=== PATIENT | male | born 1955 | race Caucasian/White ===

== ENCOUNTER → 2016-09-03 | Emergency (ER) | payer BC ==
[~2016-09-03] MED LIST: Aspirin Low Dose CHEW TAB* 81 MG PO ONE; NS 0.9% 1000 ML* 1,000 ML IV SCH
[2016-09-03 12:11] LABS: Hematocrit 46 % (42-52); Hemoglobin 15.9 g/dl (14.0-18.0); Mean Corpuscular HGB Conc 35 g/dl (31-36); Mean Corpuscular Hemoglobin 37 pg (27-31); Mean Corpuscular Volume 105 fL (80-94); Mean Platelet Volume 8 um3 (7.4-10.4); Red Blood Count 4.35 10^6/ul (4.0-5.4); Red Cell Distribution Width 13 % (10.5-15); White Blood Count 5.8 10^3/ul (3.5-10.8)
[2016-09-03 12:23] LABS: BUN/Creatinine Ratio 11.7 (8-20); EGFR Non-African American 61.8 (>60); Potassium 3.9 mmol/L (3.5-5.0)
[2016-09-03 12:24] LABS: Albumin 3.8 g/dL (3.2-5.2); C Reactive Protein 5.31 mg/L (< 5.00); Calcium 9.7 mg/dL (8.6-10.3); EGFR African American 79.4 (>60); Globulin 2.9 g/dL (2-4); Magnesium 2.2 mg/dL (1.9-2.7); Total Bilirubin 0.5 mg/dL (0.2-1.0); Total Protein 6.7 g/dL (6.4-8.9)
[2016-09-03 12:36] LABS: TSH (Thyroid Stimulating Horm) 1.35 mcIU/mL (0.34-5.60)
--- NOTE | 2016-09-03 12:38 | RAD ---
INDICATION: Chest pain COMPARISON: Chest x-ray dated March 30, 2013 TECHNIQUE: Single AP portable view of the chest was obtained. FINDINGS: Image quality is compromised due to the relative inferiority of a portable chest x-ray. The heart and mediastinum exhibit normal size and contour. The lungs are grossly clear. There is no evidence of a large pleural effusion. Visualized bones are normal for the patient's age. IMPRESSION: No radiographic evidence for acute cardiopulmonary abnormality on this portable chest x-ray.
[2016-09-03 13:43] LABS: Urine Bacteria Absent (Absent); Urine Bilirubin Negative (Negative); Urine Glucose Negative (Negative); Urine Nitrite Negative (Negative)
--- NOTE | 2016-09-03 13:57 | ED ---
Dayana Núñez Adam, scribed for Prince Luna MD on 09/03/16 at 1157 . HPI Chest Pain - HPI Summary HPI Summary: A 61 y/o male presents to the ED c/o CP that started around 10:00 this morning while he was sitting at his desk working on the computer. Initially, he rated the pain as 5/10 and currently he has no pain. He describes it as dull with pressure, located left anterior, and lasting 1 hour. Patient denies nausea, diaphoresis, lightheadedness, abdominal pain, or pain with inspiration. PMHx is positive for HTN and chronic lower extremity edema. FHx is negative for CAD. He is a former smoker. - History of Current Complaint Chief Complaint: EDChestPainROMI Time Seen by Provider: 09/03/16 11:40 Hx Obtained From: Patient Onset/Duration: Started Hours Ago - 2 hours Timing: Intermittent Initial Severity: Moderate - 5/10 Current Severity: None Pain Intensity: 0 Pain Scale Used: 0-10 Numeric Chest Pain Location: Left Anterior Chest Pain Radiates: No Character: Dull/Aching, Pressure/Squeezing Aggravating Factor(s): Nothing Alleviating Factor(s): Spontaneous Resolution Associated Signs and Symptoms: Negative: Lightheadedness, Diaphoresis, Nausea, Abdominal Pain - Allergy/Home Medications Allergies/Adverse Reactions: Allergies Allergy/AdvReac Type Severity Reaction Status Date / Time Seasonal Allergy Congestion Uncoded 01/18/15 12:41 PMH/Surg Hx/FS Hx/Imm Hx Endocrine/Hematology History: Denies: Hx Diabetes, Hx Thyroid Disease Cardiovascular History: Reports: Hx Hypertension Respiratory History: Reports: Hx Sleep Apnea - re-evaluation 05/2013 Denies: Hx Asthma, Hx Chronic Obstructive Pulmonary Disease (COPD) GI History: Reports: Hx Gastroesophageal Reflux Disease Denies: Hx Ulcer History: Reports: Hx Benign Prostatic Hyperplasia Musculoskeletal History: Reports: Hx Back Problems - hx of, Other Musculoskeletal History - Chronic lower extremity edema Psychiatric History: Reports: Hx Anxiety, Hx Depression - Surgical History Surgery Procedure, Year, and Place: Left hand fracture repair - Immunization History Date of Influenza Vaccine: 04/2016 Infectious Disease History: Yes Infectious Disease History: Reports: Hx Human Immunodeficiency Virus (HIV) Denies: Hx Hepatitis, History Other Infectious Disease, Traveled Outside the [place] in Last 30 Days - Family History Known Family History: Negative: Cardiac Disease - Social History Alcohol Use: Occasionally Alcohol Amount: 2 glasses of wine Substance Use Type: Reports: None Smoking Status (MU): Former Smoker Type: Cigarettes Amount Used/How Often: occasional Review of Systems Constitutional: Negative Negative: Fever Eyes: Negative ENT: Negative Positive: Chest Pain - Left anterior Respiratory: Negative Negative: Shortness Of Breath Gastrointestinal: Negative Negative: Abdominal Pain Genitourinary: Negative Positive: Arthralgia - posterior cervical neck pain, Edema - Chronic lower extremity edema Skin: Negative Neurological: Negative Psychological: Normal All Other Systems Reviewed And Are Negative: Yes Physical Exam Triage Information Reviewed: Yes Vital Signs On Initial Exam: Initial Vitals Temp Pulse Resp BP Pulse Ox 97 F 73 16 140/94 100 09/03/16 11:33 09/03/16 11:33 09/03/16 11:33 09/03/16 11:33 09/03/16 11:33 Vital Signs Reviewed: Yes Appearance: Positive: Well-Appearing, No Pain Distress Skin: Positive: Warm, Skin Color Reflects Adequate Perfusion, Dry Head/Face: Positive: Normal Head/Face Inspection Eyes: Positive: EOMI, BRADLEY ENT: Positive: Normal ENT inspection Neck: Positive: Supple, Nontender Respiratory/Lung Sounds: Positive: Clear to Auscultation, Breath Sounds Present Cardiovascular: Positive: RRR Abdomen Description: Positive: Nontender, Soft Bowel Sounds: Positive: Present Musculoskeletal: Positive: Normal Neurological: Positive: Normal, Sensory/Motor Intact, Alert, Oriented to Person Place, Time Psychiatric: Positive: Affect/Mood Appropriate - Yi Coma Scale Coma Scale Total: 15 Diagnostics - Vital Signs Vital Signs Temp Pulse Resp BP Pulse Ox 09/03/16 11:33 97 F 73 16 140/94 100 - Laboratory Lab Results: Lab Results 09/03/16 09/03/16 09/03/16 Range/Units 11:42 11:42 11:42 WBC (3.5-10.8) 10^3/ul RBC (4.0-5.4) 10^6/ul Hgb (14.0-18.0) g/dl Hct (42-52) % MCV (80-94) fL MCH (27-31) pg MCHC (31-36) g/dl RDW (10.5-15) % Plt Count (150-450) 10^3/ul MPV (7.4-10.4) um3 Neut % (Auto) (38-83) % Lymph % (Auto) (25-47) % [place] % (Auto) (1-9) % Eos % (Auto) (0-6) % Baso % (Auto) (0-2) % Absolute Neuts (auto) (1.5-7.7) 10^3/ul Absolute Lymphs (auto) (1.0-4.8) 10^3/ul Absolute Monos (auto) (0-0.8) 10^3/ul Absolute Eos (auto) (0-0.6) 10^3/ul Absolute Basos (auto) (0-0.2) 10^3/ul Absolute Nucleated RBC 10^3/ul Nucleated RBC % INR (Anticoag Therapy) 0.89 (0.89-1.11) APTT 23.2 L (26.0-36.3) seconds D-Dimer, Quantitative < 200 (Less Than 230) ng/mL Sodium 137 (133-145) mmol/L Potassium 3.9 (3.5-5.0) mmol/L Chloride 103 (101-111) mmol/L Carbon Dioxide 29 (22-32) mmol/L Anion Gap 5 (2-11) mmol/L BUN 14 (6-24) mg/dL Creatinine 1.20 H (0.67-1.17) mg/dL Est GFR ( Amer) 79.4 (>60) Est GFR (Non-Af Amer) 61.8 (>60) BUN/Creatinine Ratio 11.7 (8-20) Glucose 98 (70-100) mg/dL Lactic Acid (0.5-2.0) mmol/L Calcium 9.7 (8.6-10.3) mg/dL Magnesium 2.2 (1.9-2.7) mg/dL Total Bilirubin 0.50 (0.2-1.0) mg/dL AST 27 (13-39) U/L ALT 35 (7-52) U/L Alkaline Phosphatase 53 (34-104) U/L Total Creatine Kinase 64 (10-223) U/L CK-MB (CK-2) 2.5 (0.6-6.3) ng/mL Troponin I 0.00 (<0.04) ng/mL C-Reactive Protein 5.31 H (< 5.00) mg/L B-Natriuretic Peptide 26 ( - 100) pg/mL Total Protein 6.7 (6.4-8.9) g/dL Albumin 3.8 (3.2-5.2) g/dL Globulin 2.9 (2-4) g/dL Albumin/Globulin Ratio 1.3 (1-3) Lipase 117 H (11.0-82.0) U/L TSH 1.35 (0.34-5.60) mcIU/mL Urine Color Urine Appearance Urine pH (5-9) Ur Specific [place] (1.010-1.030) Urine Protein (Negative) Urine Ketones (Negative) Urine Blood (Negative) Urine Nitrate (Negative) Urine Bilirubin (Negative) Urine Urobilinogen (Negative) Ur Leukocyte Esterase (Negative) Urine WBC (Auto) (Absent) Urine RBC (Auto) (Absent) Urine Bacteria (Absent) Urine Glucose (Negative) 09/03/16 09/03/16 09/03/16 Range/Units 11:42 11:42 13:19 WBC 5.8 (3.5-10.8) 10^3/ul RBC 4.35 (4.0-5.4) 10^6/ul Hgb 15.9 (14.0-18.0) g/dl Hct 46 (42-52) % MCV 105 H (80-94) fL MCH 37 H (27-31) pg MCHC 35 (31-36) g/dl RDW 13 (10.5-15) % Plt Count 159 (150-450) 10^3/ul MPV 8 (7.4-10.4) um3 Neut % (Auto) 40.2 (38-83) % Lymph % (Auto) 44.7 (25-47) % [place] % (Auto) 12.9 H (1-9) % Eos % (Auto) 1.3 (0-6) % Baso % (Auto) 0.9 (0-2) % Absolute Neuts (auto) 2.3 (1.5-7.7) 10^3/ul Absolute Lymphs (auto) 2.6 (1.0-4.8) 10^3/ul Absolute Monos (auto) 0.7 (0-0.8) 10^3/ul Absolute Eos (auto) 0.1 (0-0.6) 10^3/ul Absolute Basos (auto) 0.1 (0-0.2) 10^3/ul Absolute Nucleated RBC 0.01 10^3/ul Nucleated RBC % 0.1 INR (Anticoag Therapy) (0.89-1.11) APTT (26.0-36.3) seconds D-Dimer, Quantitative (Less Than 230) ng/mL Sodium (133-145) mmol/L Potassium (3.5-5.0) mmol/L Chloride (101-111) mmol/L Carbon Dioxide (22-32) mmol/L Anion Gap (2-11) mmol/L BUN (6-24) mg/dL Creatinine (0.67-1.17) mg/dL Est GFR ( Amer) (>60) Est GFR (Non-Af Amer) (>60) BUN/Creatinine Ratio (8-20) Glucose (70-100) mg/dL Lactic Acid 1.3 (0.5-2.0) mmol/L Calcium (8.6-10.3) mg/dL Magnesium (1.9-2.7) mg/dL Total Bilirubin (0.2-1.0) mg/dL AST (13-39) U/L ALT (7-52) U/L Alkaline Phosphatase (34-104) U/L Total Creatine Kinase (10-223) U/L CK-MB (CK-2) (0.6-6.3) ng/mL Troponin I (<0.04) ng/mL C-Reactive Protein (< 5.00) mg/L B-Natriuretic Peptide ( - 100) pg/mL Total Protein (6.4-8.9) g/dL Albumin (3.2-5.2) g/dL Globulin (2-4) g/dL Albumin/Globulin Ratio (1-3) Lipase (11.0-82.0) U/L TSH (0.34-5.60) mcIU/mL Urine Color Yellow Urine Appearance Clear Urine pH 6.0 (5-9) Ur Specific [place] 1.014 (1.010-1.030) Urine Protein Negative (Negative) Urine Ketones Trace H (Negative) Urine Blood Negative (Negative) Urine Nitrate Negative (Negative) Urine Bilirubin Negative (Negative) Urine Urobilinogen Negative (Negative) Ur Leukocyte Esterase 2+ H (Negative) Urine WBC (Auto) 2+(11-20/hpf) H (Absent) Urine RBC (Auto) Absent (Absent) Urine Bacteria Absent (Absent) Urine Glucose Negative (Negative) Result Diagrams: 09/03/16 11:42 09/03/16 11:42 Lab Statement: Any lab studies that have been ordered have been reviewed, and results considered in the medical decision making process. - Radiology CXR Xray Interpretation: No Acute Changes Radiology Interpretation Completed By: Radiologist - EKG 11:24 Cardiac Rate: NL - 74 EKG Rhythm: Sinus Rhythm Ectopy: None EKG Interpretation: Minimal ST elevation inferior leads EKG Comparison: No Significant Change - From 03/30/13 Re-Evaluation - Re-Evaluation First Eval Re-Evaluation Time: 13:50 Change: Improved Comment: Discussed labs and imaging results with patient. He currently has no chest pain and is requesting discharge. Chest Pain Course/Dx - Course Assessment/Plan: DISCUSSED RESULTS WITH PATIENT TO INCLUDE THE TROPONIN USUALLY DOES NOT ELEVATE FOR 2-6 HOURS AFTER HEART INJURY. DISCUSSED ADMISSION FOR FURTHER WORK UP TO INCLUDE CARDIAC STRESS TEST. PATIENT DECLINED ADMISSION. DISCUSSED RECHECK TROPONIN 6 HOURS AFTER PAIN ONSET. PATIENT DECLINED RECHECK OF TROPONIN, WISES TO GO HOME AND F/U WITH PMD OUTPATIENT. DISCHARGE HOME STABLE. - Diagnoses Provider Diagnoses: Chest pain, Elevated lipase Discharge - Discharge Plan Condition: Stable Disposition: HOME Patient Education Materials: Chest Pain (ED) Referrals: Gilma Dennis NP [Primary Care Provider] - Additional Instructions: CALL YOUR DOCTOR TODAY TO FOLLOW UP. RETURN TO THE EMERGENCY DEPARTMENT FOR ANY WORSENING OF YOUR CONDITION; CHEST PAIN, SHORTNESS OF BREATH, YOU FEEL ILL OR QUESTIONS OR CONCERNS. The documentation as recorded by the Dayana sandoval Adam accurately reflects the service I personally performed and the decisions made by me, Prince Luna MD.
[2016-09-03 14:24] VITALS: BP 133/78
== END | disposition home or self-care (01) ==
LOC: ED 11:20
DX: R07.9 Chest pain, unspecified (principal); E78.89 Other lipoprotein metabolism disorders; I10 Essential (primary) hypertension; G47.30 Sleep apnea, unspecified; N40.0 Benign prostatic hyperplasia without lower urinary tract symptoms; B20 Human immunodeficiency virus [HIV] disease; Z87.891 Personal history of nicotine dependence; F41.9 Anxiety disorder, unspecified; F32.9 Major depressive disorder, single episode, unspecified
CPT/HCPCS: 36415; 71010; 80053; 81003; 81015; 82550; 82553; 83605; 83690; 83735; 83880; 84443; 84484; 85025; 85379; 85610; 85730; 86140; 87086; 93005; 96360; 99284; A9270-GY

== ENCOUNTER 2018-01-23 10:21 | Emergency (ER) | payer OTHER ==
--- OUTSIDE RECORDS SUMMARY | 2018-01-23 10:48 | XMS REPORT ---
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 PayID: [id number] WILMAN Lowe [id number] Medigap Part B Effective: 2017 Policy Number: Ana Rosa Jason [id number] Expires: 2017 Group Name: [employer] [address] [address] PayID: [id number] WILMAN Lowe [id number] Commercial Effective: 2017 Policy Number: Sushant Care-Man Brown Jason [id number] Medicaid PayID: [id number] 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 [employer] Cigarette Use Former Cigarette Smoker ETOH Use Occasionally consumes alcohol Recreational Drug Use Denies Drug Use Smoking Patient is a former smoker Enjoy Exercising Enjoys exercising Not as good lately Allergies, Adverse Reactions, Alerts Date Description Reaction Status Severity Comments 08/13/2014 NKDA active Medications Medication Date Status Form Strength Qnty SIG Indications Ordering Provider Seated Walker 01/10/ Active use with G90.3 Shawnti 2018 ambulation DIONICIO Ohara Carbidopa-Levod 01/10/ Active Tablets ER 25-100mg 30tab 1 po daily G90.3 Shawnti opa ER 2018 s DIONICIO Ohara Hydrocodone-Mookie 01/09/ Active Tablets 5-325mg 14tab 1 by mouth Akira taminophen 2018 s q4 - 6 William Calvillo, hours as [facility] needed Montelukast 10/30/ Active Tablets 10mg 90tab Take One Thompsonwnti Sodium 2016 s Tablet By William Calvillo, Mouth AT [facility] Bedtime Triumeq 11/21/ Active Tablets 600-50-300 1 tab po qd Gilma 2015 mg DIONICIO Warner Wellbutrin XL 08/13/ Active Tablets ER 300mg 90tab 1 by mouth Akira 2013 24HR s every day DIONICIO Ohara Metoprolol 08/13/ Active Tablets ER 50mg 90tab take one Gilma Succinate ER 2013 24HR s tablet by Jeannie, mouth every [facility] Depakote 08/13/ Active Tablets DR 500mg 270ta Take 1 Gilma 2013 bs Tablet In Jeannie, The Morning [facility] And 2 Tablets AT Night Finasteride 00// Active Tablets 5mg 30tab 1 tab by Gilma 0000 s mouth every Jeannie, day [employer] [facility] Probiotic 11/21/ Hx Capsules Gilma 2015 - Jeannie, 06/06/ [facility] 2016 Xanax 11/21/ Hx Tablets 0.5mg 30tab 1/2 to 1 by Gilma 2015 - s mouth twice Jeannie, 06/06/ a day as [facility] 2015 needed anxiety Hydrocodone-Mookie 02/11/ Hx Tablets 5-325mg 40for 1 by mouth Gilma taminophen 2014 - ty q4 - 6 Jeannie, 06/06/ hours as [facility] 2016 needed MSM 10/30/ Hx Capsules 750mg Gilma 2014 - Jeannie, 11/21/ [facility] 2016 Azithromycin 10/26/ Hx Tablets 250mg 6tabs take 2 486 Gilma 2014 - tablets Jeannie, 02/28/ today then [facility] 2014 1 tablet daily for the next 4 days Singulair 08/13/ Hx Tablets 10mg 90tab take one Gilma 2013 - s tablet by Jeannie, 10/30/ mouth at [facility] 2016 bedtime daily Levitra 08/13/ Hx Tablets 20mg 10tab Gilma 2013 - s Jeannie, 05/29/ [facility] 2016 Multivitamins 08/13/ Hx Capsules Gilma 2013 - Jeannie, 06/06/ [facility] 2016 Complera / Hx Tablets 200-25-300 daily at Unknown 0000 - mg noon with 11/21/ 2015 Immunizations CPT Code Status Date Vaccine Lot # [id number] Given 05/15/2016 Influenza Virus Vaccine, Quadrivalent, 3 Yr > Quad, Preserv Free 07873 Given 06/06/2015 Influenza Virus Vaccine, Quadrivalent, 3 Yr > [id number] Quad, Preserv Free 09024 Given 06/14/2014 Influenza Virus Vaccine, Quadrivalent, 3 Yr > Quad, Preserv Free Vital Signs Date Vital Result Comment 10/04/2017 Weight 189.00 lb Weight in kg's 85.730 BP Systolic 140 mmHg BP Diastolic 88 mmHg Heart Rate 92 /min Body Temperature 97.0 F Respiratory Rate 20 /min 05/29/2017 Weight 192.00 lb Weight in kg's 87.091 BP Systolic 132 mmHg BP Diastolic 80 mmHg Heart Rate 80 /min Body Temperature 97.0 F 06/06/2016 Weight 190.00 lb Weight in kg's 86.184 BP Systolic 115 mmHg BP Diastolic 85 mmHg Heart Rate 84 /min 02/14/2016 Weight 185.00 lb Weight in kg's 83.916 BP Systolic 138 mmHg BP Diastolic 90 mmHg Heart Rate 81 /min Body Temperature 98.6 F 11/22/2015 Weight 178.00 lb Weight in kg's 80.741 BP Systolic 126 mmHg BP Diastolic 84 mmHg Heart Rate 68 /min Height 67.5 inches 5'7.50" BMI (Body Mass Index) 27.5 kg/m2 09/12/2015 Weight 188.00 lb Weight in kg's 85.277 BP Systolic 154 mmHg 168/100 second read BP Diastolic 98 mmHg 168/100 second read Heart Rate 80 /min Body Temperature 97.4 F 05/09/2015 Weight 185.00 lb Weight in kg's 83.916 BP Systolic 140 mmHg BP Diastolic 90 mmHg Heart Rate 88 /min Body Temperature 96.7 F 02/28/2015 Weight 189.00 lb Weight in kg's 85.730 BP Systolic 130 mmHg BP Diastolic 82 mmHg Heart Rate 76 /min 10/26/2014 Weight 196.00 lb Weight in kg's 88.906 BP Systolic 140 mmHg BP Diastolic 100 mmHg Heart Rate 99 /min Body Temperature 96.4 F O2 % BldC Oximetry 98 % 08/13/2014 Weight 194.00 lb Weight in kg's 87.998 BP Systolic 120 mmHg BP Diastolic 76 mmHg Heart Rate 84 /min Height 67.5 inches 5'7.50" BMI (Body Mass Index) 29.9 kg/m2 Results Test Date Test Result H/L Range Note Laboratory test finding 10/04/2017 Vitamin B12 466 pg/mL 180-914 1, 2 CBC Auto Diff 10/04/2017 White Blood Count 6.6 10^3/uL 3.5-10.8 1 Red Blood Count 4.48 10^6/uL 4.0-5.4 1 Hemoglobin 16.7 g/dL 14.0-18.0 1 Hematocrit 48 % 42-52 1 Mean Corpuscular Volume 108 fL High 80-94 1, 3 Mean Corpuscular Hemoglobin 37 pg High 27-31 1 Mean Corpuscular HGB Conc 35 g/dL 31-36 1 Red Cell Distribution Width 14 % 10.5-15 1 Platelet Count 162 10^3/uL 150-450 1 Mean Platelet Volume 9 um3 7.4-10.4 1 Abs Neutrophils 3.3 10^3/uL 1.5-7.7 1 Abs Lymphocytes 2.3 10^3/uL 1.0-4.8 1 Abs Monocytes 0.9 10^3/uL High 0-0.8 1 Abs Eosinophils 0 10^3/uL 0-0.6 1 Abs Basophils 0 10^3/uL 0-0.2 1 Abs Nucleated RBC 0 10^3/uL 1 Granulocyte % 50.5 % 38-83 1 Lymphocyte % 34.8 % 25-47 1 Monocyte % 13.8 % High 1-9 1 Eosinophil % 0.5 % 0-6 1 Basophil % 0.4 % 0-2 1 Nucleated Red Blood Cells % 0.1 1 Lyme Western Blot 10/04/2017 Lyme Disease IgG Ab WB Negative Negative 1 Lyme Disease IgG Bands Present p28, p23, kDa 1 Lyme Disease IgM Ab WB Negative Negative 1 Lyme Disease IgM Bands Present p41, kDa 1 Lyme Disease Interpretation See Comment 1, 4 Laboratory test 10/04/2017 Syphillis Igg Nonreactive Nonreactive 1, 5 finding W/Reflex RPR Laboratory test 01/25/2017 Surgical Pathology SEE RESULT BELOW 6 finding CBC Auto Diff 12/17/2016 White Blood Count 8.0 10^3/uL 3.5-10.8 Red Blood Count 4.74 10^6/uL 4.0-5.4 Hemoglobin 17.1 g/dL 14.0-18.0 Hematocrit 49 % 42-52 Mean Corpuscular Volume 104 fL High 80-94 Mean Corpuscular Hemoglobin 36 pg High 27-31 Mean Corpuscular HGB Conc 35 g/dL 31-36 Red Cell Distribution Width 13 % 10.5-15 Platelet Count 204 10^3/uL 150-450 Mean Platelet Volume 9 um3 7.4-10.4 Abs Neutrophils 4.1 10^3/uL 1.5-7.7 Abs Lymphocytes 2.6 10^3/uL 1.0-4.8 Abs Monocytes 1.1 10^3/uL High 0-0.8 Abs Eosinophils 0.2 10^3/uL 0-0.6 Abs Basophils 0.1 10^3/uL 0-0.2 Abs Nucleated RBC 0.01 10^3/uL Granulocyte % 51.2 % 38-83 Lymphocyte % 33.0 % 25-47 Monocyte % 13.2 % High 1-9 Eosinophil % 2.0 % 0-6 Basophil % 0.6 % 0-2 Nucleated Red Blood Cells % 0.1 Comp Metabolic Panel 12/17/2016 Sodium 137 mmol/L 133-145 Potassium 4.6 mmol/L 3.5-5.0 Chloride 102 mmol/L 101-111 Co2 Carbon Dioxide 30 mmol/L 22-32 Anion Gap 5 mmol/L 2-11 Glucose 105 mg/dL High 70-100 Blood Urea Nitrogen 15 mg/dL 6-24 Creatinine 1.09 mg/dL 0.67-1.17 BUN/Creatinine Ratio 13.8 8-20 Calcium 9.5 mg/dL 8.6-10.3 Total Protein 6.7 g/dL 6.4-8.9 Albumin 3.9 g/dL 3.2-5.2 Globulin 2.8 g/dL 2-4 Albumin/Globulin Ratio 1.4 1-3 Total Bilirubin 0.40 mg/dL 0.2-1.0 Alkaline Phosphatase 67 U/L 34-104 Alt 21 U/L 7-52 Ast 16 U/L 13-39 Egfr Non- 69.0 >60 Egfr 88.7 >60 7 Lipid Profile (Trig/Chol/HDL) 12/17/2016 Triglycerides 134 mg/dL 8 Cholesterol 187 mg/dL 9 HDL Cholesterol 41.2 mg/dL 10 LDL Cholesterol 119 mg/dL 11 CD4/CD8 T-Cell Count 12/17/2016 Absolute CD45 Count 3.03 thou/mcL 0.82- 2.84 % CD3 76 % 58-86 % CD4 38 % 32-64 % CD8 39 % 8-40 CD3 2308 cells/L 550-2202 CD4 1155 cells/L 365-1437 CD8 1188 cells/L 80-846 H/S Ratio 1.0 >=0.9 CD4 Reviewed By See Comment 12 Laboratory test 12/17/2016 HIV-1 Rna QNT By PCR <20 copies/mL Undetected 13 finding Sli Laboratory test 11/20/2016 PSA Screening 0.877 ng/mL 0-4.0 14 finding Lyme Western Blot 07/12/2016 Lyme Disease IgG Ab Negative Negative WB Lyme Disease IgG Bands Present No bands detecte <SEE NOTE> kDa 15 Lyme Disease IgM Ab WB Negative Negative Lyme Disease IgM Bands Present No bands detecte <SEE NOTE> kDa 16 Lyme Disease Interpretation See Comment 17 Lyme Western Blot 06/06/2016 Lyme Disease IgG Ab WB Negative Negative Lyme Disease IgG Bands Present p28,p23, kDa Lyme Disease IgM Ab WB Negative Negative Lyme Disease IgM Bands Present No bands detecte <SEE NOTE> kDa 18 Lyme Disease Interpretation See Comment 19 Laboratory test finding 04/27/2016 PSA Screening 1.622 ng/mL 0-4.0 20 Urinalysis Profile 09/12/2015 Urine Color Yellow Urine Appearance Clear Urine Specific [place] 1.019 1.010-1.030 Urine pH 5.0 5-9 Urine Urobilinogen Negative Negative Urine Ketones Trace Negative Urine Protein 1+(30 mg/dL) Negative Urine Leukocytes Negative Negative Urine Blood 1+ Negative Urine Nitrite Negative Negative Urine Bilirubin Negative Negative Urine Glucose 1+(50 mg/dL) Negative Urine White Blood Cell 1+(6-10/hpf) Absent Urine Red Blood Cell 2+(6-10/hpf) Absent Urine Bacteria Absent Absent Urine Hyaline Casts Present Absent Urine DIP 09/12/2015 Leukocytes NEG Neg Urine Nitrites NEG Neg Urobilinogen NORM Norm Total Protein, Urine 100 High Neg Urine pH 5 5-6 Urine Blood +++ Neg Specific [place] 1.025 High 1.01-1.02 Urine Ketones 5 High Neg Urine Bilirubin NEG Neg Urine Glucose 100 High Norm CBC Auto Diff 03/22/2015 White Blood Count 5.7 10^3/uL 4.8-10.8 Red Blood Count 4.77 10^6/uL 4.0-5.4 Hemoglobin 16.2 g/dL 14.0-18.0 Hematocrit 48 % 42-52 Mean Corpuscular Volume 101 fL High 80-94 Mean Corpuscular Hemoglobin 34 pg High 27-31 Mean Corpuscular HGB Conc 34 g/dL 31-36 Red Cell Distribution Width 13 % 10.5-15 Platelet Count 190 10^3/uL 150-450 Mean Platelet Volume 8 um3 7.4-10.4 Abs Neutrophils 3.1 10^3/uL 1.5-7.7 Abs Lymphocytes 1.9 10^3/uL 1.0-4.8 Abs Monocytes 0.6 10^3/uL 0-0.8 Abs Eosinophils 0.1 10^3/uL 0-0.6 Abs Basophils 0.1 10^3/uL 0-0.2 Abs Nucleated RBC 0 10^3/uL Granulocyte % 54.8 % 38-83 Lymphocyte % 32.4 % 25-47 Monocyte % 9.9 % High 1-9 Eosinophil % 1.6 % 0-6 Basophil % 1.3 % 0-2 Nucleated Red Blood Cells % 0 Comp Metabolic Panel 03/22/2015 Sodium 137 mmol/L 133-145 Potassium 4.4 mmol/L 3.5-5.0 Chloride 103 mmol/L 101-111 Co2 Carbon Dioxide 26 mmol/L 22-32 Anion Gap 8 mmol/L 2-11 Glucose 88 mg/dL 70-100 Blood Urea Nitrogen 13 mg/dL 6-24 Creatinine 1.05 mg/dL 0.67-1.17 BUN/Creatinine Ratio 12.4 8-20 Calcium 9.2 mg/dL 8.6-10.3 Total Protein 7.1 g/dL 6.4-8.9 Albumin 4.2 g/dL 3.2-5.2 Globulin 2.9 g/dL 2-4 Albumin/Globulin Ratio 1.4 1-3 Total Bilirubin 0.40 mg/dL 0.2-1.0 Alkaline Phosphatase 89 U/L 34-104 Alt 17 U/L 7-52 Ast 13 U/L 13-39 Egfr Non- 72.5 >60 Egfr 93.3 >60 21 Lipid Profile (Trig/Chol/HDL) 03/22/2015 Triglycerides 162 mg/dL 22 Cholesterol 157 mg/dL 23 HDL Cholesterol 36.7 mg/dL 24 LDL Cholesterol 88 mg/dL 25 Laboratory test finding 01/28/2015 PSA Screening 0.786 ng/mL 0-4.0 26 Laboratory test finding 10/26/2014 Rheumatoid Factor <15 IU/mL <15 27 Erythrocyte Sed Rate 16 mm/Hr 0-20 Yakelin (Anti-Nuclear AB) Screen Negative Negative Laboratory test finding 10/26/2014 Lyme Disease Serology Negative Negative 28 Vitamin D, 25 Hydroxy 10/26/2014 25-Hydroxy Vitamin D2 <4.0 ng/mL 25-Hydroxy Vitamin D3 51 ng/mL 25-Hydroxy Vitamin D Total 51 ng/mL 29 Laboratory test finding 10/26/2014 Uric Acid 6.5 mg/dL 4.4-7.6 C Reactive Protein 24.02 mg/L High < 5.00 30 Comp Metabolic Panel 10/26/2014 Sodium 135 mmol/L 133-145 Potassium 3.9 mmol/L 3.5-5.0 Chloride 100 mmol/L Low 101-111 Co2 Carbon Dioxide 28 mmol/L 22-32 Anion Gap 7 mmol/L 2-11 Glucose 102 mg/dL High 70-100 Blood Urea Nitrogen 17 mg/dL 6-24 Creatinine 1.33 mg/dL High 0.67-1.17 BUN/Creatinine Ratio 12.8 8-20 Calcium 9.9 mg/dL 8.6-10.3 Total Protein 7.6 g/dL 6.4-8.9 Albumin 4.1 g/dL 3.2-5.2 Globulin 3.5 g/dL 2-4 Albumin/Globulin Ratio 1.2 1-3 Total Bilirubin 0.60 mg/dL 0.2-1.0 Alkaline Phosphatase 56 U/L 34-104 Alt 19 U/L 7-52 Ast 15 U/L 13-39 Egfr Non- 55.2 >60 Egfr 71.0 >60 31 CBC Auto Diff 10/26/2014 White Blood Count 8.8 10^3/uL 4.8-10.8 Red Blood Count 4.88 10^6/uL 4.0-5.4 Hemoglobin 16.8 g/dL 14.0-18.0 Hematocrit 49 % 42-52 Mean Corpuscular Volume 100 fL High 80-94 Mean Corpuscular Hemoglobin 34 pg High 27-31 Mean Corpuscular HGB Conc 34 g/dL 31-36 Red Cell Distribution Width 13 % 10.5-15 Platelet Count 200 10^3/uL 150-450 Mean Platelet Volume 9 um3 7.4-10.4 Abs Neutrophils 5.3 10^3/uL 1.5-7.7 Abs Lymphocytes 2.1 10^3/uL 1.0-4.8 Abs Monocytes 1.2 10^3/uL High 0-0.8 Abs Eosinophils 0.1 10^3/uL 0-0.6 Abs Basophils 0.1 10^3/uL 0-0.2 Abs Nucleated RBC 0.03 10^3/uL Granulocyte % 60.5 % 38-83 Lymphocyte % 23.8 % Low 25-47 Monocyte % 14.0 % High 1-9 Eosinophil % 0.8 % 0-6 Basophil % 0.9 % 0-2 Nucleated Red Blood Cells % 0.3 CBC Auto Diff 10/11/2014 White Blood Count 7.8 10^3/uL 4.8-10.8 Red Blood Count 4.77 10^6/uL 4.0-5.4 Hemoglobin 16.3 g/dL 14.0-18.0 Hematocrit 48 % 42-52 Mean Corpuscular Volume 100 fL High 80-94 Mean Corpuscular Hemoglobin 34 pg High 27-31 Mean Corpuscular HGB Conc 34 g/dL 31-36 Red Cell Distribution Width 13 % 10.5-15 Platelet Count 225 10^3/uL 150-450 Mean Platelet Volume 8 um3 7.4-10.4 Abs Neutrophils 4.2 10^3/uL 1.5-7.7 Abs Lymphocytes 2.4 10^3/uL 1.0-4.8 Abs Monocytes 1.0 10^3/uL High 0-0.8 Abs Eosinophils 0.1 10^3/uL 0-0.6 Abs Basophils 0.1 10^3/uL 0-0.2 Abs Nucleated RBC 0.01 10^3/uL Granulocyte % 54.1 % 38-83 Lymphocyte % 30.9 % 25-47 Monocyte % 12.9 % High 1-9 Eosinophil % 1.3 % 0-6 Basophil % 0.8 % 0-2 Nucleated Red Blood Cells % 0.1 Comp Metabolic Panel 10/11/2014 Sodium 138 mmol/L 133-145 Potassium 4.2 mmol/L 3.5-5.0 Chloride 103 mmol/L 101-111 Co2 Carbon Dioxide 31 mmol/L 22-32 Anion Gap 4 mmol/L 2-11 Glucose 97 mg/dL 70-100 Blood Urea Nitrogen 18 mg/dL 6-24 Creatinine 1.08 mg/dL 0.67-1.17 BUN/Creatinine Ratio 16.7 8-20 Calcium 9.8 mg/dL 8.6-10.3 Total Protein 7.4 g/dL 6.4-8.9 Albumin 4.1 g/dL 3.2-5.2 Globulin 3.3 g/dL 2-4 Albumin/Globulin Ratio 1.2 1-3 Total Bilirubin 0.50 mg/dL 0.2-1.0 Alkaline Phosphatase 56 U/L 34-104 Alt 17 U/L 7-52 Ast 11 U/L Low 13-39 Egfr Non- 70.2 >60 Egfr 90.3 >60 32 1 [id number] Normal Range 180 to 914 Indeterminate Range 145 to 180 Deficient Range <145 3 Consistent with Previous Results Reported on 07-29-17 4 Specific serologic response to B. burgdorferi infection is not detected, but cannot rule out early infection during which low or undetectable antibody levels to B. burgdorferi may be present. If clinically indicated, a new serum specimen should be submitted in 7-14 days. ADDITIONAL INFORMATION CDC criteria require >=5 bands for IgG or >=2 bands for IgM for the Immunoblot to be considered positive. Bands (e.g.,p41) may be detected in patients without Lyme disease, and patterns not meeting the CDC criteria should be interpreted with caution. Immunoblot should be ordered only on specimens that are positive or equivocal by a FDA-licensed Lyme disease antibody screening test (e.g., EIA). Test Performed by: [facility] [address] [place] [address] 5 Warning: A positive result is not useful for establishing a diagnosis of syphilis. In most situations, such a result may reflect a prior treated infection; a negative result can exclude a diagnosis of syphilis except for incubating or early primary disease. 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 -- No high grade dysplasia or malignancy. CLINICAL HISTORY No history given POST-OPERATIVE DIAGNOSIS Colonoscopy to cecum, fair prep - 2 polyps biopsied GROSS DESCRIPTION The specimen is received in formalin labeled, Cecal Polyps (Biopsy), and consists of a 0.6 x 0.5 x 0.3 cm aggregate of ramos-pink irregular to polypoid soft tissue fragments which is submitted entirely in one cassette. Signed (signature on file) Chris Wilde MD [id number] END OF REPORT * ML=Testing performed at Main Lab DEPARTMENT OF PATHOLOGY, [address] [place] [address] Chris Wilde M.D. Director [facility] # [id number] 7 Because ethnic data is not always readily available, this report includes an eGFR for both -Americans and non- Americans. The National Kidney Disease Education Program (NKDEP) does not endorse the use of the MDRD equation for patients that are not between the ages of 18 and 70, are , have extremes of body size, muscle mass, or nutritional status, or are non- or non-. According to the National Kidney Foundation, irrespective of diagnosis, the stage of the disease is based on the level of kidney function: Stage Description GFR(mL/min/1.73 m(2)) 1 Kidney damage with normal or decreased GFR 90 2 Kidney damage with mild decrease in GFR 60-89 3 Moderate decrease in GFR 30-59 4 Severe decrease in GFR 15-29 5 Kidney failure <15 (or dialysis) 8 Desirable <150 Borderline high 150-199 High 200-499 Very High >500 9 Desirable <200 Borderline high 200-239 High >239 10 Low <40 Desirable: 40-60 High: >60 11 Desirable: <100 mg/dL Near Optimal: 100-129 mg/dL Borderline High: 130-159 mg/dL High: 160-189 mg/dL Very High: >189 mg/dL 12 RESULT: Reviewed by: Jeremie Medina M.D., D. , D(ABKYMBERLY) ADDITIONAL INFORMATION This test was developed using an analyte specific reagent. Its performance characteristics were determined by [facility] in a manner consistent with CLIA requirements. This test has not been cleared or approved by the U.S. Food and Drug Administration. Test Performed by: [place] [address] 13 Result in log copies/mL is <1.30. HIV-1 RNA level detected is <20 copies/mL (<1.30 log copies/mL). This assay cannot accurately quantify HIV-1 RNA below this level. ADDITIONAL INFORMATION The quantification range of this assay is 20 to 10,000,000 copies/mL (1.30 log copies/mL to 7.00 log copies/mL). Testing was performed by the ROEL AmpliPrep/ROEL TaqMan HIV-1 Test version 2.0 ([employer] This test has been modified from the hand hose cutter's instructions. Its performance characteristics were determined by [facility] in a manner consistent with CLIA requirements. This test has not been cleared or approved by the U.S. Food and Drug Administration. Test Performed by: [place] [address] 14 Serum levels of PSA measured using the Giselle Ringold DXI Hybritech immunoassay should not be interpreted as absolute evidence of the presence or absence of disease. The PSA value should be used in conjunction with other pertinent clinical diagnostic procedures. The values obtained with different assay methods or kits cannot be used interchangeably. 15 No bands detected 16 No bands detected 17 Specific serologic response to B. burgdorferi infection is not detected, but cannot rule out early infection during which low or undetectable antibody levels to B. burgdorferi may be present. If clinically indicated, a new serum specimen should be submitted in 7-14 days. ADDITIONAL INFORMATION CDC criteria require >=5 bands for IgG or >=2 bands for IgM for the Immunoblot to be considered positive. Bands (e.g.,p41) may be detected in patients without Lyme disease, and patterns not meeting the CDC criteria should be interpreted with caution. Immunoblot should be ordered only on specimens that are positive or equivocal by a FDA-licensed Lyme disease antibody screening test (e.g., EIA). Test Performed by: [place] [address] Bath Steward: Prince Samson II, M.D., Ph.D. 18 No bands detected 19 Specific serologic response to B. burgdorferi infection is not detected, but cannot rule out early infection during which low or undetectable antibody levels to B. burgdorferi may be present. If clinically indicated, a new serum specimen should be submitted in 7-14 days. ADDITIONAL INFORMATION CDC criteria require >=5 bands for IgG or >=2 bands for IgM for the Immunoblot to be considered positive. Bands (e.g.,p41) may be detected in patients without Lyme disease, and patterns not meeting the CDC criteria should be interpreted with caution. Immunoblot should be ordered only on specimens that are positive or equivocal by a FDA-licensed Lyme disease antibody screening test (e.g., EIA). Test Performed by: [place] [address] Bath Steward: Prince Samson II, M.D., Ph.D. 20 Serum levels of PSA measured using the Giselle Julius DXI Hybritech immunoassay should not be interpreted as absolute evidence of the presence or absence of disease. The PSA value should be used in conjunction with other pertinent clinical diagnostic procedures. The values obtained with different assay methods or kits cannot be used interchangeably. 21 Because ethnic data is not always readily available, this report includes an eGFR for both -Americans and non- Americans. The National Kidney Disease Education Program (NKDEP) does not endorse the use of the MDRD equation for patients that are not between the ages of 18 and 70, are , have extremes of body size, muscle mass, or nutritional status, or are non- or non-. According to the National Kidney Foundation, irrespective of diagnosis, the stage of the disease is based on the level of kidney function: Stage Description GFR(mL/min/1.73 m(2)) 1 Kidney damage with normal or decreased GFR 90 2 Kidney damage with mild decrease in GFR 60-89 3 Moderate decrease in GFR 30-59 4 Severe decrease in GFR 15-29 5 Kidney failure <15 (or dialysis) 22 Desirable <150 Borderline high 150-199 High 200-499 Very High >500 23 Desirable <200 Borderline high 200-239 High >239 24 Low <40 Desirable: 40-60 High: >60 25 Desirable: <100 mg/dL Near Optimal: 100-129 mg/dL Borderline High: 130-159 mg/dL High: 160-189 mg/dL Very High: >189 mg/dL 26 Serum levels of PSA measured using the Giselle Julius DXI Hybritech immunoassay should not be interpreted as absolute evidence of the presence or absence of disease. The PSA value should be used in conjunction with other pertinent clinical diagnostic procedures. The values obtained with different assay methods or kits cannot be used interchangeably. 27 Test Performed by: [facility] [address] [place] [address] Bath Steward: Prince Samson II, M.D., Ph.D. 28 Serologic response to B. burgdorferi infection is not detected, but cannot rule out early infection during which low or undetectable antibody levels to B. burgdorferi may be present. If clinically indicated, a new serum specimen should be submitted in 7-14 days. Test Performed by: [facility] [place] [address] Bath Steward: Prince Samson II, M.D., Ph.D. 29 Interpretation: 51-80 ng/mL (increased risk of hypercalciuria) REFERENCE VALUE 25-HYDROXY D TOTAL (D2+D3) Optimum levels in the healthy population are 20-50, patients with bone disease may benefit from higher levels within this range. Test Performed by: [facility] [place] [address] Bath Steward: Prince Samson II, M.D., Ph.D. 30 Acute inflammation: >10.00 31 Because ethnic data is not always readily available, this report includes an eGFR for both -Americans and non- Americans. The National Kidney Disease Education Program (NKDEP) does not endorse the use of the MDRD equation for patients that are not between the ages of 18 and 70, are , have extremes of body size, muscle mass, or nutritional status, or are non- or non-. According to the National Kidney Foundation, irrespective of diagnosis, the stage of the disease is based on the level of kidney function: Stage Description GFR(mL/min/1.73 m(2)) 1 Kidney damage with normal or decreased GFR 90 2 Kidney damage with mild decrease in GFR 60-89 3 Moderate decrease in GFR 30-59 4 Severe decrease in GFR 15-29 5 Kidney failure <15 (or dialysis) 32 Because ethnic data is not always readily available, this report includes an eGFR for both -Americans and non- Americans. The National Kidney Disease Education Program (NKDEP) does not endorse the use of the MDRD equation for patients that are not between the ages of 18 and 70, are , have extremes of body size, muscle mass, or nutritional status, or are non- or non-. According to the National Kidney Foundation, irrespective of diagnosis, the stage of the disease is based on the level of kidney function: Stage Description GFR(mL/min/1.73 m(2)) 1 Kidney damage with normal or decreased GFR 90 2 Kidney damage with mild decrease in GFR 60-89 3 Moderate decrease in GFR 30-59 4 Severe decrease in GFR 15-29 5 Kidney failure <15 (or dialysis) Procedures Date CPT Code Description Status Comment 01/24/2017 Colonoscopy Completed One tubular adenoma, repeat 2021. (Previous 2012) 06/06/2016 15337 EKG, at Least 12 Leads Completed w/Interpretation and Report 02/28/2015 72303 Removal-Impacted Cerumen Completed Encounters Type Date Location Provider CPT E/M Dx Office Visit 10/04/2017 1:30p Main Office MENDY López-C 97255 R53.1 Office Visit 05/29/2017 9:45a Main Office MENDY Armas-C 79974 D48.5 I10 E78.00 F33.1 Office Visit 06/06/2016 9:45a Main Office MENDY Armas-C 36322 R07.9 Office Visit 02/14/2016 3:45p Main Office MENDY López-C 53606 L74.0 Office Visit 11/22/2015 1:30p Main Office MENDY Armas-C 54341 Z00.00 Office Visit 09/12/2015 3:30p [place] [address] A09 Office Visit 05/09/2015 9:45a Main Office MENDY Armas-C 58041 553.8 Office Visit 02/28/2015 3:30p Main Office MENDY Armas-C 31725 401.9 272.0 380.4 Office Visit 10/26/2014 3:00p Main Office MENDY Armas-C 83840 719.69 486 Office Visit 08/13/2014 1:30p Main Office MENDY Armas-C 42220 V70.0 272.0 401.9 Plan of Care Future Appointment(s):01/31/2018 2:30 pm - MENDY López-C at Main [facility]/10/2018 - MENDY López-CM54.16 Radiculopathy, lumbar regionNew Xrays:MRI Lumbar Spine W/O ContrastComments:neuro findings consistent with nerve impingement, cauda equina, order MRI of the lumbar xvxkeR81.3 Multi- system degeneration of the autonomic nervous systemNew Medication:Seated WalkerCarbidopa-Levodopa ER 25-100 mgComments:start sinemet, will follow in 2 weeks, has an appt with neurology in January .... script for seated walkerFollow up :2-3 weeks
[2018-01-23] MEDS ORDERED: NS 0.9% 1000 ML* 1,000 ML IV ONE (10:51)
[2018-01-23] MEDS ORDERED: Ketorolac INJ* 30 MG/ML 1 ML VIAL IV PUSH ONE (10:51)
[2018-01-23 11:36] LABS: ABS Basophils 0.1 10^3/ul (0-0.2); ABS Eosinophils 0 10^3/ul (0-0.6); ABS Lymphocytes 1.2 10^3/ul (1.0-4.8); ABS Monocytes 0.9 10^3/ul (0-0.8); ABS Nucleated RBC 0 10^3/ul; Eosinophil % 0.2 % (0-6); Hematocrit 50 % (42-52); Hemoglobin 17.3 g/dl (14.0-18.0); Lymphocyte % 19.8 % (25-47); Mean Corpuscular HGB Conc 35 g/dl (31-36); Mean Corpuscular Hemoglobin 37 pg (27-31); Mean Corpuscular Volume 105 fL (80-94); Mean Platelet Volume 7.5 um3 (7.4-10.4); Nucleated Red Blood Cells % 0; Platelet Count 247 10^3/ul (150-450); Red Blood Count 4.75 10^6/ul (4.0-5.4); Red Cell Distribution Width 13 % (10.5-15); White Blood Count 6.2 10^3/ul (3.5-10.8)
--- NOTE | 2018-01-23 11:45 | RAD ---
Indication: Right flank pain. CT of the abdomen and pelvis was performed without oral or IV contrast administration. Coronal and sagittal reconstructed images were obtained. The lung bases demonstrate no pleural fluid, nodules or masses. Heart is of normal size without evidence of pericardial effusion. Bibasilar atelectasis is noted. Liver is normal in size. No focal lesions or intrahepatic duct dilatation is noted. The gallbladder demonstrates no calcified gallstones. No pericholecystic fluid or wall thickening is noted. The pancreas demonstrates no mass or pancreatic ductal dictation. The spleen is normal in size. No adrenal masses are noted. The kidneys demonstrate no hydronephrosis in either kidney. Nonobstructing calculi lower pole right kidney. No dilated loops of bowel are noted. CT of the pelvis and straight normal appendix. No free fluid is identified. Diverticulosis without definite evidence of diverticulitis is noted. No hernias are noted. IMPRESSION: NONOBSTRUCTING CALCULI LOWER POLE RIGHT KIDNEY. NO EVIDENCE OF OBSTRUCTIVE UROPATHY IS NOTED. NORMAL APPENDIX.
[2018-01-23 12:11] LABS: EGFR Non-African American 71.8 (>60)
[2018-01-23] MEDS ORDERED: Morphine VIAL* 4 MG/ML VIAL (1 ml vial) IV ONE (12:31)
[2018-01-23] MEDS ORDERED: Benzonatate CAP* 100 MG PO ONE (13:56)
[2018-01-23 14:52] LABS: Urine Appearance Clear; Urine Blood 2+ (Negative); Urine Color Yellow; Urine Ketones Trace (Negative); Urine Protein 1+(30 mg/dL) (Negative); Urine Specific Gravity 1.019 (1.010-1.030); Urine Urobilinogen Negative (Negative)
[2018-01-23 16:10] VITALS: BP 182/97
--- NOTE | 2018-01-23 18:09 | ED ---
Back Pain - HPI Summary HPI Summary: Patient is a 62-year-old male who presents emergency department for right-sided mid back pain times one day. Patient states he had a recent back injury and has been dealing with back pain. He recently had an MRI of his lumbar spine. He denies any new injuries. He states pain is constant but occasionally gets worse. Patient denies fever, chills, urinary symptoms. He does note chronic cough. Pain does not radiate into legs. Denies numbness, tingling or weakness in legs. Denies chest pain or shortness of breath. Denies bowel or bladder incontinence or retention. - History of Current Complaint Chief Complaint: EDBackInjuryPain Stated Complaint: BACK PAIN Time Seen by Provider: 01/23/18 10:38 Hx Obtained From: Patient Pain Intensity: 0 Pain Scale Used: 0-10 Numeric - Allergies/Home Medications Allergies/Adverse Reactions: Allergies Allergy/AdvReac Type Severity Reaction Status Date / Time latex Allergy Hives Verified 01/16/18 09:12 Seasonal Allergy Congestion Uncoded 01/16/18 09:12 Home Medications: Home Medications Abacavir/Dolutegravir/Lamivudi [Triumeq 600-50-300 mg] 1 tab PO DAILY 01/23/18 [ History Confirmed 01/23/18] BuPROPion XL* [Bupropion XL*] 300 mg PO DAILY 01/23/18 [History Confirmed ] Carbidopa/Levodop 25/100 MG(*) [Sinemet 25/100 TAB(*)] 1 tab PO DAILY 01/23/18 [ History Confirmed 01/23/18] Divalproex DR TAB(*) [Depakote DR(*)] 1,000 mg PO QPM 01/23/18 [History Confirmed 01/23/18] Gabapentin CAP(*) [Neurontin 300 CAP(*)] 300 mg PO BID 01/23/18 [History Confirmed 01/23/18] PMH/Surg Hx/FS Hx/Imm Hx Previously Healthy: Yes Endocrine/Hematology History: Denies: Hx Diabetes, Hx Thyroid Disease Cardiovascular History: Reports: Hx Hypertension Denies: Hx Pacemaker/ICD Respiratory History: Reports: Hx Sleep Apnea - re-evaluation 05/2013 Denies: Hx Asthma, Hx Chronic Obstructive Pulmonary Disease (COPD) GI History: Reports: Hx Gastroesophageal Reflux Disease Denies: Hx Ulcer History: Reports: Hx Benign Prostatic Hyperplasia Musculoskeletal History: Reports: Hx Back Problems - hx of, Other Musculoskeletal History - Chronic lower extremity edema Sensory History: Denies: Hx Hearing Aid Psychiatric History: Reports: Hx Anxiety, Hx Depression Denies: Hx Panic Disorder - Surgical History Surgery Procedure, Year, and Place: Left WRIST fracture repair X2 HARDWARE REMOVED; - Immunization History Date of Influenza Vaccine: 04/2016 Infectious Disease History: No Infectious Disease History: Reports: Hx Human Immunodeficiency Virus (HIV) Denies: Hx Hepatitis, History Other Infectious Disease, Traveled Outside the [place] in Last 30 Days - Family History Known Family History: Negative: Cardiac Disease - Social History Alcohol Use: Occasionally Alcohol Amount: 2 glasses of wine Substance Use Type: Reports: None Smoking Status (MU): Former Smoker Type: Cigarettes Amount Used/How Often: occasional Review of Systems Constitutional: Negative Negative: Fever, Chills Cardiovascular: Negative Negative: Palpitations, Chest Pain Positive: Cough - chronic Gastrointestinal: Negative Positive: flank pain Negative: Weakness, Paresthesia, Numbness All Other Systems Reviewed And Are Negative: Yes Physical Exam Triage Information Reviewed: Yes Vital Signs On Initial Exam: Initial Vitals Temp Pulse Resp BP Pulse Ox 99.1 F 93 18 169/104 90 01/23/18 10:29 01/23/18 10:29 01/23/18 10:29 01/23/18 10:29 01/23/18 10:29 Vital Signs Reviewed: Yes Appearance: Positive: Pain Distress - Patient sitting in bed, appears uncomfortable but nontoxic. Skin: Positive: Warm, Dry Head/Face: Positive: Normal Head/Face Inspection Eyes: Positive: Normal Neck: Positive: Supple Respiratory/Lung Sounds: Positive: Clear to Auscultation, Breath Sounds Present Cardiovascular: Positive: Normal, RRR Abdomen Description: Positive: Nontender - Obese. Negative Laughlin sign., Soft Musculoskeletal: Positive: Other - No midline tenderness. Significant right CVA tenderness. Neurological: Positive: Normal, CN Intact II-III Psychiatric: Positive: Affect/Mood Appropriate Diagnostics - Vital Signs Vital Signs Temp Pulse Resp BP Pulse Ox 01/23/18 16:10 98.3 F 88 19 182/97 93 01/23/18 16:01 103 24 182/97 89 01/23/18 16:00 102 23 192/114 94 01/23/18 15:00 98 17 92 01/23/18 14:00 95 19 90 01/23/18 13:00 99 16 92 01/23/18 12:39 18 01/23/18 12:20 93 15 168/95 91 01/23/18 12:00 96 18 90 01/23/18 11:08 165/104 01/23/18 11:07 165/104 01/23/18 11:01 92 18 92 01/23/18 10:59 89 13 165/104 89 01/23/18 10:29 99.1 F 92 12 169/104 92 - Laboratory Lab Results: Lab Results 01/23/18 01/23/18 01/23/18 Range/Units 11:23 11:23 14:28 WBC 6.2 (3.5-10.8) 10^3/ul RBC 4.75 (4.0-5.4) 10^6/ul Hgb 17.3 (14.0-18.0) g/dl Hct 50 (42-52) % MCV 105 H (80-94) fL MCH 37 H (27-31) pg MCHC 35 (31-36) g/dl RDW 13 (10.5-15) % Plt Count 247 (150-450) 10^3/ul MPV 7.5 (7.4-10.4) um3 Neut % (Auto) 65.0 (38-83) % Lymph % (Auto) 19.8 L (25-47) % [place] % (Auto) 13.8 H (0-7) % Eos % (Auto) 0.2 (0-6) % Baso % (Auto) 1.2 (0-2) % Absolute Neuts (auto) 4.0 (1.5-7.7) 10^3/ul Absolute Lymphs (auto) 1.2 (1.0-4.8) 10^3/ul Absolute Monos (auto) 0.9 H (0-0.8) 10^3/ul Absolute Eos (auto) 0 (0-0.6) 10^3/ul Absolute Basos (auto) 0.1 (0-0.2) 10^3/ul Absolute Nucleated RBC 0 10^3/ul Nucleated RBC % 0 Sodium 140 (139-145) mmol/L Potassium 4.3 (3.5-5.0) mmol/L Chloride 104 (101-111) mmol/L Carbon Dioxide 25 (22-32) mmol/L Anion Gap 11 (2-11) mmol/L BUN 11 (6-24) mg/dL Creatinine 1.05 (0.67-1.17) mg/dL Est GFR ( Amer) 92.3 (>60) Est GFR (Non-Af Amer) 71.8 (>60) BUN/Creatinine Ratio 10.5 (8-20) Glucose 92 (70-100) mg/dL Calcium 8.8 (8.6-10.3) mg/dL Total Bilirubin 0.60 (0.2-1.0) mg/dL AST 35 (13-39) U/L ALT 7 (7-52) U/L Alkaline Phosphatase 51 (34-104) U/L Total Protein 7.3 (6.4-8.9) g/dL Albumin 3.7 (3.2-5.2) g/dL Globulin 3.6 (2-4) g/dL Albumin/Globulin Ratio 1.0 (1-3) Lipase 76 (11.0-82.0) U/L Urine Color Yellow Urine Appearance Clear Urine pH 5.0 (5-9) Ur Specific [place] 1.019 (1.010-1.030) Urine Protein 1+(30 mg/dl) A (Negative) Urine Ketones Trace A (Negative) Urine Blood 2+ A (Negative) Urine Nitrate Negative (Negative) Urine Bilirubin Negative (Negative) Urine Urobilinogen Negative (Negative) Ur Leukocyte Esterase Negative (Negative) Urine WBC (Auto) Trace(0-5/hpf) (Absent) Urine RBC (Auto) 3+(>10/hpf) A (Absent) Urine Bacteria Absent (Absent) Hyaline Casts Present A (Absent) Urine Glucose Negative (Negative) Result Diagrams: 01/23/18 11:23 01/23/18 11:23 Lab Statement: Any lab studies that have been ordered have been reviewed, and results considered in the medical decision making process. Back Pain Course/Dx - Course Course Of Treatment: He presented to the ER for right flank pain. He did have a recent back injury and had MRIs which unremarkable. Today patient has no midline tenderness in his pain okay to his right flank. He is aferile with stable vital signs. He denies history of kidney stones. While speaking with patient and he will occasionally no bowel in increased pain. Suspect ureterolithiasis. We'll obtain labs, urine and CT scan. Patient was given IV Toradol. He did receive IV morphine an ambulance. Labs unremarkable. Urinalysis does show elevated RBCs without signs of infection. CT scan shows a 3 mm right calculus in the renal pelvic. No obstruction. No other acute findings seen on CT, reading per radiology. On reexamination patient's pain has not been improved. He was ordered a dose of morphine. Patient's oxygen saturation did drop to 89% he was placed on oxygen. The patient's pain is secondary to right renal colic. He is comfortable being discharged at this time. He was given Tessalon Perle per request for ongoing cough is coughing was exacerbated his pain. Oxygen saturations improved. Advised him to follow up with urology. Small prescription for pain medication prescribed. Advised to return to the ER the weekend if symptoms change or worsen. Patient understands and agrees with this plan. - Diagnoses Differential Diagnosis/HQI/PQRI: Positive: Fracture, Herniated Disc, Renal Colic , Strain, Sprain Provider Diagnoses: Renal colic Discharge - Sign-Out/Discharge Documenting (check all that apply): Discharge/Admit/Transfer - Discharge Plan Condition: Good Disposition: HOME Prescriptions: oxyCODONE/Acetamin 5/325 MG* [Percocet 5/325 TAB*] 1 tab PO Q6H PRN #12 tab MDD 4 tablets PRN Reason: Pain Patient Education Materials: Renal Colic (ED) Referrals: Akira Calvillo [employer] CONSULTANT [Primary Care Provider] - Additional Instructions: Call your PCP today for a close follow up appointment Pain medication as directed Increase fluids Return to ER for increased pain, fever, vomiting or if concerned - Billing Disposition and Condition Condition: GOOD Disposition: HOME
== END 2018-01-23 16:10 | disposition home or self-care (01) ==
LOC: ED 10:21
DX: N20.0 Calculus of kidney (principal); K21.9 Gastro-esophageal reflux disease without esophagitis; Z87.891 Personal history of nicotine dependence; I10 Essential (primary) hypertension
CPT/HCPCS: 36415; 74176; 80053; 81003; 81015; 83690; 85025; 87086; 96360; 96374; 96375; 99283; A9270-GY; J1885; J2270

== ENCOUNTER 2018-04-23 13:52 | Inpatient (IN) | payer OTHER ==
[2018-04-23] MEDS ORDERED: Thiamine IV* 100 MG, Folic Acid IV* 1 MG, Multiple Vitamin IV ADULT* 10 ML in NS 0.9% 1... IV ONE (14:34)
--- OUTSIDE RECORDS SUMMARY | 2018-04-23 14:41 | XMS REPORT ---
:1955 External Reference #:[id number] Author Organization [facility] Address [address] [place] [address] Phone [phone] Care Team Providers Name Role Phone Akira Calvillo NP Primary Care Physician Unavailable Payers Type Date Identification Numbers Payment Provider Subscriber Commercial Policy Number: [id number] [employer] [place] Jermaine Jason PayID: [id number] [address] [place] [id number] Problems Date Description Provider Status Onset: Mood disorder Active Onset: H/O: depression Active Onset: Anxiety Active Onset: Chronic back pain Active Onset: H/O: hypertension Active Onset: HIV positive Active Onset: Seasonal allergy Active Onset: 04/11/2018 Combined form of senile cataract Toni Del Cid M.D. Active Family History Date Family Member(s) Problem(s) Comments Father No Current Problems Mother No Current Problems Social History Type Date Description Comments Marital Status Legal Status: Domestic Partner Work Status Unemployed ETOH Use Consumes 2-3 glasses of wine per week Smoking Light tobacco smoker (10 or fewer cigarettes/day) Recreational Drug Use Denies Drug Use Daily Caffeine Does Not Consume Caffeine Allergies, Adverse Reactions, Alerts Date Description Reaction Status Severity Comments 04/11/2018 NKDA active 04/11/2018 Seasonal active 04/11/2018 Latex active Medications Medication Date Status Form Strength Qnty SIG Indications Ordering Provider Oxycodone-Aceta Active Tablets 5-325mg Rajinder minjacquelyn 00 Shawnti SANITARY CHEMIST Metoprolol Active Tablets ER 50mg Jeannie, Succinate ER 00 24HR Gilma SANITARY CHEMIST Furosemide Active Tablets 20mg Storm, 00 Thompsonwnti SANITARY CHEMIST Divalproex Active Tablets DR 500mg Storm, Sodium Thompsonwntmaria ines TREVINO Finasteride Active Tablets 5mg Vorha, 00 Kunal Langston Bupropion HCL Active Tablets ER 300mg Lamont, ER (XL) 00 24HR Izabel Langston Triumeq Active Tablets [id number] [place], 00 Carlos Newberry M.D. Montelukast Active Tablets 10mg Storm, Sodium Akira TREVINO Results Description No Information Procedures Description No Information
--- NOTE | 2018-04-23 14:58 | RAD ---
INDICATION: Altered mental status. COMPARISON: Correlation is made with a prior study from September 03, 2016. TECHNIQUE: An AP portable film of the chest was obtained. FINDINGS: The heart is within normal limits in size. Mediastinal and hilar contours appear within normal limits. The lungs are underinflated with more focal elevation of the left hemidiaphragm. There is a small infiltrate at the left lung base. No pleural effusion is seen. IMPRESSION: SMALL LEFT BASILAR INFILTRATE.
--- NOTE | 2018-04-23 15:03 | RAD ---
INDICATION: Intracranial injury. EtOH COMPARISON: CT brain December 06, 2011 TECHNIQUE: Noncontrast axial source images were acquired from the skull base to the vertex. FINDINGS: Ventricles/sulci: There is cortical atrophy with compensatory dilatation of the CSF spaces. Brain parenchyma: There is no acute focal parenchymal finding, evidence of intracranial mass, or intracranial mass effect. Mild decreased attenuation periventricular white matter suggests mild chronic microvascular ischemia. Intracranial hemorrhage:None. Extra-axial spaces: There are no abnormal extra axial fluid collections or evidence of extra-axial mass. Calvarium: There is no calvarial fracture or other calvarial abnormality. Scalp: There is a small right frontal scalp hematoma. Paranasal sinuses/mastoid: There is 1 cm mucous retention cyst or polyp in left maxillary antrum. There is minimal right maxillary antral mucoperiosteal thickening. There is opacification of multiple ethmoid air cells. Other: None. IMPRESSION: CORTICAL ATROPHY WITH CHRONIC MICROVASCULAR ISCHEMIC CHANGES. NO ACUTE FINDINGS. SMALL RIGHT FRONTAL SCALP HEMATOMA.
--- NOTE | 2018-04-23 15:15 | RAD ---
INDICATION: Head injury. Possible neck injury COMPARISON: None TECHNIQUE: Noncontrast axial source images was performed from the skull base to the thoracic inlet. Coronal and and sagittal reformatted images were generated. FINDINGS: Vertebrae: There is no fracture or acute focal bony lesion. There are minor degenerative changes consisting of minor spur formation about the C5-C7 Alignment: The craniocervical junction appears normal. The cervical vertebrae are normally aligned. Central Canal: There are no significant CT abnormalities of the central canal or foramina. MR imaging is a more sensitive method to evaluate the canal and foramina. Intervertebral disc spaces: There is minor disc space narrowing at C7-T1 The remaining disc spaces are maintained. Brain: The visualized brain appears unremarkable. Soft tissues: The visualized soft tissue elements of the neck are unremarkable. The prevertebral soft tissues appear normal. The lung apices are clear. IMPRESSION: MINOR MIDCERVICAL OSTEOARTHRITIC CHANGE. NO ACUTE FINDINGS.
[2018-04-23] MEDS ORDERED: LORazepam INJ* 2 MG/ML 1 ML VIAL IV PUSH ONE ×2 (15:16→16:15)
[2018-04-23 15:38] LABS: EGFR Non-African American 85.8 (>60)
--- NOTE | 2018-04-23 15:54 | ED ---
Altered Mental Status - HPI Summary HPI Summary: Pt is a 62 y/o male BIBA who presents to the ED c/o AMS. As per EMS, pt has had multiple falls, is unable to ambulate, and is detoxing from alcohol since yesterday. Pt states he passed out while walking to the bathroom. EMS found him wedged between the couch and coffee table, and he was slightly confused making unrelated comments. Pt states his last drink was at 8:00, and he had 4 oz of vodka. He normally drinks 12 oz of vodka per day in addition to wine. He states that his drinking has become worse recently. Pt has also had a moist cough for 3 months, and dyspnea on exertion. PMHx HIV, AFib, HTN, alcoholism, depression, and seizure. - History Of Current Complaint Chief Complaint: EDGeneral Stated Complaint: GENERAL ILLNESS Hx Obtained From: Patient Onset/Duration: Suddenly Character: Confusion Aggravating Factor(s): Other - Alcoholic stopped using alcohol as much Associated Signs And Symptoms: Negative: Nausea, Vomiting, Headache - Allergies/Home Medications Allergies/Adverse Reactions: Allergies Allergy/AdvReac Type Severity Reaction Status Date / Time latex Allergy Hives Verified 04/23/18 14:31 Seasonal Allergy Congestion Uncoded 04/23/18 14:31 PMH/Surg Hx/FS Hx/Imm Hx Endocrine/Hematology History: Denies: Hx Diabetes, Hx Thyroid Disease Cardiovascular History: Reports: Hx Hypertension Denies: Hx Pacemaker/ICD Respiratory History: Reports: Hx Sleep Apnea - re-evaluation 05/2013 Denies: Hx Asthma, Hx Chronic Obstructive Pulmonary Disease (COPD) GI History: Reports: Hx Gastroesophageal Reflux Disease Denies: Hx Ulcer History: Reports: Hx Benign Prostatic Hyperplasia Denies: Hx Renal Disease Musculoskeletal History: Reports: Hx Back Problems - hx of, Other Musculoskeletal History - Chronic lower extremity edema Sensory History: Denies: Hx Hearing Aid Psychiatric History: Reports: Hx Anxiety, Hx Depression Denies: Hx Panic Disorder - Surgical History Surgery Procedure, Year, and Place: Left WRIST fracture repair X2 HARDWARE REMOVED; - Immunization History Date of Influenza Vaccine: 04/2016 Immunizations Up to Date: Yes Infectious Disease History: No Infectious Disease History: Reports: Hx Human Immunodeficiency Virus (HIV) Denies: Hx Hepatitis, History Other Infectious Disease, Traveled Outside the [place] in Last 30 Days - Family History Known Family History: Negative: Cardiac Disease - Social History Alcohol Use: Daily Alcohol Amount: 2 glasses of wine, vodka Hx Substance Use: No Substance Use Type: Reports: None Hx Tobacco Use: Yes Smoking Status (MU): Former Smoker Type: Cigarettes Amount Used/How Often: occasional Review of Systems Negative: Fever, Chills Negative: Blurred Vision, Diplopia Negative: Sore Throat, Ear Ache Negative: Chest Pain Positive: Shortness Of Breath - HICKEY, Cough - Wet Negative: Abdominal Pain, Other - Hematochezia Negative: hematuria Positive: Bruising. Negative: Rash Neurological: Other - Confusion Positive: Syncope Positive: Depressed All Other Systems Reviewed And Are Negative: No Physical Exam - Summary Physical Exam Summary: Appearance: Alert, conversive, unkempt with flakes on his face Skin: Warm, dry, no mottling, no rashes, bruises on left proximal lateral humerus, RUE, and knees bilaterally HEENT: EOMI, PERRL, dry mucous membranes Neck: No masses on the neck, supple Respiratory: Rhonchi, breath sounds present, no rales, no wheezes Cardiovascular: RRR, pulses are symmetrical in both lower and upper extremities Abdomen: Soft, non-tender Bowel Sounds: Present Musculoskeletal: No CVA tenderness, no obvious deformity, moving all extremities in a grossly normal manner Neurological: A&Ox3, CN II-XII Intact, moving all extremities symmetrically Psychiatric: Delusional, tangential Triage Information Reviewed: Yes Vital Signs On Initial Exam: Initial Vitals Temp Pulse Resp BP Pulse Ox 99.0 F 114 20 150/99 93 04/23/18 13:56 04/23/18 13:56 04/23/18 13:56 04/23/18 13:56 04/23/18 13:56 Vital Signs Reviewed: Yes Diagnostics - Vital Signs Vital Signs Temp Pulse Resp BP Pulse Ox 04/23/18 15:29 16 04/23/18 15:00 106 96 04/23/18 14:58 104 170/101 95 04/23/18 14:12 110 162/107 90 04/23/18 13:56 99.0 F 114 20 150/99 93 - Laboratory Lab Results: Lab Results 04/23/18 04/23/18 Range/Units 15:12 15:12 Sodium 138 (135-145) mmol/L Potassium 3.5 (3.5-5.0) mmol/L Chloride 98 L (101-111) mmol/L Carbon Dioxide 23 (22-32) mmol/L Anion Gap 17 H (2-11) mmol/L BUN 26 H (6-24) mg/dL Creatinine 0.90 (0.67-1.17) mg/dL Est GFR ( Amer) 103.8 (>60) Est GFR (Non-Af Amer) 85.8 (>60) BUN/Creatinine Ratio 28.9 H (8-20) Glucose 112 H (70-100) mg/dL Calcium 9.9 (8.6-10.3) mg/dL Magnesium 2.4 (1.9-2.7) mg/dL Total Bilirubin 1.60 H (0.2-1.0) mg/dL AST 49 H (13-39) U/L ALT 39 (7-52) U/L Alkaline Phosphatase 65 (34-104) U/L Troponin I 0.03 (<0.04) ng/mL B-Natriuretic Peptide 139 H ( - 100) pg/mL Total Protein 7.5 (6.4-8.9) g/dL Albumin 4.0 (3.2-5.2) g/dL Globulin 3.5 (2-4) g/dL Albumin/Globulin Ratio 1.1 (1-3) Lipase 162 H (11.0-82.0) U/L TSH Pending Serum Alcohol Pending Result Diagrams: 04/23/18 15:12 04/23/18 15:12 Lab Statement: Any lab studies that have been ordered have been reviewed, and results considered in the medical decision making process. - Radiology CXR Xray Interpretation: Positive (See Comments) - SMALL LEFT BASILAR INFILTRATE. ED physician reviewed radiology report. Radiology Interpretation Completed By: Radiologist - CT Cervical Spine CT Interpretation: No Acute Changes - MINOR MIDCERVICAL OSTEOARTHRITIC CHANGE. NO ACUTE FINDINGS. ED physician reviewed radiology report. CT Interpretation Completed By: Radiologist Brain CT CT Interpretation: Positive (See Comments) - CORTICAL ATROPHY WITH CHRONIC MICROVASCULAR ISCHEMIC CHANGES. NO ACUTE FINDINGS. SMALL RIGHT FRONTAL SCALP HEMATOMA. ED physician reviewed radiology report. CT Interpretation Completed By: Radiologist Altered Mental Statu Course/Dx - Course Course Of Treatment: Pt is a 62 y/o male BIBA who presents to the ED c/o AMS. As per EMS, pt has had multiple falls, is unable to ambulate, and is detoxing from alcohol since yesterday. Pt states he passed out while walking to the bathroom. Pt states his last drink was at 8:00, and he had 4 oz of vodka. He normally drinks 12 oz of vodka per day in addition to wine. Pt has also had a moist cough for 3 months, and dyspnea on exertion. A physical exam revealed unkempt with flakes on his face, bruises on left proximal lateral humerus, RUE, and knees bilaterally, dry mucous membranes, rhonchi, delusional and tangential. A CXR revealed SMALL LEFT BASILAR INFILTRATE. A cervical spine CT was negative. A brain CT revealed CORTICAL ATROPHY WITH CHRONIC MICROVASCULAR ISCHEMIC CHANGES. NO ACUTE FINDINGS. SMALL RIGHT FRONTAL SCALP HEMATOMA. Final dx are pneumonia and delirium tremens. Pt will be admitted and Dr. Stephens accepts pt for admission. - Diagnoses Provider Diagnoses: Pneumonia, Delirium tremens - Provider Notifications Discussed Care Of Patient With: Vanesa Stephens Time Discussed With Above Provider: 16:00 Instructed by Provider To: Admit As Inpatient Discharge - Sign-Out/Discharge Documenting (check all that apply): Patient Departure - Admit, Sign-Out Patient Signing out patient TO: Vanesa Stephens - Discharge Plan Condition: Stable Disposition: ADMITTED TO [facility] Referrals: Akira Calvillo, JUNIOR STAFF ACCOUNTANT [Primary Care Provider] - - Attestation Statements Document Initiated by Scribe: Yes Documenting Scribe: Prema Camp Provider For Whom Scribe is Documenting (Include Credential): Kira Mason MD Scribe Attestation: Prema Núñez, scribed for Kira Mason MD on 04/23/18 at 1709.
[2018-04-23] MEDS ORDERED: Piperacillin/Tazobac ADVAN(*) 3.375 GM in NS 0.9% 100 ML* 100 ML IVPB ONE (16:15)
[2018-04-23 16:46] LABS: ABS Basophils 0 10^3/ul (0-0.2); ABS Eosinophils 0 10^3/ul (0-0.6); ABS Lymphocytes 0.7 10^3/ul (1.0-4.8); ABS Monocytes 1.2 10^3/ul (0-0.8); ABS Neutrophils 7.2 10^3/ul (1.5-7.7); ABS Nucleated RBC 0 10^3/ul; Eosinophil % 0 % (0-6); Hematocrit 49 % (42-52); Hemoglobin 16.9 g/dl (14.0-18.0); Mean Corpuscular HGB Conc 35 g/dl (31-36); Mean Corpuscular Hemoglobin 37 pg (27-31); Mean Corpuscular Volume 106 fL (80-94); Mean Platelet Volume 8.2 um3 (7.4-10.4); Nucleated Red Blood Cells % 0.1; Platelet Count 158 10^3/ul (150-450); Red Blood Count 4.58 10^6/ul (4.00-5.40); Red Cell Distribution Width 14 % (10.5-15); White Blood Count 9.1 10^3/ul (3.5-10.8)
[2018-04-23] MEDS ORDERED: Ondansetron INJ* 2 MG/ML VIAL IV PRN (17:10)
[2018-04-23] MEDS ORDERED: Albuterol 2.5 MG/3 ML NEB.SOL* (0.083%) INH PRN (17:10)
[2018-04-23] MEDS ORDERED: Al Hydrox/Mg Hydrox/Simet LIQ* 30 ML UDC PO PRN (17:10)
[2018-04-23] MEDS ORDERED: NS 0.9% 1000 ML* 1,000 ML IV SCH (17:15)
[2018-04-23] MEDS ORDERED: NS 0.9% 1000 ML* 1,000 ML IV ONE (17:24)
[2018-04-23] MEDS ORDERED: Thiamine IV* 100 MG/ML 2 ML VIAL IM ONE (17:24)
[2018-04-23] MEDS ORDERED: Midazolam* 1 MG/ML 2 ML VIAL (2 MG) IV ONE (17:54)
[2018-04-23] MEDS ORDERED: Midazolam concentrated* 5 MG/ML 1 ml VIAL ONE (17:58)
[2018-04-23] MEDS ORDERED: Midazolam concentrated* 5 MG/ML 1 ml VIAL IV ONE (17:59)
[2018-04-23] MEDS ORDERED: Divalproex DR TAB(*) 500 MG PO SCH (18:00)
[2018-04-23] MEDS ORDERED: LORazepam TAB(*) 1 MG PO SCH (18:00)
--- NOTE | 2018-04-23 19:54 | HP ---
CC: Akira Calvillo NP * ADMISSION HISTORY AND PHYSICAL: DATE OF ADMISSION: 04/23/18 PATIENT OF ADMITTING HOSPITALIST: Vanesa Stephens DO * (DICTATED BY MARVA CAM) PRIMARY CARE PHYSICIAN: Akira Calvillo NP CHIEF COMPLAINT: Weakness and falls. HISTORY OF PRESENT ILLNESS: Mr. Jason is a 62-year-old gentleman with past medical history significant for alcohol abuse, Parkinson's disease, hypertension , and remote history of HIV for which he has been treated with unknown recent CD4 count who was brought to the emergency room via ambulance with complaints of multiple falls and weakness for the past couple of days. It is very unclear what is the actual history is given the fact that the patient is a very poor historian; however, most of the information gathered from him and looking at current records shows that he has been battling with alcohol abuse issues for the past years. He has been drinking on average 12 ounces of vodka per day in addition to undetermined amount of wine and occasional beers. He reports that his last alcoholic beverage was taken yesterday; however, he said that he took 4 ounces of vodka this morning. He was brought by ambulance after he was found at home wedged between his couch and coffee table. He appears to be slightly confused and making unrelated comments. He was brought to the emergency room for further evaluation. The patient had workup in the emergency room that revealed CBC showing normal white count. He had a CT scan of the head and the cervical spine that showed no evidence of any acute hemorrhagic issues or acute fractures. He also had a chest x-ray that was consistent with small left basilar infiltrate. The patient did report occasional cough with sputum production, but denies any fever, chills, or difficulty breathing. He denies any chest pain, palpitation. He does have history of atrial fibrillation as well; however, again, it was unclear from him that if he was on any sort of anticoagulation therapy and for what duration of time. Given his ongoing symptoms including intermittent extremity tremors with visible detox symptoms, we were asked to see the patient for further evaluation and to consider admission. PAST MEDICAL HISTORY: Significant for: 1. History of human immunodeficiency virus, again unclear if he had a full blown AIDS in the past or not and I do not have any records of recent CD4 cell count. 2. History of atrial fibrillation. 3. Hypertension. 4. Alcohol abuse. 5. Depression. 6. Seizure disorder. PAST SURGICAL HISTORY: Significant for left wrist fracture, repair twice with hardware removal. CURRENT MEDICATIONS: His medications at home according to EMS record include: 1. Triumeq 600/50/300 mg 1 tablet p.o. daily. 2. Bupropion XL 300 mg p.o. daily. 3. Carbidopa/levodopa 25/100 one tablet p.o. daily. 4. Depakote 500 mg p.o. daily and Depakote 1000 mg p.o. q.h.s. 5. Proscar 5 mg p.o. daily. 6. Gabapentin 300 mg p.o. b.i.d. 7. Metoprolol 50 mg p.o. daily. 8. Singulair 10 mg p.o. daily. 9. Percocet 5/325 one tablet q.6 hours as needed for pain. ALLERGIES: Include LATEX and SEASONAL ALLERGIES. FAMILY HISTORY: Unable to obtain family history as the patient does not answer question clearly; however, from prior record, it appears that family history was noncontributory. SOCIAL HISTORY: The patient lives with a roommate whose name is Toni Torres who appears to be also the healthcare proxy carrier. He is nonsmoker who smokes marijuana occasionally. He again drinks on average 12 ounces of vodka daily with last alcohol consumed this morning. He denies caffeine intake. REVIEW OF SYSTEMS: Unable to attain due to the patient's condition and unable to answer to questions. PHYSICAL EXAMINATION GENERAL: He is an upper middle age gentleman, appears older than stated age, very untidy with obvious body odor and urinary incontinence who occasionally alerts to answer question, but mostly confused and does not make sense with verbalization, but appears in no acute distress at the time of admission. VITAL SIGNS: Most recent set of vitals with temperature of 99.0, heart rate of 113, blood pressure 144/100, respirations of 20 with O2 sat of 95% on room air. HEENT: Head is normocephalic, atraumatic. Sclerae are anicteric. There is slight thick yellowish discharge at the nasolacrimal area bilaterally. There is no periorbital edema or cellulitis. NECK: Supple. Trachea midline. No cervical adenopathy, thyromegaly or JVD. LUNGS: Breath sounds are decreased throughout. There are decreased breath sounds, more marked at the bases with some rhonchi and wheezes noted. HEART: Irregular rate and rhythm. Normal S1 and S2 without rubs, murmurs, or gallops. BACK: With normal curvature. No CVA tenderness. ABDOMEN: Soft, nontender, and nondistended. There is a small umbilical hernia that was easily reduced and appears to be nontender. No other hernias, masses, or hepatosplenomegaly. RECTAL: Exam deferred at this time. EXTREMITIES: Without cyanosis, clubbing, or edema. NEUROLOGIC: He is awake, alert on occasion and oriented to self only. The patient exhibits bilateral symmetrical upper and lower extremity occasional tremors that last for 2 to 3 seconds every time. Unable to assess for motor or sensory function at this time. LABORATORY WORKUP: CBC with white count of 9,000, hemoglobin of 16.9, hematocrit of 49, platelets of 158. Chemistry panel with sodium of 138, potassium 3.5, chloride 98, CO2 23, BUN of 26, and creatinine of 0.9. His glucose is 112. Magnesium 2.4. LFTs with elevated bilirubin of 1.6. Transaminases are normal. Total creatine kinase was 1422. Troponin at 0.03. BNP is 139. Lipase 162 and TSH is 0.6. Toxicology screen showing serum alcohol of less than 10. ACCESSORY DIAGNOSTIC DATA: Chest x-ray as mentioned above showed small left basilar infiltrate. CT scan of the head and cervical spine with no acute changes. IMPRESSION: A 62-year-old gentleman with past medical history significant for hypertension, atrial fibrillation, HIV, depression, seizure, and alcohol abuse who was brought to the emergency room via ambulance with frequent falls and weakness for the past couple of days and was found to be in alcohol withdrawal at the time of admission. ASSESSMENT AND PLAN: 1. Alcohol abuse with withdrawal symptoms. The patient appears to be in acute withdrawal from detoxing. Again, it is unclear if he had a drink this morning; however, he reports that he had only 4 ounces of vodka. His serum alcohol level is less than 10 at admission. He exhibits intermittent upper extremity tremors and will be covered with [facility] protocol using lorazepam as needed. I had talked to his roommate and healthcare proxy carrier, Mr. Torres, over the phone who appears to understand and agreed to admission plans. Again, the patient would like to continue his full code status at this admission. I will provide supplemental thiamine, folic acid and he was given a banana bag in the ED and I will give him another bolus of IV fluids. We will keep him closely monitored at the telemetry unit with seizure precaution given his history. 2. History of atrial fibrillation. Again, it is unclear if the patient had been on any sort of anticoagulation therapy. He has been tachycardic due to his detoxing symptoms and we will continue to monitor, provide IV fluids, and we will continue his beta-breana at home dose. 3. Hypertension. I will continue his metoprolol and Proscar. 4. Anxiety and depression. I will continue his Depakote and Wellbutrin. 5. History of human immunodeficiency virus. The patient will continue his oral dose of antiretroviral treatment using Triumeq as prescribed. Again, it is unclear if he ever experienced any acquired immunodeficiency syndrome symptoms. He does not appear to have any active or opportunistic infection except for pneumonia presented on chest x-ray. He does not have any leukocytosis or leukopenia and has not had any fever. 6. We will obtain social welfare clerk consult as the patient's situation at his residence appeared to be suboptimal. His personal hygiene and overall condition appears to be really concerning at this time. We will discuss it with manager of case to see if the patient would qualify for a placement of possibly alcohol rehab facility admission. 7. DVT prophylaxis. The patient is high risk and we will cover him with subcu heparin. 8. Code status. He wishes to be a full code. 9. Disposition. Admit to telemetry unit for delirium tremens and treatment of alcohol withdrawal symptoms with [facility] protocol as well as treatment of community - acquired pneumonia. TIME SPENT: Approximately 60 minutes were spent admitting this patient, with greater than 50% on taking history and performing physical exam. I have discussed the case with my attending, Dr. Stephens, who agreed to plan of care. MARVA CAM [id number]/[facility] #: [id number] RAMA
[2018-04-23] MEDS: Azithromycin IV(*) 500 MG in NS 0.9% 250 ML* 250 ML IVPB SCH (20:06)
[2018-04-23] MEDS: Gabapentin CAP(*) 300 MG PO SCH (20:21)
[2018-04-23] MEDS: Montelukast Sodium TAB* 10 MG PO SCH (20:21)
[2018-04-23] MEDS: cefTRIAXone(*) 1 GM in NS 0.9% 50 ML* 50 ML IVPB SCH (21:10)
[2018-04-23] MEDS: Valproic Acid IV(*) 500 MG in NS 0.9% 100 ML* 100 ML IVPB SCH (21:17)
[2018-04-23] MEDS: Heparin VIAL(*) 5000 UNITS/ML VIAL (FIVE THOUSAND) SUBCUT SCH (22:54)
[2018-04-24 00:36] LABS: Urine Red Blood Cell 1+(3-5/hpf) (Absent); Urine White Blood Cell Trace(0-5/hpf) (Absent)
[2018-04-24 00:51] LABS: Urine Color Yellow
[2018-04-24 00:52] LABS: Urine Appearance Cloudy; Urine Specific Gravity 1.025 (1.010-1.030); Urine Urobilinogen Negative (Negative)
[2018-04-24 00:53] LABS: Urine Ketones 3+ (Negative); Urine Protein 1+(30 mg/dL) (Negative)
[2018-04-24 00:54] LABS: Urine Blood N (Negative)
[2018-04-24] MEDS ORDERED: Furosemide IV* 10 MG/ML 2 ML VIAL (20 MG) IV ONE (03:39)
--- NOTE | 2018-04-24 03:42 | PN ---
Progress Note - Progress Note Date of Service: 04/24/18 Note: Patient with worsening tachypnea, crackles b/l, increase work of breathing. O2 increased to 15 L. Will d/c IVFs, portable CXR and Lasix 20 mg IV x 1
[2018-04-24] MEDS ORDERED: Furosemide IV* 10 MG/ML 2 ML VIAL (20 MG) ONE (03:45)
[2018-04-24 04:44] LABS: ABS Basophils 0 10^3/ul (0-0.2); ABS Eosinophils 0 10^3/ul (0-0.6); ABS Monocytes 1.4 10^3/ul (0-0.8); ABS Nucleated RBC 0 10^3/ul; Eosinophil % 0 % (0-6); Hematocrit 44 % (42-52); Hemoglobin 15.5 g/dl (14.0-18.0); Lymphocyte % 10.8 % (25-47); Mean Corpuscular HGB Conc 35 g/dl (31-36); Mean Corpuscular Hemoglobin 38 pg (27-31); Mean Corpuscular Volume 106 fL (80-94); Mean Platelet Volume 7.4 um3 (7.4-10.4); Nucleated Red Blood Cells % 0; Platelet Count 145 10^3/ul (150-450); Red Blood Count 4.12 10^6/ul (4.00-5.40); Red Cell Distribution Width 14 % (10.5-15); White Blood Count 9.5 10^3/ul (3.5-10.8)
[2018-04-24] MEDS ORDERED: LORazepam INJ* 2 MG/ML 1 ML VIAL IV PUSH ONE (04:47)
[2018-04-24] MEDS ORDERED: LORazepam INJ* 2 MG/ML 1 ML VIAL ONE (04:50)
[2018-04-24] MEDS: Valproic Acid IV(*) 500 MG in NS 0.9% 100 ML* 100 ML IVPB SCH ×3 (04:53→23:35)
[2018-04-24 04:54] LABS: EGFR Non-African American 91.6 (>60)
[2018-04-24] MEDS: Heparin VIAL(*) 5000 UNITS/ML VIAL (FIVE THOUSAND) SUBCUT SCH ×3 (04:59→20:30)
--- NOTE | 2018-04-24 07:56 | RAD ---
INDICATION: Tachypnea COMPARISON: A 2017 TECHNIQUE: An AP portable view obtained at 0403 hours is submitted. FINDINGS: Bones/Soft Tissues: There are no acute bony findings. Cardiomediastinal: The cardiomediastinal silhouette is normal. Lungs: There is mild interstitial prominence. This may reflect chronic change. There are small bibasilar opacities with mild improvement on the left and mild worsening on the right. Pleura: There are no significant effusions. Other: None IMPRESSION: SMALL BIBASILAR OPACITIES WITH MILD IMPROVEMENT ON THE LEFT AND MILD WORSENING ON THE RIGHT
--- NOTE | 2018-04-24 08:44 | PN ---
Subjective Date of Service: 04/24/18 Interval History: Patient was seen and examined at bedside. Events noted from last night. Periods of increased lethargy, tachypnea and decreased O2 saturation. Better this AM with Vapotherm at 40L/min. Appears comfortable in bed, responding to simple questions, but drowsy most of the time. Also marked improvement with delirium tremens compared to last evening on admission. Denies chest pain. Labs and CXR reviewed, breathing improved after a dose of Lasix last night. Valproic acid added to Lorazepam as noted. No new issues this morning, seems improving overall. Family History: Unchanged from Admission Social History: Unchanged from Admission Past Medical History: Unchanged from Admission Objective Active Medications: Abacavir/Dolutegravir/Lamivudine (Triumeq Tablet (Nf)) 1 tab PO DAILY [facility] Acetaminophen (Tylenol Tab*) 650 mg PO Q4H PRN PRN Reason: FEVER/PAIN Al Hydrox/Mg Hydrox/Simethicone (Maalox Plus*) 30 ml PO Q6H PRN PRN Reason: INDIGESTION Albuterol (Ventolin 2.5 Mg/3 Ml Neb.Flor*) 2.5 mg INH [id number] AWAKE PRN PRN Reason: sob/wheezing Bupropion HCl (Bupropion Xl*) 300 mg PO DAILY [facility] Carbidopa/Levodopa (Sinemet 25/100 Tab(*)) 1 tab PO DAILY [facility] Finasteride (Proscar Tab*) 5 mg PO DAILY [facility] Folic Acid (Folvite Tab*) 1 mg PO DAILY [facility] Gabapentin (Neurontin Cap(*)) 300 mg PO BID [facility] Last Admin: 04/23/18 20:21 Dose: Not Given Heparin Sodium (Porcine) (Heparin Vial(*)) 5,000 units SUBCUT Q8HR [facility] Last Admin: 04/24/18 04:59 Dose: 5,000 units Ceftriaxone Sodium 1 gm/ (Sodium Chloride) 50 mls @ 200 mls/hr IVPB Q24H JOHN Last Admin: 04/23/18 21:10 Dose: 200 mls/hr Azithromycin 500 mg/ Sodium (Chloride) 250 mls @ 250 mls/hr IVPB Q24H [facility] Last Admin: 04/23/18 20:06 Dose: 250 mls/hr Valproic Acid 500 mg/ Sodium (Chloride) 105 mls @ 210 mls/hr IVPB Q8H [facility] Last Admin: 04/24/18 04:53 Dose: 210 mls/hr Lorazepam (Ativan Tab(*)) 0 - 6 mg PO .[facility] PROTOCOL [facility]; Protocol Metoprolol Tartrate (Lopressor Iv*) 5 mg IV Q6H PRN PRN Reason: BLOOD PRESSURE Montelukast Sodium (Singulair Tab*) 10 mg PO 2100 [facility] Last Admin: 04/23/18 20:21 Dose: Not Given Multivitamins/Minerals (Theragran/Minerals Tab*) 1 tab PO DAILY [facility] Nystatin (Nystatin Top Powder*) 1 applic TOPICAL BID [facility] Ondansetron HCl (Zofran Inj*) 4 mg IV Q4H PRN PRN Reason: NAUSEA/VOMITING Oxycodone/Acetaminophen (Percocet 5/325 Tab*) 1 tab PO Q6H PRN PRN Reason: PAIN Thiamine HCl (Vitamin B-1 Tab*) 100 mg PO DAILY [facility] Vital Signs - 8 hr 04/24/18 04/24/18 04/24/18 01:00 01:30 02:00 Temperature Pulse Rate 123 121 127 Respiratory 28 31 30 Rate Blood Pressure 128/82 140/93 139/105 (mmHg) O2 Sat by Pulse 94 97 93 Oximetry 04/24/18 04/24/18 04/24/18 02:30 03:00 03:01 Temperature Pulse Rate 125 106 119 Respiratory 32 28 32 Rate Blood Pressure 149/104 151/98 (mmHg) O2 Sat by Pulse 89 93 94 Oximetry 04/24/18 04/24/18 04/24/18 03:21 03:30 04:00 Temperature 100.0 F Pulse Rate 118 123 Respiratory 35 30 Rate Blood Pressure 151/93 162/99 (mmHg) O2 Sat by Pulse 89 99 Oximetry 04/24/18 04/24/18 04/24/18 04:30 04:54 05:00 Temperature Pulse Rate 128 125 Respiratory 37 34 33 Rate Blood Pressure 171/107 159/104 (mmHg) O2 Sat by Pulse 89 96 Oximetry 04/24/18 04/24/18 04/24/18 05:30 06:00 06:30 Temperature Pulse Rate 124 122 120 Respiratory 33 31 29 Rate Blood Pressure 170/94 155/97 176/93 (mmHg) O2 Sat by Pulse 100 100 100 Oximetry 08/04/24/18 04/24/18 07:00 07:30 08:00 Temperature 98.1 F Pulse Rate 108 125 123 Respiratory 29 31 30 Rate Blood Pressure 173/100 143/100 (mmHg) O2 Sat by Pulse 100 98 99 Oximetry 04/24/18 04/24/18 08:01 08:30 Temperature Pulse Rate 121 126 Respiratory 31 34 Rate Blood Pressure 142/110 144/96 (mmHg) O2 Sat by Pulse 99 90 Oximetry Oxygen Devices in Use Now: High Flow Heated Nasal Cannula Appearance: Comfortable in bed, relaxed and cooperative, in NAD Eyes: No Scleral Icterus, PERRLA Ears/Nose/Mouth/Throat: Clear Oropharnyx, Mucous Membranes Moist Neck: Trachea Midline Respiratory: Symmetrical Chest Expansion and Respiratory Effort, - - Residual bibasilar crackels and rales, no wheezes. Cardiovascular: NL Sounds; No Murmurs; No JVD, - - Rapid rate, seems regular Abdominal: NL Sounds; No Tenderness; No Distention Extremities: No Edema Neurological: - - Alert to self and place. No muscle twitches noted. Lines/Tubes/Other Access: Clean, Dry and Intact Peripheral IV Result Diagrams: 04/24/18 04:30 04/24/18 04:30 Additional Lab and Data: Lab Results 04/23/18 04/23/18 Range/Units 15:12 15:12 Sodium 138 (135-145) mmol/L Potassium 3.5 (3.5-5.0) mmol/L Chloride 98 L (101-111) mmol/L Carbon Dioxide 23 (22-32) mmol/L Anion Gap 17 H (2-11) mmol/L BUN 26 H (6-24) mg/dL Creatinine 0.90 (0.67-1.17) mg/dL Est GFR ( Amer) 103.8 (>60) Est GFR (Non-Af Amer) 85.8 (>60) BUN/Creatinine Ratio 28.9 H (8-20) Glucose 112 H (70-100) mg/dL Calcium 9.9 (8.6-10.3) mg/dL Magnesium 2.4 (1.9-2.7) mg/dL Total Bilirubin 1.60 H (0.2-1.0) mg/dL AST 49 H (13-39) U/L ALT 39 (7-52) U/L Alkaline Phosphatase 65 (34-104) U/L Troponin I 0.03 (<0.04) ng/mL B-Natriuretic Peptide 139 H ( - 100) pg/mL Total Protein 7.5 (6.4-8.9) g/dL Albumin 4.0 (3.2-5.2) g/dL Globulin 3.5 (2-4) g/dL Albumin/Globulin Ratio 1.1 (1-3) Lipase 162 H (11.0-82.0) U/L TSH Pending Serum Alcohol Pending Microbiology and Other Data: Microbiology 04/23/18 18:30 Nasal Screen MRSA (PCR) - Final Nasal Mrsa Not Detected Diagnostic Imaging: Patient Name: BROWN SAMUEL Medical Record#: [id number] Ordering Physician: Medina Alvarez DO Acct.#: [id number] : 1955 Age: 62 Sex: M Location: [facility] Exam Date: 04/24/18 033 ADM Status: ADM IN Order Information: CHEST AP PORTABLE Accession Number: [id number] CPT: 17930 INDICATION: Tachypnea IMPRESSION: SMALL BIBASILAR OPACITIES WITH MILD IMPROVEMENT ON THE LEFT AND MILD WORSENING ON THE RIGHT <Electronically signed by Prince Martinez MD in OV> 04/24/18 0753 EKG Data: . Assess/Plan/Problems-Billing Assessment: A 62 y/o male with PMHx HTN, A-fib, seizure disorder and HIV, on antiretroviral therapy, who was brought to ED yesterday with active ETOH withdrawal symptoms, admitted with acute respiratory failure and treatment of delirium tremens, as well as CAP. - Patient Problems (1) Acute hyperactive alcohol withdrawal delirium Current Visit: Yes Status: Acute Comment: - Appeears to improve clinically - Continue WAM protocol with Ativan coverage (2) Acute respiratory failure with hypoxia Current Visit: Yes Status: Acute Comment: - Improved with Vapotherm with 40L/min, will wean off as tolerated (3) Aspiration pneumonia of right lower lobe Current Visit: Yes Status: Acute Comment: - Contiune Ceftriaxone and Azithromycin - Suspect aspiration (4) Alcohol abuse Current Visit: Yes Status: Acute Comment: - client services administrator consult to discuss rehab plans upon discharge - Hx alcohol abuse for a long time, attempted rehab 20 yrs ago, but relapsed (5) Seizure Current Visit: Yes Status: Acute Comment: - Continue Valproic acid (6) Hx of human immunodeficiency virus infection Current Visit: Yes Status: Acute Comment: - Continue HARRT therapy (7) DVT prophylaxis Current Visit: Yes Status: Acute Comment: - SubQ Heparin (8) Full code status Current Visit: Yes Status: Acute Status and Disposition: Inpatient. Anticipate discharge to home when medically stable.
[2018-04-24] MEDS ORDERED: Carbidopa/Levodop 25/100 MG TAB(*) PO SCH (09:00)
[2018-04-24] MEDS ORDERED: Divalproex DR TAB(*) 500 MG PO SCH (09:00)
[2018-04-24] MEDS ORDERED: Metoprolol Succinate XL TAB* 100 MG PO SCH (09:00)
[2018-04-24] MEDS: Metoprolol Tartrate IV* 1 MG/ML 5 ML VIAL IV PRN ×2 (09:50→20:28)
[2018-04-24] MEDS: DOLUTEGRAVIR PO SCH (09:53)
[2018-04-24] MEDS: ABACAVIR PO SCH (09:53)
[2018-04-24] MEDS: LAMIVUDI PO SCH (09:53)
[2018-04-24] MEDS: Finasteride TAB* 5 MG PO SCH (09:54)
[2018-04-24] MEDS: Gabapentin CAP(*) 300 MG PO SCH ×2 (09:54→19:37)
[2018-04-24] MEDS: Folic Acid TAB* 1 MG PO SCH (09:54)
[2018-04-24] MEDS: BuPROPion XL* 300 MG TAB.XL PO SCH (09:54)
[2018-04-24] MEDS: Thiamine TAB* 100 MG TAB PO SCH (09:54)
[2018-04-24] MEDS: Multivitamins/Minerals TAB PO SCH (09:54)
[2018-04-24] MEDS ORDERED: Albuterol/Ipratropium NEB.SOL* Albuterol 2.5 MG/Ipratropium 0.5 MG 3 ML INH PRN (11:34)
--- NOTE | 2018-04-24 11:43 | CONSULT ---
Consult Consult: Consultation Note -- Critical Care Requesting Physician: Dr Vanesa Stephens Reason for consult: alcohol withdrawal, hypoxia Limitations in history/physical: delirium Date of consult: 04/24/2018 HPI: 62y M pmhx of alcohol abuse, HTN, HIV on HAART, h/o Afib, Seizure disorder ; noted to have been taken off parkinsons meds by neurology, thought not to have parkinsons; comes to ER via EMS due to multiple falls and weakness for days now. Poor history on arrival as per documentation. He was found at home on the floor, not making sense, confused. He stated to staff he drinks 12oz of alcohol a day and has tried stopping recently but did have some the morning of admission. On Arrival CT brain was negative except for a scalp hematoma, CT neck was negative. There is a possible small left infiltrate on admission. He was thought to be in an alcohol withdrawal state and started on protocol. Overnight, some resp distress, on arrival to ICU had upper airway secretions, not clearing, was NT suctioned. Overnight more distress, placed on hiflow. This morning, awakens, able to answer simple questions but sleepy, not agitated or restless much. In bed, comfortable appearing. No sig cough or resp distress. Afebrile, BP stable, mild tachycardia. CXRwith new right lower lobe infiltrate+ ROS: limited ROS due to change in mental status/delirium PMHx: alcohol abuse, HTN, HIV on HAART, h/o Afib, Seizure disorder; ruled out for parkinsons disorder recently as per PCP. PSHx: left wrist fracture s/p repair. Family History: unable to obtain, lives with significant other/friend Social History: Alcohol-12ox vodka/wine daily, Smoking-nonsmoker but uses marijuana, Drug use Allergies: Allergies Allergy/AdvReac Type Severity Reaction Status Date / Time latex Allergy Hives Verified 04/23/18 14:31 Seasonal Allergy Congestion Uncoded 04/23/18 14:31 Home Medications: Metoprolol Succinate XL TAB* [Toprol XL TAB*] 50 mg PO DAILY 03/30/13 [History Confirmed 01/23/18] Finasteride TAB* [Proscar TAB*] 5 mg PO DAILY 05/27/13 [History Confirmed ] Montelukast Sodium TAB* [Singulair TAB*] 10 mg PO DAILY 05/27/13 [History Confirmed 01/23/18] Divalproex DR TAB(*) [Abdirahman NOLASCO(*)] 500 mg PO QAM 05/28/13 [History Confirmed 01/23/18] Abacavir/Dolutegravir/Lamivudi [Triumeq 600-50-300 mg] 1 tab PO DAILY 01/23/18 [ History Confirmed 01/23/18] BuPROPion XL* [Bupropion XL*] 300 mg PO DAILY 01/23/18 [History Confirmed ] Carbidopa/Levodop 25/100 MG(*) [Sinemet 25/100 TAB(*)] 1 tab PO DAILY 01/23/18 [ History Confirmed 01/23/18] Divalproex DR TAB(*) [Abdirahman NOLASCO(*)] 1,000 mg PO QPM 01/23/18 [History Confirmed 01/23/18] Gabapentin CAP(*) [Neurontin 300 CAP(*)] 300 mg PO BID 01/23/18 [History Confirmed 01/23/18] oxyCODONE/Acetamin 5/325 MG* [Percocet 5/325 TAB*] 1 tab PO Q6H PRN #12 tab MDD 4 tablets 01/23/18 [Rx] Tele: sinus tachy Vitals: Vital Signs Temp 98.1 F 04/24/18 08:00 Pulse 103 04/24/18 11:00 Resp 31 04/24/18 11:00 BP 127/91 04/24/18 11:00 Pulse Ox 99 04/24/18 11:00 Intake & Output 04/23/18 04/24/18 04/24/18 18:59 06:59 18:59 Intake Total 1000 2526 Output Total 1275 640 Balance 1000 1251 -640 Weight 79.379 kg 79 kg Intake: IV Fluids 1000 1985 NS (0.9%) 876 IVPB 540 ABX - AZITHROMYCIN 265 ABX - CEFTRIAXONE 55 Valproic acid 220 Oral 0 Output: Urine 525 Jeffries 750 640 Other: Estimated Void Medium O2/Vent: hiflow 100% 40lpm Infusions: heplock Current Medications: Abacavir/Dolutegravir/Lamivudine (Triumeq Tablet (Nf)) 1 tab PO DAILY [facility] Last Admin: 04/24/18 09:53 Dose: Not Given Acetaminophen (Tylenol Tab*) 650 mg PO Q4H PRN PRN Reason: FEVER/PAIN Al Hydrox/Mg Hydrox/Simethicone (Maalox Plus*) 30 ml PO Q6H PRN PRN Reason: INDIGESTION Albuterol (Ventolin 2.5 Mg/3 Ml Neb.Flor*) 2.5 mg INH [id number] AWAKE PRN PRN Reason: sob/wheezing Albuterol/Ipratropium (Duoneb (Albuterol 2.5 Mg/Ipratropium 0.5 Mg)) 1 neb INH Q4H PRN PRN Reason: SOB/WHEEZING Bupropion HCl (Bupropion Xl*) 300 mg PO DAILY [facility] Last Admin: 04/24/18 09:54 Dose: Not Given Finasteride (Proscar Tab*) 5 mg PO DAILY [facility] Last Admin: 04/24/18 09:54 Dose: Not Given Folic Acid (Folvite Tab*) 1 mg PO DAILY [facility] Last Admin: 04/24/18 09:54 Dose: Not Given Gabapentin (Neurontin Cap(*)) 300 mg PO BID [facility] Last Admin: 04/24/18 09:54 Dose: Not Given Heparin Sodium (Porcine) (Heparin Vial(*)) 5,000 units SUBCUT Q8HR [facility] Last Admin: 04/24/18 04:59 Dose: 5,000 units Ceftriaxone Sodium 1 gm/ (Sodium Chloride) 50 mls @ 200 mls/hr IVPB Q24H [facility] Last Admin: 04/23/18 21:10 Dose: 200 mls/hr Azithromycin 500 mg/ Sodium (Chloride) 250 mls @ 250 mls/hr IVPB Q24H [facility] Last Admin: 04/23/18 20:06 Dose: 250 mls/hr Valproic Acid 500 mg/ Sodium (Chloride) 105 mls @ 210 mls/hr IVPB Q8H [facility] Last Admin: 04/24/18 04:53 Dose: 210 mls/hr Famotidine 20 mg/ Sodium (Chloride) 102 mls @ 408 mls/hr IVPB DAILY [facility] Lactated Ringer's (Lactated Ringers 1000 Ml Bag*) 1,000 mls @ 75 mls/hr IV PER RATE [facility] Lorazepam (Ativan Inj*) 1 mg IV PUSH Q2H PRN PRN Reason: withdrawal/agitation Metoprolol Tartrate (Lopressor Iv*) 5 mg IV Q6H PRN PRN Reason: BLOOD PRESSURE Last Admin: 04/24/18 09:50 Dose: 5 mg Montelukast Sodium (Singulair Tab*) 10 mg PO 2100 [facility] Last Admin: 04/23/18 20:21 Dose: Not Given Multivitamins/Minerals (Theragran/Minerals Tab*) 1 tab PO DAILY [facility] Last Admin: 04/24/18 09:54 Dose: Not Given Nystatin (Nystatin Top Powder*) 1 applic TOPICAL BID [facility] Ondansetron HCl (Zofran Inj*) 4 mg IV Q4H PRN PRN Reason: NAUSEA/VOMITING Oxycodone/Acetaminophen (Percocet 5/325 Tab*) 1 tab PO Q6H PRN PRN Reason: PAIN Thiamine HCl (Vitamin B-1 Tab*) 100 mg PO DAILY [facility] Last Admin: 04/24/18 09:54 Dose: Not Given Physical Exam: General: awakens with stimuli, not very alert, can answer simple questions at times, no distress, no diaphoresis Head: normocephalic, atraumatic HEENT: no pallor, no icterus, dry mucous membranes Neck: soft, supple, no jvd, no stridor CVS: tachycardic, regular, no murmur Resp: bilateral air entry, no rhales, no wheeze, no rhonchi, no acc muscle use Abdomen: soft, nontender, nondistended, bowel sounds present Ext: pulses+, warm, no edema Skin: intact Neuro: arousable, not alert, oriented x2, pupils reactive, moving all extremities, no gross focal deficit Labs: Laboratory Results - last 24 hr 04/23/18 04/23/18 04/23/18 15:12 15:12 15:12 WBC 9.1 RBC 4.58 Hgb 16.9 Hct 49 MCV 106 H MCH 37 H MCHC 35 RDW 14 Plt Count 158 MPV 8.2 Neut % (Auto) 78.8 Lymph % (Auto) 8.0 L [place] % (Auto) 13.1 H Eos % (Auto) 0 Baso % (Auto) 0.1 Absolute Neuts (auto) 7.2 Absolute Lymphs (auto) 0.7 L Absolute Monos (auto) 1.2 H Absolute Eos (auto) 0 Absolute Basos (auto) 0 Absolute Nucleated RBC 0 Nucleated RBC % 0.1 Macrocytosis 2+ Patient Temperature ABG pH ABG pH (Temp Correct) ABG pCO2 ABG pCO2 (Temp Corrct ABG pO2 ABG pO2 (Temp Correct ABG HCO3 ABG O2 Saturation ABG Base Excess Respiration Rate O2 Delivery Device Ventilator Type Vent Mode FiO2 Inspiratory Time PEEP Pressure Support Pressure Control EPAP IPAP BiPAP Sodium 138 Potassium 3.5 Chloride 98 L Carbon Dioxide 23 Anion Gap 17 H BUN 26 H Creatinine 0.90 Est GFR ( Amer) 103.8 Est GFR (Non-Af Amer) 85.8 BUN/Creatinine Ratio 28.9 H Glucose 112 H Calcium 9.9 Magnesium 2.4 Total Bilirubin 1.60 H AST 49 H ALT 39 Alkaline Phosphatase 65 Ammonia Total Creatine Kinase 1422 H Troponin I 0.03 B-Natriuretic Peptide 139 H Total Protein 7.5 Albumin 4.0 Globulin 3.5 Albumin/Globulin Ratio 1.1 Lipase 162 H TSH 0.60 Urine Color Urine Appearance Urine pH Ur Specific [place] Urine Protein Urine Ketones Urine Blood Urine Nitrate Urine Bilirubin Urine Urobilinogen Ur Leukocyte Esterase Urine WBC (Auto) Urine RBC (Auto) Urine Bacteria Urine Glucose Urine Ascorbic Acid Urine Opiates Screen Ur Barbiturates Screen Ur Phencyclidine Scrn Ur Amphetamines Screen U Benzodiazepines Scrn Urine Cocaine Screen U Cannabinoids Screen Serum Alcohol < 10 04/23/18 04/24/18 04/24/18 20:35 00:15 00:15 WBC RBC Hgb Hct MCV MCH MCHC RDW Plt Count MPV Neut % (Auto) Lymph % (Auto) [place] % (Auto) Eos % (Auto) Baso % (Auto) Absolute Neuts (auto) Absolute Lymphs (auto) Absolute Monos (auto) Absolute Eos (auto) Absolute Basos (auto) Absolute Nucleated RBC Nucleated RBC % Macrocytosis Patient Temperature Not Reportable ABG pH 7.46 H ABG pH (Temp Correct) Not Reportable ABG pCO2 31 L ABG pCO2 (Temp Corrct Not Reportable ABG pO2 66 L ABG pO2 (Temp Correct Not Reportable ABG HCO3 24.2 ABG O2 Saturation 96.0 ABG Base Excess -0.8 Respiration Rate Not Reportable O2 Delivery Device oxymask Ventilator Type Not Reportable Vent Mode Not Reportable FiO2 Not Reportable Inspiratory Time Not Reportable PEEP Not Reportable Pressure Support Not Reportable Pressure Control Not Reportable EPAP Not Reportable IPAP Not Reportable BiPAP Not Reportable Sodium Potassium Chloride Carbon Dioxide Anion Gap BUN Creatinine Est GFR ( Amer) Est GFR (Non-Af Amer) BUN/Creatinine Ratio Glucose Calcium Magnesium Total Bilirubin AST ALT Alkaline Phosphatase Ammonia Total Creatine Kinase Troponin I B-Natriuretic Peptide Total Protein Albumin Globulin Albumin/Globulin Ratio Lipase TSH Urine Color Yellow Urine Appearance Cloudy Urine pH 5 Ur Specific [place] 1.025 Urine Protein 1+(30 mg/dl) A Urine Ketones 3+ A Urine Blood N Urine Nitrate N Urine Bilirubin Negative Urine Urobilinogen Negative Ur Leukocyte Esterase Negative Urine WBC (Auto) Trace(0-5/hpf) Urine RBC (Auto) 1+(3-5/hpf) A Urine Bacteria Absent Urine Glucose 1+(50 mg/dl) A Urine Ascorbic Acid Not Reportable Urine Opiates Screen None detected Ur Barbiturates Screen None detected Ur Phencyclidine Scrn None detected Ur Amphetamines Screen Presumptive positive A U Benzodiazepines Scrn Presumptive positive A Urine Cocaine Screen None detected U Cannabinoids Screen None detected Serum Alcohol 04/24/18 04/24/18 04/24/18 04:30 04:30 04:30 WBC 9.5 RBC 4.12 Hgb 15.5 Hct 44 MCV 106 H MCH 38 H MCHC 35 RDW 14 Plt Count 145 L MPV 7.4 Neut % (Auto) 74.1 Lymph % (Auto) 10.8 L [place] % (Auto) 14.9 H Eos % (Auto) 0 Baso % (Auto) 0.2 Absolute Neuts (auto) 7.0 Absolute Lymphs (auto) 1.0 Absolute Monos (auto) 1.4 H Absolute Eos (auto) 0 Absolute Basos (auto) 0 Absolute Nucleated RBC 0 Nucleated RBC % 0 Macrocytosis Patient Temperature ABG pH ABG pH (Temp Correct) ABG pCO2 ABG pCO2 (Temp Corrct ABG pO2 ABG pO2 (Temp Correct ABG HCO3 ABG O2 Saturation ABG Base Excess Respiration Rate O2 Delivery Device Ventilator Type Vent Mode FiO2 Inspiratory Time PEEP Pressure Support Pressure Control EPAP IPAP BiPAP Sodium 140 Potassium 3.2 L Chloride 105 Carbon Dioxide 23 Anion Gap 12 H BUN 15 Creatinine 0.85 Est GFR ( Amer) 110.9 Est GFR (Non-Af Amer) 91.6 BUN/Creatinine Ratio 17.6 Glucose 111 H Calcium 8.8 Magnesium Total Bilirubin 1.30 H AST 35 ALT 33 Alkaline Phosphatase 56 Ammonia 54 H Total Creatine Kinase Troponin I B-Natriuretic Peptide Total Protein 6.9 Albumin 3.6 Globulin 3.3 Albumin/Globulin Ratio 1.1 Lipase TSH Urine Color Urine Appearance Urine pH Ur Specific [place] Urine Protein Urine Ketones Urine Blood Urine Nitrate Urine Bilirubin Urine Urobilinogen Ur Leukocyte Esterase Urine WBC (Auto) Urine RBC (Auto) Urine Bacteria Urine Glucose Urine Ascorbic Acid Urine Opiates Screen Ur Barbiturates Screen Ur Phencyclidine Scrn Ur Amphetamines Screen U Benzodiazepines Scrn Urine Cocaine Screen U Cannabinoids Screen Serum Alcohol Imaging: ct brain 04/23 no acute changes; small right frontal scalp hematoma cxr 04/23 small left infiltrate cxr 04/24 improved left small infiltrate, new right basal infiltrate+ Assessment: 62y M pmhx of alcohol abuse, HTN, HIV on HAART, h/o Afib, Seizure disorder; noted to have been taken off parkinsons meds by neurology, thought not to have parkinsons; comes to ER via EMS due to multiple falls and weakness for days now. Poor history on arrival as per documentation. He was found at home on the floor, not making sense, confused. He stated to staff he drinks 12oz of alcohol a day and has tried stopping recently but did have some the morning of admission. On Arrival CT brain was negative except for a scalp hematoma, CT neck was negative. There is a possible small left infiltrate on admission. He was thought to be in an alcohol withdrawal state and started on protocol. Overnight resp distress, started on hiflow, CXR with RLL infiltrate. -Delirium, suspect acute alcohol withdrawal state -acute hypoxic respiratory failure -Right lower lobe aspiration pneumonia -s/p fall with scalp hematoma HIV Alcohol abuse history Seizure disorder h/o Afib Plan: Neuro- -suspect alcohol withdrawal, not very agitated, arousable and can answer some simple questions. Keep Ativan IV q1h PRN. Folic acid/thiamine/mvi. -seizure disorder; cont valproic acid -mildy elevated ammonia, possible due to underlying chronic liver disease; holding on lactulose for now; check ammonia tomorrow -asp prec, fall prec CVS- BP stable, tachycardic. IV metoprolol q6h. IVF LR 75cc/hr. monitor urine output. Resp- on hiflow 100% 40lpm now. Wean down to NC. CXR with new RLL infiltrate; suspect aspiration event. No active distress now. Bronchodilators q4h prn. IV abx ceftriaxone/azithro. Asp prec. ID- afebrile. Wbc normal. CXR with new RLL infiltrate, suspect aspiration given poor mental status yesterday. Cont ceftriaxone 1gm daily (day#2), azithromycin ( day#2) -cont HAART therapy; abacavir/dolutegravir/lamivudine GI- NPO for now; sips of water while being watched. Asp prec. GI proph Renal- Cr okay. LR infusion 75cc/hr. monitor urine output. No jeffries. Heme- hg stable. Plt okay. Cont folic acid. Endo- fingerstick prn Musculsk- pressure ulcer prophylaxis. Bedrest. Wounds- barely noticeable scalp hematoma; none Nutrition- NPO, start PO as tolerated based on mental status. DVT prophylaxis: heparin sq, scds GI prophylaxis: pepcid Central Line: no Arterial Line: no Jeffries Cathetor: no Disposition: ICU Code Status: full code Total Critical Care time is 35 minutes, excluding procedures/teaching Wild Valverde MD Log Sawyer (Electronically Signed)
[2018-04-24] MEDS: LORazepam INJ* 2 MG/ML 1 ML VIAL IV PUSH PRN (12:34)
[2018-04-24] MEDS: Nystatin TOP POWDER* 15 GM BTL TOPICAL SCH ×2 (12:37→20:32)
[2018-04-24] MEDS: cefTRIAXone(*) 1 GM in NS 0.9% 50 ML* 50 ML IVPB SCH (18:17)
[2018-04-24] MEDS: Azithromycin IV(*) 500 MG in NS 0.9% 250 ML* 250 ML IVPB SCH (18:17)
[2018-04-24] MEDS: Montelukast Sodium TAB* 10 MG PO SCH (20:33)
[2018-04-25 05:38] LABS: Hematocrit 39 % (42-52); Hemoglobin 13.5 g/dl (14.0-18.0); Mean Corpuscular HGB Conc 35 g/dl (31-36); Mean Corpuscular Hemoglobin 37 pg (27-31); Mean Corpuscular Volume 105 fL (80-94); Mean Platelet Volume 7.6 um3 (7.4-10.4); Platelet Count 139 10^3/ul (150-450); Red Blood Count 3.66 10^6/ul (4.00-5.40); Red Cell Distribution Width 14 % (10.5-15); White Blood Count 11.6 10^3/ul (3.5-10.8)
[2018-04-25] MEDS: Heparin VIAL(*) 5000 UNITS/ML VIAL (FIVE THOUSAND) SUBCUT SCH ×2 (05:50→14:45)
[2018-04-25 05:59] LABS: EGFR Non-African American 94.2 (>60)
[2018-04-25] MEDS: Valproic Acid IV(*) 500 MG in NS 0.9% 100 ML* 100 ML IVPB SCH ×3 (07:48→23:42)
[2018-04-25] MEDS: Multivitamins/Minerals TAB PO SCH (07:52)
[2018-04-25] MEDS: Thiamine TAB* 100 MG TAB PO SCH (07:52)
[2018-04-25] MEDS: Finasteride TAB* 5 MG PO SCH (07:52)
[2018-04-25] MEDS: BuPROPion XL* 300 MG TAB.XL PO SCH (07:52)
[2018-04-25] MEDS: Folic Acid TAB* 1 MG PO SCH (07:53)
[2018-04-25] MEDS: Gabapentin CAP(*) 300 MG PO SCH ×2 (07:53→20:25)
[2018-04-25] MEDS: Nystatin TOP POWDER* 15 GM BTL TOPICAL SCH ×2 (07:53→20:25)
[2018-04-25] MEDS ORDERED: Famotidine IV * 20 MG in NS 0.9% 100 ML* 100 ML IVPB SCH (09:00)
[2018-04-25] MEDS ORDERED: Famotidine IV* 10 MG/ML 2 ML (20 mg) SLOW PUSH SCH (09:00)
--- NOTE | 2018-04-25 09:35 | PN ---
Progress Note - Progress Note Date of Service: 04/25/18 Note: Consultation Note -- Critical Care 24 hour events: -awake, alert, answering questions, doesnt remember what happened at home -no resp distress; states mild sputum production, mild cough+ -no n/v/cp/sob -afebrile, tmax 99.9 -on hiflow 70% 30lpm Tele: nsr Vitals: Vital Signs Temp 98.7 F 04/25/18 08:00 Pulse 102 04/25/18 08:00 Resp 25 04/25/18 08:00 BP 117/79 04/25/18 08:00 Pulse Ox 93 04/25/18 08:00 Intake & Output 04/24/18 04/25/18 04/25/18 18:59 06:59 18:59 Intake Total 56 1364 Output Total 950 380 100 Balance -894 984 -100 Weight 77.8 kg Intake: IV Fluids 49 1364 LR 1364 NS (0.9%) 49 IVPB 7 Valproic acid 7 Oral 0 Output: Urine 110 Jeffries 950 270 100 O2/Vent: hiflow 70% 30lpm Infusions: LR 75 Current Medications: Abacavir/Dolutegravir/Lamivudine (Triumeq Tablet (Nf)) 1 tab PO DAILY [facility] Last Admin: 04/24/18 09:53 Dose: Not Given Acetaminophen (Tylenol Tab*) 650 mg PO Q4H PRN PRN Reason: FEVER/PAIN Al Hydrox/Mg Hydrox/Simethicone (Maalox Plus*) 30 ml PO Q6H PRN PRN Reason: INDIGESTION Albuterol (Ventolin 2.5 Mg/3 Ml Neb.Flor*) 2.5 mg INH [id number] AWAKE PRN PRN Reason: sob/wheezing Albuterol/Ipratropium (Duoneb (Albuterol 2.5 Mg/Ipratropium 0.5 Mg)) 1 neb INH Q4H PRN PRN Reason: SOB/WHEEZING Bupropion HCl (Bupropion Xl*) 300 mg PO DAILY [facility] Last Admin: 04/25/18 07:52 Dose: 300 mg Famotidine (Pepcid Iv*) 20 mg SLOW PUSH DAILY [facility] Last Admin: 04/25/18 07:52 Dose: 20 mg Finasteride (Proscar Tab*) 5 mg PO DAILY [facility] Last Admin: 04/25/18 07:52 Dose: 5 mg Folic Acid (Folvite Tab*) 1 mg PO DAILY [facility] Last Admin: 04/25/18 07:53 Dose: 1 mg Gabapentin (Neurontin Cap(*)) 300 mg PO BID [facility] Last Admin: 04/25/18 07:53 Dose: 300 mg Heparin Sodium (Porcine) (Heparin Vial(*)) 5,000 units SUBCUT Q8HR [facility] Last Admin: 04/25/18 05:50 Dose: 5,000 units Ceftriaxone Sodium 1 gm/ (Sodium Chloride) 50 mls @ 200 mls/hr IVPB Q24H [facility] Last Admin: 04/24/18 18:17 Dose: 200 mls/hr Azithromycin 500 mg/ Sodium (Chloride) 250 mls @ 250 mls/hr IVPB Q24H [facility] Last Admin: 04/24/18 18:17 Dose: 250 mls/hr Lactated Ringer's (Lactated Ringers 1000 Ml Bag*) 1,000 mls @ 75 mls/hr IV PER RATE [facility] Last Admin: 04/25/18 05:50 Dose: 75 mls/hr Valproic Acid 500 mg/ Sodium (Chloride) 105 mls @ 210 mls/hr IVPB Q8H [facility] Last Admin: 04/25/18 07:48 Dose: 210 mls/hr Potassium Chloride (Potassium Chloride 20 Meq/100 Ml Ivpremix*) 20 meq in 100 mls @ 50 mls/hr IV Q2H [facility] Stop: 04/25/18 14:59 Lorazepam (Ativan Inj*) 1 mg IV PUSH Q2H PRN PRN Reason: withdrawal/agitation Last Admin: 04/24/18 12:34 Dose: 1 mg Metoprolol Tartrate (Lopressor Iv*) 5 mg IV Q6H PRN PRN Reason: BLOOD PRESSURE Last Admin: 04/24/18 20:28 Dose: 5 mg Montelukast Sodium (Singulair Tab*) 10 mg PO 2100 [facility] Last Admin: 04/24/18 20:33 Dose: 10 mg Multivitamins/Minerals (Theragran/Minerals Tab*) 1 tab PO DAILY [facility] Last Admin: 04/25/18 07:52 Dose: 1 tab Nystatin (Nystatin Top Powder*) 1 applic TOPICAL BID [facility] Last Admin: 04/25/18 07:53 Dose: 1 applic Ondansetron HCl (Zofran Inj*) 4 mg IV Q4H PRN PRN Reason: NAUSEA/VOMITING Last Admin: 04/24/18 20:48 Dose: 4 mg Oxycodone/Acetaminophen (Percocet 5/325 Tab*) 1 tab PO Q6H PRN PRN Reason: PAIN Potassium Chloride (Klor Con Er Tab*) 40 meq PO BID [facility] Thiamine HCl (Vitamin B-1 Tab*) 100 mg PO DAILY [facility] Last Admin: 04/25/18 07:52 Dose: 100 mg Physical Exam: General: awake, alert, no distress, not diaphoretic Head: normocephalic, atraumatic HEENT: no pallor, no icterus, moist mucous membranes Neck: soft, supple, no jvd, no stridor CVS: normal rate, regular, no murmur Resp: bilateral air entry, no rhales, no wheeze, no rhonchi, no acc muscle use Abdomen: soft, nontender, nondistended, bowel sounds present Ext: pulses+, warm, no edema Skin: intact Neuro: awake, alert, oriented x3, moves all ext, no focal deficit; a little confused Labs: Laboratory Results - last 24 hr 04/25/18 04/25/18 04/25/18 05:23 05:23 05:32 WBC 11.6 H RBC 3.66 L Hgb 13.5 L Hct 39 L MCV 105 H MCH 37 H MCHC 35 RDW 14 Plt Count 139 L MPV 7.6 Sodium 143 Potassium 2.8 L Chloride 107 Carbon Dioxide 28 Anion Gap 8 BUN 17 Creatinine 0.83 Est GFR ( Amer) 114.0 Est GFR (Non-Af Amer) 94.2 BUN/Creatinine Ratio 20.5 H Glucose 90 Calcium 8.9 Ammonia 71 H Imaging: ct brain 04/23 no acute changes; small right frontal scalp hematoma cxr 04/23 small left infiltrate cxr 04/24 improved left small infiltrate, new right basal infiltrate+ Assessment: 62y M pmhx of alcohol abuse, HTN, HIV on HAART, h/o Afib, Seizure disorder; noted to have been taken off parkinsons meds by neurology, thought not to have parkinsons; comes to ER via EMS due to multiple falls and weakness for days now. Poor history on arrival as per documentation. He was found at home on the floor, not making sense, confused. He stated to staff he drinks 12oz of alcohol a day and has tried stopping recently but did have some the morning of admission. On Arrival CT brain was negative except for a scalp hematoma, CT neck was negative. There is a possible small left infiltrate on admission. He was thought to be in an alcohol withdrawal state and started on protocol. Overnight resp distress, started on hiflow, CXR with RLL infiltrate. -Delirium, suspect acute alcohol withdrawal state -acute hypoxic respiratory failure -Right lower lobe aspiration pneumonia -s/p fall with scalp hematoma HIV Alcohol abuse history Seizure disorder h/o Afib Plan: Neuro- -suspect alcohol withdrawal +/- pneumonia causing delirium; more alert and awake now; PRN ativan as needed, not on other sedatives. -Folic acid/thiamine/mvi. -seizure disorder; cont valproic acid -mildy elevated ammonia today; start lactulose BID for 1-2 days -asp prec, fall prec CVS- BP stable, tachycardia better. restart metoprolol XL 50mg daily; IV metoprolol q6h prn. cont LR 75cc/hr. Resp- on hiflow 70% 30lpm; transition to NC today. CXR with RLL infiltrate; suspect aspiration. No active distress. Bronchodilators q4h prn. IV abx ceftriaxone/azithro. Asp prec. ID- afebrile. Wbc 11. CXR with RLL infiltrate 04/24, suspect aspiration given poor mental status earlier. Cont ceftriaxone 1gm daily (day#3/5), azithromycin ( day#3/5) -cont HAART therapy; abacavir/dolutegravir/lamivudine GI- start full liquid diet, advance as tolerated. Elevated ammonia, start lactulose BID, reassess after 48 hours. Asp prec. GI proph Renal- Cr okay. LR infusion 75cc/hr. monitor urine output. keep jeffries 1 more day Heme- hg stable. Plt okay. Cont folic acid. Endo- fingerstick prn Musculsk- pressure ulcer prophylaxis. oob to chair Wounds- barely noticeable scalp hematoma; none Nutrition- full liquid diet, advance as tolerated. DVT prophylaxis: heparin sq, scds GI prophylaxis: pepcid Central Line: no Arterial Line: no Jeffries Cathetor: no Disposition: ICU; if improving in next 24 hours can downgrade to medical floor Code Status: full code Total Critical Care time is 35 minutes, excluding procedures/teaching Wild Valverde MD [employer] (Electronically Signed)
[2018-04-25] MEDS: KCL 20 MEQ/100 ML IVPREMIX* 20 MEQ/100 ML BAG IV SCH ×3 (10:05→15:15)
[2018-04-25] MEDS: Metoprolol Succinate XL TAB* 50 MG PO SCH (10:05)
[2018-04-25] MEDS: Potassium Chlor TAB* 20 MEQ TAB.ER PO SCH ×2 (10:05→20:25)
--- NOTE | 2018-04-25 11:01 | PN ---
Subjective Date of Service: 04/25/18 Interval History: Mr. Jason reports doing well. He is more coherent today, answers questions and does not recall the events that led to his admission 2 days ago. Denies chest pain, dyspnea at rest or SOB. Still on high flow oxygen at 30L/min 70%, gradually titrated to keep his O2 sats. He feels hungry, denies nausea or vomiting. Had a BM last night, incontinent of stools. Heart rate better overnight, on Lopressor IV prn, and PO as well. He has no complaints today. Family History: Unchanged from Admission Social History: Unchanged from Admission Past Medical History: Unchanged from Admission Objective Active Medications: Abacavir/Dolutegravir/Lamivudine (Triumeq Tablet (Nf)) 1 tab PO DAILY [facility] Last Admin: 04/24/18 09:53 Dose: Not Given Acetaminophen (Tylenol Tab*) 650 mg PO Q4H PRN PRN Reason: FEVER/PAIN Al Hydrox/Mg Hydrox/Simethicone (Maalox Plus*) 30 ml PO Q6H PRN PRN Reason: INDIGESTION Albuterol (Ventolin 2.5 Mg/3 Ml Neb.Flor*) 2.5 mg INH [id number] AWAKE PRN PRN Reason: sob/wheezing Albuterol/Ipratropium (Duoneb (Albuterol 2.5 Mg/Ipratropium 0.5 Mg)) 1 neb INH Q4H PRN PRN Reason: SOB/WHEEZING Bupropion HCl (Bupropion Xl*) 300 mg PO DAILY [facility] Last Admin: 04/25/18 07:52 Dose: 300 mg Famotidine (Pepcid Iv*) 20 mg SLOW PUSH DAILY [facility] Last Admin: 04/25/18 07:52 Dose: 20 mg Finasteride (Proscar Tab*) 5 mg PO DAILY [facility] Last Admin: 04/25/18 07:52 Dose: 5 mg Folic Acid (Folvite Tab*) 1 mg PO DAILY [facility] Last Admin: 04/25/18 07:53 Dose: 1 mg Gabapentin (Neurontin Cap(*)) 300 mg PO BID [facility] Last Admin: 04/25/18 07:53 Dose: 300 mg Heparin Sodium (Porcine) (Heparin Vial(*)) 5,000 units SUBCUT Q8HR [facility] Last Admin: 04/25/18 05:50 Dose: 5,000 units Ceftriaxone Sodium 1 gm/ (Sodium Chloride) 50 mls @ 200 mls/hr IVPB Q24H [facility] Last Admin: 04/24/18 18:17 Dose: 200 mls/hr Azithromycin 500 mg/ Sodium (Chloride) 250 mls @ 250 mls/hr IVPB Q24H [facility] Last Admin: 04/24/18 18:17 Dose: 250 mls/hr Lactated Ringer's (Lactated Ringers 1000 Ml Bag*) 1,000 mls @ 75 mls/hr IV PER RATE [facility] Last Admin: 04/25/18 05:50 Dose: 75 mls/hr Valproic Acid 500 mg/ Sodium (Chloride) 105 mls @ 210 mls/hr IVPB Q8H [facility] Last Admin: 04/25/18 07:48 Dose: 210 mls/hr Potassium Chloride (Potassium Chloride 20 Meq/100 Ml Ivpremix*) 20 meq in 100 mls @ 50 mls/hr IV Q2H [facility] Stop: 04/25/18 14:59 Last Admin: 04/25/18 10:05 Dose: 50 mls/hr Lactulose (Lactulose*) 15 ml PO BID [facility] Lorazepam (Ativan Inj*) 1 mg IV PUSH Q2H PRN PRN Reason: withdrawal/agitation Last Admin: 04/24/18 12:34 Dose: 1 mg Metoprolol Succinate (Toprol Xl Tab*) 50 mg PO DAILY [facility] Last Admin: 04/25/18 10:05 Dose: 50 mg Metoprolol Tartrate (Lopressor Iv*) 5 mg IV Q6H PRN PRN Reason: BLOOD PRESSURE Last Admin: 04/24/18 20:28 Dose: 5 mg Montelukast Sodium (Singulair Tab*) 10 mg PO 2100 [facility] Last Admin: 04/24/18 20:33 Dose: 10 mg Multivitamins/Minerals (Theragran/Minerals Tab*) 1 tab PO DAILY [facility] Last Admin: 04/25/18 07:52 Dose: 1 tab Nystatin (Nystatin Top Powder*) 1 applic TOPICAL BID [facility] Last Admin: 04/25/18 07:53 Dose: 1 applic Ondansetron HCl (Zofran Inj*) 4 mg IV Q4H PRN PRN Reason: NAUSEA/VOMITING Last Admin: 04/24/18 20:48 Dose: 4 mg Oxycodone/Acetaminophen (Percocet 5/325 Tab*) 1 tab PO Q6H PRN PRN Reason: PAIN Potassium Chloride (Klor Con Er Tab*) 40 meq PO BID [facility] Last Admin: 04/25/18 10:05 Dose: 40 meq Thiamine HCl (Vitamin B-1 Tab*) 100 mg PO DAILY [facility] Last Admin: 04/25/18 07:52 Dose: 100 mg Vital Signs - 8 hr 04/25/18 04/25/18 04/25/18 03:00 03:38 03:40 Temperature 97 F Pulse Rate 110 Respiratory 23 30 Rate Blood Pressure 121/80 (mmHg) O2 Sat by Pulse 95 Oximetry 04/25/18 04/25/18 04/25/18 04:00 04:30 04:44 Temperature Pulse Rate 109 106 Respiratory 28 27 28 Rate Blood Pressure 121/73 128/77 (mmHg) O2 Sat by Pulse 94 94 Oximetry 04/25/18 04/25/18 04/25/18 05:00 05:32 05:35 Temperature Pulse Rate 105 106 Respiratory 27 24 27 Rate Blood Pressure 129/83 127/80 (mmHg) O2 Sat by Pulse 94 96 Oximetry 04/25/18 04/25/18 04/25/18 06:00 06:30 07:00 Temperature Pulse Rate 105 104 100 Respiratory 27 28 28 Rate Blood Pressure 132/71 122/71 115/77 (mmHg) O2 Sat by Pulse 95 94 95 Oximetry 04/25/18 04/25/18 04/25/18 07:30 08:00 08:30 Temperature 98.7 F Pulse Rate 90 102 103 Respiratory 25 21 26 Rate Blood Pressure 135/83 117/79 132/78 (mmHg) O2 Sat by Pulse 96 93 94 Oximetry 04/25/18 04/25/18 04/25/18 09:00 09:30 10:00 Temperature Pulse Rate 101 101 107 Respiratory 25 25 25 Rate Blood Pressure 130/87 126/77 117/72 (mmHg) O2 Sat by Pulse 94 95 94 Oximetry Oxygen Devices in Use Now: High Flow Heated Nasal Cannula Appearance: Appears comfortable, appreciative of care provided, in NAD Eyes: No Scleral Icterus, PERRLA Ears/Nose/Mouth/Throat: Clear Oropharnyx, Mucous Membranes Moist Neck: NL Appearance and Movements; NL JVP, Trachea Midline Respiratory: Symmetrical Chest Expansion and Respiratory Effort, - - Decreased breath sounds at the bases, no wheezes or rhonchi. Cardiovascular: NL Sounds; No Murmurs; No JVD, RRR Abdominal: NL Sounds; No Tenderness; No Distention Extremities: No Edema Neurological: Alert and Oriented x 3, NL Sensation Result Diagrams: 04/25/18 05:23 04/25/18 05:23 Additional Lab and Data: Lab Results 04/23/18 04/23/18 Range/Units 15:12 15:12 Sodium 138 (135-145) mmol/L Potassium 3.5 (3.5-5.0) mmol/L Chloride 98 L (101-111) mmol/L Carbon Dioxide 23 (22-32) mmol/L Anion Gap 17 H (2-11) mmol/L BUN 26 H (6-24) mg/dL Creatinine 0.90 (0.67-1.17) mg/dL Est GFR ( Amer) 103.8 (>60) Est GFR (Non-Af Amer) 85.8 (>60) BUN/Creatinine Ratio 28.9 H (8-20) Glucose 112 H (70-100) mg/dL Calcium 9.9 (8.6-10.3) mg/dL Magnesium 2.4 (1.9-2.7) mg/dL Total Bilirubin 1.60 H (0.2-1.0) mg/dL AST 49 H (13-39) U/L ALT 39 (7-52) U/L Alkaline Phosphatase 65 (34-104) U/L Troponin I 0.03 (<0.04) ng/mL B-Natriuretic Peptide 139 H ( - 100) pg/mL Total Protein 7.5 (6.4-8.9) g/dL Albumin 4.0 (3.2-5.2) g/dL Globulin 3.5 (2-4) g/dL Albumin/Globulin Ratio 1.1 (1-3) Lipase 162 H (11.0-82.0) U/L TSH Pending Serum Alcohol Pending Microbiology and Other Data: Microbiology 04/23/18 18:30 Nasal Screen MRSA (PCR) - Final Nasal Mrsa Not Detected Diagnostic Imaging: . EKG Data: . Assess/Plan/Problems-Billing Assessment: A 62 y/o male with PMHx HTN, A-fib, seizure disorder and HIV, on antiretroviral therapy, who was brought to ED yesterday with active ETOH withdrawal symptoms, admitted with acute respiratory failure and treatment of delirium tremens, as well as CAP. - Patient Problems (1) Acute hyperactive alcohol withdrawal delirium Current Visit: Yes Status: Acute Comment: - Appeears to improve clinically - Continue WAM protocol with Ativan coverage - Patient more coherent today, can not recall all events leading to his admission. - OOB to chair as tolerated - No tremors this AM (2) Acute respiratory failure with hypoxia Current Visit: Yes Status: Acute Comment: - Improved with otoniel flow oxygen, now down to 30 L/min at 70% O2 - Will continue to titrate, hopefully to use NC - Continue treatment with Abx, nebulizers - If continues to improve, likelt to be transferred to step down unit by tomorrow (3) Aspiration pneumonia of right lower lobe Current Visit: Yes Status: Acute Comment: - Contiune Ceftriaxone and Azithromycin - Suspect aspiration - No chocking or aspiration since admission. - Tolerating liquid diet, started taking his PO meds, will advance to full liquid for lunch, possibly regular diet later this evening. 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 (5) Seizure Current Visit: Yes Status: Acute Comment: - Continue Valproic acid (6) Hx of human immunodeficiency virus infection Current Visit: Yes Status: Acute Comment: - Continue HARRT therapy (7) DVT prophylaxis Current Visit: Yes Status: Acute Comment: - SubQ Heparin (8) Full code status Current Visit: Yes Status: Acute Status and Disposition: Inpatient. Anticipate discharge to home when medically stable.
[2018-04-25] MEDS ORDERED: Nicotine GUM* 2 MG PO PRN (13:35)
[2018-04-25] MEDS ORDERED: Pantoprazole IV* 40 MG IV ONE (14:40)
[2018-04-25] MEDS: oxyCODONE/Acetamin 5/325 MG* TAB PO PRN ×2 (14:41→20:25)
[2018-04-25] MEDS: ABACAVIR PO SCH (14:44)
[2018-04-25] MEDS: DOLUTEGRAVIR PO SCH (14:44)
[2018-04-25] MEDS: LAMIVUDI PO SCH (14:44)
[2018-04-25] MEDS: Pantoprazole IV* 80 MG in NS 0.9% 250 ML* 250 ML IVPB SCH (15:30)
[2018-04-25 16:21] LABS: Hematocrit 36 % (42-52); Hemoglobin 12.8 g/dl (14.0-18.0)
[2018-04-25] MEDS: Azithromycin IV(*) 500 MG in NS 0.9% 250 ML* 250 ML IVPB SCH (17:58)
[2018-04-25] MEDS: cefTRIAXone(*) 1 GM in NS 0.9% 50 ML* 50 ML IVPB SCH (17:58)
[2018-04-25] MEDS: Montelukast Sodium TAB* 10 MG PO SCH (20:25)
[2018-04-25] MEDS: Lactulose* 15 ML UDC PO SCH (20:29)
[2018-04-26] MEDS: Pantoprazole IV* 80 MG in NS 0.9% 250 ML* 250 ML IVPB SCH ×2 (00:55→19:22)
[2018-04-26 07:07] LABS: Hematocrit 37 % (42-52); Hemoglobin 13.1 g/dl (14.0-18.0); Mean Corpuscular HGB Conc 35 g/dl (31-36); Mean Corpuscular Hemoglobin 37 pg (27-31); Mean Corpuscular Volume 105 fL (80-94); Mean Platelet Volume 8.7 um3 (7.4-10.4); Platelet Count 147 10^3/ul (150-450); Red Blood Count 3.55 10^6/ul (4.00-5.40); Red Cell Distribution Width 14 % (10.5-15); White Blood Count 8.4 10^3/ul (3.5-10.8)
[2018-04-26 07:21] LABS: EGFR Non-African American 120.6 (>60)
[2018-04-26] MEDS: Valproic Acid IV(*) 500 MG in NS 0.9% 100 ML* 100 ML IVPB SCH ×3 (08:02→23:58)
[2018-04-26] MEDS: LAMIVUDI PO SCH (08:03)
[2018-04-26] MEDS: ABACAVIR PO SCH (08:03)
[2018-04-26] MEDS: Thiamine TAB* 100 MG TAB PO SCH (08:03)
[2018-04-26] MEDS: DOLUTEGRAVIR PO SCH (08:03)
[2018-04-26] MEDS: Multivitamins/Minerals TAB PO SCH (08:04)
[2018-04-26] MEDS: Potassium Chlor TAB* 20 MEQ TAB.ER PO SCH ×2 (08:04→22:06)
[2018-04-26] MEDS: Finasteride TAB* 5 MG PO SCH (08:04)
[2018-04-26] MEDS: Folic Acid TAB* 1 MG PO SCH (08:04)
[2018-04-26] MEDS: Gabapentin CAP(*) 300 MG PO SCH ×2 (08:04→22:05)
[2018-04-26] MEDS: Metoprolol Succinate XL TAB* 50 MG PO SCH (08:04)
[2018-04-26] MEDS: Lactulose* 15 ML UDC PO SCH ×2 (08:04→22:05)
[2018-04-26] MEDS: BuPROPion XL* 300 MG TAB.XL PO SCH (08:04)
[2018-04-26] MEDS: Nystatin TOP POWDER* 15 GM BTL TOPICAL SCH ×2 (08:06→22:09)
--- NOTE | 2018-04-26 09:04 | PN ---
Date of Service: 04/26/18 Critical Care Services: 62M with htn, hiv on art, h/o afib, seizure disorder, etoh abuse brought in for AMS. Thought to have delirium 2/2 etoh withdrawal and pneumonia. Patient with improved mental status. 04/26: Off HFNC. Mental status improved. Vital Signs: Temp Pulse Resp BP SpO2 FiO2 97.8 F 89 22 132/78 94 40 04/26/18 08:00 04/26/18 08:30 04/26/18 08:30 04/26/18 08:30 04/26/18 08:30 04/26 08:00 Physical Exam: Gen - NAD HEENT - +scalp hematoma, eomi, perrl Neck - no jvd CV - s1/s2, no murmur Lungs - no wheeze, +ronchi Abd - soft, nt, nd Ext - no edema Neuro - non-focal Fluid Balance (Past 24 Hours): I= O= Net Intake & Output 04/24/18 04/25/18 04/26/18 04/27/18 06:59 06:59 06:59 06:59 Intake Total 3526 1420 3595 100 Output Total 1275 1330 1734 0 Balance 2251 90 1861 100 Weight 79 kg 77.8 kg 82 kg Intake: IV Fluids 2986 1413 1901 LR 1364 1796 NS (0.9%) 876 49 Valproic acid 105 IVPB 540 7 494 ABX - AZITHROMYCIN 265 250 ABX - CEFTRIAXONE 55 KCL 144 Valproic acid 220 7 100 Medicated IV 270 GEN - Pantoprazole/ 270 Protonix Oral 0 0 930 100 Output: Urine 525 110 0 Jeffries 750 1220 1734 Other: Estimated Void Medium Date of Last Bowel 04/26/18 04/26/18 Movement # Bowel Movements 0 0 Estimated Stool Amount Medium Labs: Laboratory Results - last 24 hr 04/25/18 04/25/18 04/26/18 16:10 16:10 05:30 WBC RBC Hgb 12.8 L Hct 36 L MCV MCH MCHC RDW Plt Count MPV Sodium 139 Potassium 3.4 L Chloride 104 Carbon Dioxide 29 Anion Gap 6 BUN 10 Creatinine 0.67 Est GFR ( Amer) 145.9 Est GFR (Non-Af Amer) 120.6 BUN/Creatinine Ratio 14.9 Glucose 81 Calcium 8.6 Blood Type B Positive Antibody Screen Negative 04/26/18 05:30 WBC 8.4 RBC 3.55 L Hgb 13.1 L Hct 37 L MCV 105 H MCH 37 H MCHC 35 RDW 14 Plt Count 147 L MPV 8.7 Sodium Potassium Chloride Carbon Dioxide Anion Gap BUN Creatinine Est GFR ( Amer) Est GFR (Non-Af Amer) BUN/Creatinine Ratio Glucose Calcium Blood Type Antibody Screen Studies: CXR 04/23 IMPRESSION: SMALL LEFT BASILAR INFILTRATE. Head CT 04/23 IMPRESSION: CORTICAL ATROPHY WITH CHRONIC MICROVASCULAR ISCHEMIC CHANGES. NO ACUTE FINDINGS. SMALL RIGHT FRONTAL SCALP HEMATOMA. Cervical Spin CT 04/23 IMPRESSION: MINOR MIDCERVICAL OSTEOARTHRITIC CHANGE. NO ACUTE FINDINGS CXR 04/24 IMPRESSION: SMALL BIBASILAR OPACITIES WITH MILD IMPROVEMENT ON THE LEFT AND MILD WORSENING ON THE RIGHT Impression: 62M with htn, h/o afib, etoh abuse, hiv on art presents with ams 2/2 etoh withdrawal complicated by aspiration pna Plan: Neuro - AMS, seizure d/o - 2/2 etoh withdrawal - now improved - c/w valproic acid CV - htn, h/o afib - currently in sinus - c/w home antihypertensives Pulm - hypoxic respiratory failure - 2/2 aspiration pna - wean o2 as tolerated - nebs prn ID - aspiration pna, hiv - ceftriaxone/azithro - check urine legionella/pneumococcal ag - f/u cultures - last cd4 > 500 (08/11) - c/w art GI - diet as tolerated Renal - hypokalemia - replete prn - monitor lytes - strict i/o Heme - monitor cbc Endo - check fs, niss Lines - piv, jeffries PPx - gi/dvt Critical Care Time: 40 mins
[2018-04-26] MEDS: Azithromycin TAB* 250 MG PO SCH (17:21)
[2018-04-26] MEDS: cefTRIAXone(*) 1 GM in NS 0.9% 50 ML* 50 ML IVPB SCH (19:35)
[2018-04-26] MEDS: oxyCODONE/Acetamin 5/325 MG* TAB PO PRN (19:40)
[2018-04-26] MEDS: Montelukast Sodium TAB* 10 MG PO SCH (22:05)
[2018-04-27 06:07] LABS: Hematocrit 42 % (42-52); Hemoglobin 14.9 g/dl (14.0-18.0); Mean Corpuscular HGB Conc 36 g/dl (31-36); Mean Corpuscular Hemoglobin 37 pg (27-31); Mean Corpuscular Volume 105 fL (80-94); Mean Platelet Volume 7.7 um3 (7.4-10.4); Platelet Count 174 10^3/ul (150-450); Red Cell Distribution Width 14 % (10.5-15)
[2018-04-27 06:29] LABS: EGFR Non-African American 107.5 (>60)
[2018-04-27] MEDS: Finasteride TAB* 5 MG PO SCH (08:52)
[2018-04-27] MEDS: Metoprolol Succinate XL TAB* 50 MG PO SCH (08:52)
[2018-04-27] MEDS: Multivitamins/Minerals TAB PO SCH (08:52)
[2018-04-27] MEDS: Potassium Chlor TAB* 20 MEQ TAB.ER PO SCH ×2 (08:52→20:45)
[2018-04-27] MEDS: Valproic Acid IV(*) 500 MG in NS 0.9% 100 ML* 100 ML IVPB SCH ×4 (08:52→23:10)
[2018-04-27] MEDS: Thiamine TAB* 100 MG TAB PO SCH (08:52)
[2018-04-27] MEDS: Folic Acid TAB* 1 MG PO SCH (08:52)
[2018-04-27] MEDS: Gabapentin CAP(*) 300 MG PO SCH ×2 (08:53→20:42)
[2018-04-27] MEDS: Lactulose* 15 ML UDC PO SCH ×2 (08:53→20:46)
[2018-04-27] MEDS: Omeprazole CAP* 20 MG PO SCH (08:53)
[2018-04-27] MEDS: oxyCODONE/Acetamin 5/325 MG* TAB PO PRN ×3 (09:07→20:45)
[2018-04-27] MEDS: BuPROPion XL* 300 MG TAB.XL PO SCH (09:15)
[2018-04-27] MEDS: ABACAVIR PO SCH (09:15)
[2018-04-27] MEDS: DOLUTEGRAVIR PO SCH (09:15)
[2018-04-27] MEDS: LAMIVUDI PO SCH (09:15)
[2018-04-27] MEDS: Nystatin TOP POWDER* 15 GM BTL TOPICAL SCH ×2 (09:15→20:48)
--- NOTE | 2018-04-27 15:31 | PN ---
Subjective Date of Service: 04/27/18 Interval History: Patient seen and examined. Appears weak, pale. Denies any acute complaints other than cough. No chest pain, no fevers or chills. No seizure activity last 24hours. Family History: Unchanged from Admission Social History: Unchanged from Admission Past Medical History: Unchanged from Admission Objective Active Medications: Abacavir/Dolutegravir/Lamivudine (Triumeq Tablet (Nf)) 1 tab PO DAILY [facility] Last Admin: 04/27/18 09:15 Dose: 1 tab Acetaminophen (Tylenol Tab*) 650 mg PO Q4H PRN PRN Reason: FEVER/PAIN Albuterol (Ventolin 2.5 Mg/3 Ml Neb.Flor*) 2.5 mg INH [id number] AWAKE PRN PRN Reason: sob/wheezing Albuterol/Ipratropium (Duoneb (Albuterol 2.5 Mg/Ipratropium 0.5 Mg)) 1 neb INH Q4H PRN PRN Reason: SOB/WHEEZING Azithromycin (Zithromax Tab*) 500 mg PO Q24H [facility] Stop: 04/27/18 18:01 Last Admin: 04/26/18 17:21 Dose: 500 mg Bupropion HCl (Bupropion Xl*) 300 mg PO DAILY [facility] Last Admin: 04/27/18 09:15 Dose: 300 mg Finasteride (Proscar Tab*) 5 mg PO DAILY [facility] Last Admin: 04/27/18 08:52 Dose: 5 mg Folic Acid (Folvite Tab*) 1 mg PO DAILY [facility] Last Admin: 04/27/18 08:52 Dose: 1 mg Gabapentin (Neurontin Cap(*)) 300 mg PO BID [facility] Last Admin: 04/27/18 08:53 Dose: 300 mg Ceftriaxone Sodium 1 gm/ (Sodium Chloride) 50 mls @ 200 mls/hr IVPB Q24H [facility] Last Admin: 04/26/18 19:35 Dose: 200 mls/hr Valproic Acid 500 mg/ Sodium (Chloride) 105 mls @ 210 mls/hr IVPB Q8H [facility] Last Admin: 04/27/18 08:52 Dose: 210 mls/hr Lactulose (Lactulose*) 15 ml PO BID [facility] Last Admin: 04/27/18 08:53 Dose: 15 ml Lorazepam (Ativan Inj*) 1 mg IV PUSH Q2H PRN PRN Reason: withdrawal/agitation Last Admin: 04/24/18 12:34 Dose: 1 mg Metoprolol Succinate (Toprol Xl Tab*) 50 mg PO DAILY [facility] Last Admin: 04/27/18 08:52 Dose: 50 mg Montelukast Sodium (Singulair Tab*) 10 mg PO 2100 [facility] Last Admin: 04/26/18 22:05 Dose: 10 mg Multivitamins/Minerals (Theragran/Minerals Tab*) 1 tab PO DAILY [facility] Last Admin: 04/27/18 08:52 Dose: 1 tab Nicotine Polacrilex (Nicotine Gum*) 2 mg PO Q2H PRN PRN Reason: CRAVING Last Admin: 04/25/18 14:42 Dose: 2 mg Nystatin (Nystatin Top Powder*) 1 applic TOPICAL BID [facility] Last Admin: 04/27/18 09:15 Dose: 1 applic Omeprazole (Prilosec Cap*) 20 mg PO DAILY [facility] Last Admin: 04/27/18 08:53 Dose: 20 mg Ondansetron HCl (Zofran Inj*) 4 mg IV Q4H PRN PRN Reason: NAUSEA/VOMITING Last Admin: 04/24/18 20:48 Dose: 4 mg Oxycodone/Acetaminophen (Percocet 5/325 Tab*) 1 tab PO Q6H PRN PRN Reason: PAIN Last Admin: 04/27/18 14:43 Dose: 1 tab Potassium Chloride (Klor Con Er Tab*) 40 meq PO BID [facility] Last Admin: 04/27/18 08:52 Dose: 40 meq Thiamine HCl (Vitamin B-1 Tab*) 100 mg PO DAILY [facility] Last Admin: 04/27/18 08:52 Dose: 100 mg Vital Signs - 8 hr 04/27/18 04/27/18 04/27/18 08:00 08:49 08:53 Temperature 98.6 F Pulse Rate 99 Respiratory 16 21 20 Rate Blood Pressure 146/90 (mmHg) O2 Sat by Pulse 95 Oximetry 04/27/18 04/27/18 04/27/18 09:07 12:21 14:43 Temperature 98.6 F Pulse Rate 92 Respiratory 16 22 16 Rate Blood Pressure 102/79 (mmHg) O2 Sat by Pulse 95 Oximetry Oxygen Devices in Use Now: None Appearance: alert, pale, appears older than stated age Eyes: No Scleral Icterus, PERRLA Ears/Nose/Mouth/Throat: Clear Oropharnyx, Mucous Membranes Moist Neck: NL Appearance and Movements; NL JVP, Trachea Midline Respiratory: Symmetrical Chest Expansion and Respiratory Effort, Clear to Auscultation Cardiovascular: NL Sounds; No Murmurs; No JVD, RRR Abdominal: NL Sounds; No Tenderness; No Distention Extremities: No Edema Skin: No Rash or Ulcers Neurological: Alert and Oriented x 3, - - general weakness, unable to pull and roll himself in the bed, CN I-X intact, no seizures note Nutrition: Taking PO's Result Diagrams: 04/27/18 05:57 04/27/18 05:57 Additional Lab and Data: Lab Results 04/23/18 04/23/18 Range/Units 15:12 15:12 Sodium 138 (135-145) mmol/L Potassium 3.5 (3.5-5.0) mmol/L Chloride 98 L (101-111) mmol/L Carbon Dioxide 23 (22-32) mmol/L Anion Gap 17 H (2-11) mmol/L BUN 26 H (6-24) mg/dL Creatinine 0.90 (0.67-1.17) mg/dL Est GFR ( Amer) 103.8 (>60) Est GFR (Non-Af Amer) 85.8 (>60) BUN/Creatinine Ratio 28.9 H (8-20) Glucose 112 H (70-100) mg/dL Calcium 9.9 (8.6-10.3) mg/dL Magnesium 2.4 (1.9-2.7) mg/dL Total Bilirubin 1.60 H (0.2-1.0) mg/dL AST 49 H (13-39) U/L ALT 39 (7-52) U/L Alkaline Phosphatase 65 (34-104) U/L Troponin I 0.03 (<0.04) ng/mL B-Natriuretic Peptide 139 H ( - 100) pg/mL Total Protein 7.5 (6.4-8.9) g/dL Albumin 4.0 (3.2-5.2) g/dL Globulin 3.5 (2-4) g/dL Albumin/Globulin Ratio 1.1 (1-3) Lipase 162 H (11.0-82.0) U/L TSH Pending Serum Alcohol Pending Microbiology and Other Data: Microbiology 04/23/18 18:30 Nasal Screen MRSA (PCR) - Final Nasal Mrsa Not Detected Diagnostic Imaging: . EKG Data: . Assess/Plan/Problems-Billing Assessment: A 62 y/o male with PMHx HTN, A-fib, seizure disorder and HIV, on antiretroviral therapy, who was brought to ED yesterday with active ETOH withdrawal symptoms and AMS, admitted with acute respiratory failure and treatment of delirium tremens, as well as CAP. - Patient Problems (1) Acute hyperactive alcohol withdrawal delirium Code(s): F10.231 - ALCOHOL DEPENDENCE WITH WITHDRAWAL DELIRIUM SNOMED Code(s) : 7522438 Comment: - Admitted with AMS and respiratory failure - Continued improvement noted - Continue WAM protocol with Ativan coverage - PT evaluation - continue thiamine and MVI (2) Acute respiratory failure Code(s): J96.00 - ACUTE RESPIRATORY FAILURE, UNSP W HYPOXIA OR HYPERCAPNIA SNOMED Code(s): 15659136 Comment: - Resolved (3) Alcohol abuse Code(s): F10.10 - ALCOHOL ABUSE, UNCOMPLICATED SNOMED Code(s): 47670746 Comment: - nutrition services assistant consult to discuss rehab plans upon discharge - Hx alcohol abuse for a long time, attempted rehab 20 yrs ago, but relapsed - Unknown home enviroenment, partner Sual visited, recommend meeting with SW before discharge (4) Aspiration pneumonia of right lower lobe Code(s): J69.0 - PNEUMONITIS DUE TO INHALATION OF FOOD AND VOMIT SNOMED Code(s ): 117769958 Comment: - Contiune Ceftriaxone and Azithromycin, suspect aspiration - Tolerating heart healthy diet with no clinical signs of aspiration today (5) Hx of human immunodeficiency virus infection Code(s): B20 - HUMAN IMMUNODEFICIENCY VIRUS [HIV] DISEASE SNOMED Code(s): 100109900 Comment: - Continue HARRT therapy, last CD4 count >500 per record (6) Seizure Code(s): R56.9 - UNSPECIFIED CONVULSIONS SNOMED Code(s): 59954054 Comment: - Continue Valproic acid Status and Disposition: Inpatient. Anticipate discharge to home when medically stable. Recommend ETOH detox either in or out patient
[2018-04-27] MEDS: Azithromycin TAB* 250 MG PO SCH (17:08)
[2018-04-27] MEDS: LORazepam INJ* 2 MG/ML 1 ML VIAL IV PUSH PRN (17:08)
[2018-04-27] MEDS: cefTRIAXone(*) 1 GM in NS 0.9% 50 ML* 50 ML IVPB SCH (19:49)
[2018-04-27] MEDS: Montelukast Sodium TAB* 10 MG PO SCH (20:43)
[2018-04-27] MEDS: Benzonatate CAP* 100 MG PO PRN (20:43)
[2018-04-28] MEDS: oxyCODONE/Acetamin 5/325 MG* TAB PO PRN ×3 (02:33→14:32)
[2018-04-28] MEDS: LORazepam INJ* 2 MG/ML 1 ML VIAL IV PUSH PRN ×2 (02:35→14:31)
[2018-04-28] MEDS: Nystatin TOP POWDER* 15 GM BTL TOPICAL SCH ×2 (08:00→20:33)
[2018-04-28] MEDS: Valproic Acid IV(*) 500 MG in NS 0.9% 100 ML* 100 ML IVPB SCH ×2 (08:13→16:49)
[2018-04-28] MEDS: Lactulose* 15 ML UDC PO SCH ×2 (08:13→20:32)
[2018-04-28] MEDS: Omeprazole CAP* 20 MG PO SCH (08:14)
[2018-04-28] MEDS: Potassium Chlor TAB* 20 MEQ TAB.ER PO SCH ×2 (08:15→20:32)
[2018-04-28] MEDS: Acetaminophen TAB* 325 MG PO PRN ×2 (08:15→17:01)
[2018-04-28] MEDS: Metoprolol Succinate XL TAB* 50 MG PO SCH (08:15)
[2018-04-28] MEDS: Multivitamins/Minerals TAB PO SCH (08:15)
[2018-04-28] MEDS: Gabapentin CAP(*) 300 MG PO SCH ×2 (08:15→20:32)
[2018-04-28] MEDS: ABACAVIR PO SCH (08:16)
[2018-04-28] MEDS: DOLUTEGRAVIR PO SCH (08:16)
[2018-04-28] MEDS: Thiamine TAB* 100 MG TAB PO SCH (08:16)
[2018-04-28] MEDS: Folic Acid TAB* 1 MG PO SCH (08:16)
[2018-04-28] MEDS: BuPROPion XL* 300 MG TAB.XL PO SCH (08:16)
[2018-04-28] MEDS: Finasteride TAB* 5 MG PO SCH (08:16)
[2018-04-28] MEDS: LAMIVUDI PO SCH (08:16)
--- NOTE | 2018-04-28 16:19 | PN ---
Subjective Date of Service: 04/28/18 Interval History: Patient reports diarrhea, and confusion. Denies chest pain or shortness of breath. Denies and or nausea/ vomiting. No other complaints. No seizures in past 24 hours. Family History: Unchanged from Admission Social History: Unchanged from Admission Past Medical History: Unchanged from Admission Objective Active Medications: Abacavir/Dolutegravir/Lamivudine (Triumeq Tablet (Nf)) 1 tab PO DAILY [facility] Last Admin: 04/28/18 08:16 Dose: 1 tab Acetaminophen (Tylenol Tab*) 650 mg PO Q4H PRN PRN Reason: FEVER/PAIN Last Admin: 04/28/18 08:15 Dose: 650 mg Albuterol (Ventolin 2.5 Mg/3 Ml Neb.Flor*) 2.5 mg INH [id number] AWAKE PRN PRN Reason: sob/wheezing Albuterol/Ipratropium (Duoneb (Albuterol 2.5 Mg/Ipratropium 0.5 Mg)) 1 neb INH Q4H PRN PRN Reason: SOB/WHEEZING Benzonatate (Tessalon Cap*) 100 mg PO BID PRN PRN Reason: COUGH Last Admin: 04/27/18 20:43 Dose: 100 mg Bupropion HCl (Bupropion Xl*) 300 mg PO DAILY [facility] Last Admin: 04/28/18 08:16 Dose: 300 mg Finasteride (Proscar Tab*) 5 mg PO DAILY [facility] Last Admin: 04/28/18 08:16 Dose: 5 mg Folic Acid (Folvite Tab*) 1 mg PO DAILY [facility] Last Admin: 04/28/18 08:16 Dose: 1 mg Gabapentin (Neurontin Cap(*)) 300 mg PO BID [facility] Last Admin: 04/28/18 08:15 Dose: 300 mg Ceftriaxone Sodium 1 gm/ (Sodium Chloride) 50 mls @ 200 mls/hr IVPB Q24H [facility] Last Admin: 04/27/18 19:49 Dose: 200 mls/hr Valproic Acid 500 mg/ Sodium (Chloride) 105 mls @ 210 mls/hr IVPB Q8H [facility] Last Admin: 04/28/18 08:13 Dose: 210 mls/hr Lactulose (Lactulose*) 15 ml PO BID [facility] Last Admin: 04/28/18 08:13 Dose: 15 ml Lorazepam (Ativan Inj*) 1 mg IV PUSH Q2H PRN PRN Reason: withdrawal/agitation Last Admin: 04/28/18 14:31 Dose: 1 mg Metoprolol Succinate (Toprol Xl Tab*) 50 mg PO DAILY [facility] Last Admin: 04/28/18 08:15 Dose: 50 mg Montelukast Sodium (Singulair Tab*) 10 mg PO 2100 [facility] Last Admin: 04/27/18 20:43 Dose: 10 mg Multivitamins/Minerals (Theragran/Minerals Tab*) 1 tab PO DAILY [facility] Last Admin: 04/28/18 08:15 Dose: 1 tab Nicotine Polacrilex (Nicotine Gum*) 2 mg PO Q2H PRN PRN Reason: CRAVING Last Admin: 04/25/18 14:42 Dose: 2 mg Nystatin (Nystatin Top Powder*) 1 applic TOPICAL BID [facility] Last Admin: 04/28/18 08:00 Dose: 1 applic Omeprazole (Prilosec Cap*) 20 mg PO DAILY [facility] Last Admin: 04/28/18 08:14 Dose: 20 mg Ondansetron HCl (Zofran Inj*) 4 mg IV Q4H PRN PRN Reason: NAUSEA/VOMITING Last Admin: 04/24/18 20:48 Dose: 4 mg Oxycodone/Acetaminophen (Percocet 5/325 Tab*) 1 tab PO Q6H PRN PRN Reason: PAIN Last Admin: 04/28/18 14:32 Dose: 1 tab Potassium Chloride (Klor Con Er Tab*) 40 meq PO BID [facility] Last Admin: 04/28/18 08:15 Dose: 40 meq Thiamine HCl (Vitamin B-1 Tab*) 100 mg PO DAILY [facility] Last Admin: 04/28/18 08:16 Dose: 100 mg Vital Signs - 8 hr 04/28/18 04/28/18 04/28/18 08:15 10:13 10:15 Temperature Pulse Rate Respiratory 20 16 16 Rate Blood Pressure (mmHg) O2 Sat by Pulse Oximetry 04/28/18 04/28/18 04/28/18 12:10 12:34 14:31 Temperature 97.6 F Pulse Rate 79 81 Respiratory 16 16 20 Rate Blood Pressure 138/78 (mmHg) O2 Sat by Pulse 97 98 Oximetry 04/28/18 14:32 Temperature Pulse Rate Respiratory 20 Rate Blood Pressure (mmHg) O2 Sat by Pulse Oximetry Oxygen Devices in Use Now: None Appearance: confused to events, appears comfortable lying in bed, no acute distress Eyes: No Scleral Icterus Ears/Nose/Mouth/Throat: Mucous Membranes Moist Neck: NL Appearance and Movements; NL JVP Respiratory: Symmetrical Chest Expansion and Respiratory Effort, Clear to Auscultation Cardiovascular: NL Sounds; No Murmurs; No JVD, No Edema Abdominal: NL Sounds; No Tenderness; No Distention Extremities: No Edema, No Clubbing, Cyanosis Skin: No Rash or Ulcers Neurological: - - confused to president answers "wharton" , oriented to place and date. follows commands Nutrition: Taking PO's Result Diagrams: 04/27/18 05:57 04/27/18 05:57 Additional Lab and Data: Lab Results 04/23/18 04/23/18 Range/Units 15:12 15:12 Sodium 138 (135-145) mmol/L Potassium 3.5 (3.5-5.0) mmol/L Chloride 98 L (101-111) mmol/L Carbon Dioxide 23 (22-32) mmol/L Anion Gap 17 H (2-11) mmol/L BUN 26 H (6-24) mg/dL Creatinine 0.90 (0.67-1.17) mg/dL Est GFR ( Amer) 103.8 (>60) Est GFR (Non-Af Amer) 85.8 (>60) BUN/Creatinine Ratio 28.9 H (8-20) Glucose 112 H (70-100) mg/dL Calcium 9.9 (8.6-10.3) mg/dL Magnesium 2.4 (1.9-2.7) mg/dL Total Bilirubin 1.60 H (0.2-1.0) mg/dL AST 49 H (13-39) U/L ALT 39 (7-52) U/L Alkaline Phosphatase 65 (34-104) U/L Troponin I 0.03 (<0.04) ng/mL B-Natriuretic Peptide 139 H ( - 100) pg/mL Total Protein 7.5 (6.4-8.9) g/dL Albumin 4.0 (3.2-5.2) g/dL Globulin 3.5 (2-4) g/dL Albumin/Globulin Ratio 1.1 (1-3) Lipase 162 H (11.0-82.0) U/L TSH Pending Serum Alcohol Pending Microbiology and Other Data: Microbiology 04/23/18 18:30 Nasal Screen MRSA (PCR) - Final Nasal Mrsa Not Detected Diagnostic Imaging: . EKG Data: . Assess/Plan/Problems-Billing Assessment: A 62 y/o male with PMHx HTN, A-fib, seizure disorder and HIV, on antiretroviral therapy, who was brought to ED yesterday with active ETOH withdrawal symptoms and AMS, admitted with acute respiratory failure and treatment of delirium tremens, as well as CAP. - Patient Problems (1) Acute hyperactive alcohol withdrawal delirium Current Visit: Yes Status: Acute Code(s): F10.231 - ALCOHOL DEPENDENCE WITH WITHDRAWAL DELIRIUM SNOMED Code(s): 8754091 Comment: - Admitted with AMS and respiratory failure - Continued improvement noted - PT evaluation - continue thiamine and MVI - continue WAM moniotring (2) Aspiration pneumonia of right lower lobe Current Visit: Yes Status: Acute Code(s): J69.0 - PNEUMONITIS DUE TO INHALATION OF FOOD AND VOMIT SNOMED Code(s): 274090614 Comment: - afebrile - Contiune Ceftriaxone day 6 suspect aspiration - full course of azithromycin completed - Tolerating heart healthy diet with no clinical signs of aspiration today (3) Hx of human immunodeficiency virus infection Current Visit: Yes Status: Acute Code(s): B20 - HUMAN IMMUNODEFICIENCY VIRUS [HIV] DISEASE SNOMED Code(s): 381016080 Comment: - Continue HARRT therapy, last CD4 count >500 per record (4) Seizure Current Visit: Yes Status: Acute Code(s): R56.9 - UNSPECIFIED CONVULSIONS SNOMED Code(s): 21724046 Comment: - Continue Valproic acid (5) DVT prophylaxis Current Visit: Yes Status: Acute Code(s): TVJ8489 - SNOMED Code(s): 429469362 Comment: - SCD's (6) Full code status Current Visit: Yes Status: Acute Code(s): Z78.9 - OTHER SPECIFIED HEALTH STATUS SNOMED Code(s): 529332100 Status and Disposition: Inpatient. Anticipate discharge to home when medically stable. Recommend ETOH detox either in or out patient
[2018-04-28] MEDS: Benzonatate CAP* 100 MG PO PRN (18:01)
[2018-04-28] MEDS: cefTRIAXone(*) 1 GM in NS 0.9% 50 ML* 50 ML IVPB SCH (20:32)
[2018-04-28] MEDS: Montelukast Sodium TAB* 10 MG PO SCH (20:33)
[2018-04-29] MEDS: Valproic Acid IV(*) 500 MG in NS 0.9% 100 ML* 100 ML IVPB SCH ×3 (00:28→16:57)
[2018-04-29] MEDS: oxyCODONE/Acetamin 5/325 MG* TAB PO PRN ×4 (00:34→21:58)
[2018-04-29] MEDS: Gabapentin CAP(*) 300 MG PO SCH ×2 (08:25→21:59)
[2018-04-29] MEDS: ABACAVIR PO SCH (08:26)
[2018-04-29] MEDS: LAMIVUDI PO SCH (08:26)
[2018-04-29] MEDS: Lactulose* 15 ML UDC PO SCH ×2 (08:26→22:01)
[2018-04-29] MEDS: Thiamine TAB* 100 MG TAB PO SCH (08:26)
[2018-04-29] MEDS: BuPROPion XL* 300 MG TAB.XL PO SCH (08:26)
[2018-04-29] MEDS: Metoprolol Succinate XL TAB* 50 MG PO SCH (08:26)
[2018-04-29] MEDS: DOLUTEGRAVIR PO SCH (08:26)
[2018-04-29] MEDS: Multivitamins/Minerals TAB PO SCH (08:26)
[2018-04-29] MEDS: Omeprazole CAP* 20 MG PO SCH (08:26)
[2018-04-29] MEDS: Finasteride TAB* 5 MG PO SCH (08:26)
[2018-04-29] MEDS: Folic Acid TAB* 1 MG PO SCH (08:26)
[2018-04-29] MEDS: Potassium Chlor TAB* 20 MEQ TAB.ER PO SCH ×2 (08:26→22:00)
[2018-04-29] MEDS: Nystatin TOP POWDER* 15 GM BTL TOPICAL SCH ×2 (08:40→22:07)
--- NOTE | 2018-04-29 16:56 | PN ---
Subjective Date of Service: 04/29/18 Interval History: no complaints, resting in bed, Denies chest pain or shortness of breath. Denies abd pain n/v/d. No tremors, denies headache or dizziness. Working with PT would benifit from short term rehab for strength rebuilding Family History: Unchanged from Admission Social History: Unchanged from Admission Past Medical History: Unchanged from Admission Objective Active Medications: Abacavir/Dolutegravir/Lamivudine (Triumeq Tablet (Nf)) 1 tab PO DAILY [facility] Last Admin: 04/29/18 08:26 Dose: 1 tab Acetaminophen (Tylenol Tab*) 650 mg PO Q4H PRN PRN Reason: FEVER/PAIN Last Admin: 04/28/18 17:01 Dose: 650 mg Albuterol (Ventolin 2.5 Mg/3 Ml Neb.Flor*) 2.5 mg INH [id number] AWAKE PRN PRN Reason: sob/wheezing Albuterol/Ipratropium (Duoneb (Albuterol 2.5 Mg/Ipratropium 0.5 Mg)) 1 neb INH Q4H PRN PRN Reason: SOB/WHEEZING Benzonatate (Tessalon Cap*) 100 mg PO BID PRN PRN Reason: COUGH Last Admin: 04/28/18 18:01 Dose: 100 mg Bupropion HCl (Bupropion Xl*) 300 mg PO DAILY [facility] Last Admin: 04/29/18 08:26 Dose: 300 mg Finasteride (Proscar Tab*) 5 mg PO DAILY [facility] Last Admin: 04/29/18 08:26 Dose: 5 mg Folic Acid (Folvite Tab*) 1 mg PO DAILY [facility] Last Admin: 04/29/18 08:26 Dose: 1 mg Gabapentin (Neurontin Cap(*)) 300 mg PO BID [facility] Last Admin: 04/29/18 08:25 Dose: 300 mg Ceftriaxone Sodium 1 gm/ (Sodium Chloride) 50 mls @ 200 mls/hr IVPB Q24H [facility] Last Admin: 04/28/18 20:32 Dose: 200 mls/hr Valproic Acid 500 mg/ Sodium (Chloride) 105 mls @ 210 mls/hr IVPB Q8H [facility] Last Admin: 04/29/18 08:27 Dose: 210 mls/hr Lactulose (Lactulose*) 15 ml PO BID [facility] Last Admin: 04/29/18 08:26 Dose: 15 ml Lorazepam (Ativan Inj*) 1 mg IV PUSH Q2H PRN PRN Reason: withdrawal/agitation Last Admin: 04/28/18 14:31 Dose: 1 mg Metoprolol Succinate (Toprol Xl Tab*) 50 mg PO DAILY [facility] Last Admin: 04/29/18 08:26 Dose: 50 mg Montelukast Sodium (Singulair Tab*) 10 mg PO 2100 [facility] Last Admin: 04/28/18 20:33 Dose: 10 mg Multivitamins/Minerals (Theragran/Minerals Tab*) 1 tab PO DAILY [facility] Last Admin: 04/29/18 08:26 Dose: 1 tab Nicotine Polacrilex (Nicotine Gum*) 2 mg PO Q2H PRN PRN Reason: CRAVING Last Admin: 04/25/18 14:42 Dose: 2 mg Nystatin (Nystatin Top Powder*) 1 applic TOPICAL BID [facility] Last Admin: 04/29/18 08:40 Dose: 1 applic Omeprazole (Prilosec Cap*) 20 mg PO DAILY [facility] Last Admin: 04/29/18 08:26 Dose: 20 mg Ondansetron HCl (Zofran Inj*) 4 mg IV Q4H PRN PRN Reason: NAUSEA/VOMITING Last Admin: 04/24/18 20:48 Dose: 4 mg Oxycodone/Acetaminophen (Percocet 5/325 Tab*) 1 tab PO Q6H PRN PRN Reason: PAIN Last Admin: 04/29/18 10:57 Dose: 1 tab Potassium Chloride (Klor Con Er Tab*) 40 meq PO BID [facility] Last Admin: 04/29/18 08:26 Dose: 40 meq Thiamine HCl (Vitamin B-1 Tab*) 100 mg PO DAILY [facility] Last Admin: 04/29/18 08:26 Dose: 100 mg Vital Signs - 8 hr 04/29/18 04/29/18 04/29/18 09:51 10:57 11:11 Temperature 98.0 F Pulse Rate 95 Respiratory 18 16 17 Rate Blood Pressure 137/90 (mmHg) O2 Sat by Pulse 99 Oximetry 04/29/18 04/29/18 13:50 15:37 Temperature 97.9 F Pulse Rate 99 Respiratory 16 24 Rate Blood Pressure 105/73 (mmHg) O2 Sat by Pulse 96 Oximetry Oxygen Devices in Use Now: None Appearance: appears comfortable resting in bed, no acute distress. Ears/Nose/Mouth/Throat: Mucous Membranes Moist Neck: NL Appearance and Movements; NL JVP, Trachea Midline Respiratory: Symmetrical Chest Expansion and Respiratory Effort, Clear to Auscultation Cardiovascular: NL Sounds; No Murmurs; No JVD, No Edema Abdominal: NL Sounds; No Tenderness; No Distention Extremities: No Edema, No Clubbing, Cyanosis Skin: No Rash or Ulcers Neurological: Alert and Oriented x 3 Nutrition: Taking PO's Result Diagrams: 04/27/18 05:57 04/27/18 05:57 Additional Lab and Data: Lab Results 04/23/18 04/23/18 Range/Units 15:12 15:12 Sodium 138 (135-145) mmol/L Potassium 3.5 (3.5-5.0) mmol/L Chloride 98 L (101-111) mmol/L Carbon Dioxide 23 (22-32) mmol/L Anion Gap 17 H (2-11) mmol/L BUN 26 H (6-24) mg/dL Creatinine 0.90 (0.67-1.17) mg/dL Est GFR ( Amer) 103.8 (>60) Est GFR (Non-Af Amer) 85.8 (>60) BUN/Creatinine Ratio 28.9 H (8-20) Glucose 112 H (70-100) mg/dL Calcium 9.9 (8.6-10.3) mg/dL Magnesium 2.4 (1.9-2.7) mg/dL Total Bilirubin 1.60 H (0.2-1.0) mg/dL AST 49 H (13-39) U/L ALT 39 (7-52) U/L Alkaline Phosphatase 65 (34-104) U/L Troponin I 0.03 (<0.04) ng/mL B-Natriuretic Peptide 139 H ( - 100) pg/mL Total Protein 7.5 (6.4-8.9) g/dL Albumin 4.0 (3.2-5.2) g/dL Globulin 3.5 (2-4) g/dL Albumin/Globulin Ratio 1.1 (1-3) Lipase 162 H (11.0-82.0) U/L TSH Pending Serum Alcohol Pending Microbiology and Other Data: Microbiology 04/23/18 18:30 Nasal Screen MRSA (PCR) - Final Nasal Mrsa Not Detected Diagnostic Imaging: . EKG Data: . Assess/Plan/Problems-Billing Assessment: A 62 y/o male with PMHx HTN, A-fib, seizure disorder and HIV, on antiretroviral therapy, who was brought to ED yesterday with active ETOH withdrawal symptoms and AMS, admitted with acute respiratory failure and treatment of delirium tremens, as well as CAP. - Patient Problems (1) Acute hyperactive alcohol withdrawal delirium Current Visit: Yes Status: Acute Code(s): F10.231 - ALCOHOL DEPENDENCE WITH WITHDRAWAL DELIRIUM SNOMED Code(s): 4830680 Comment: - Admitted with AMS and respiratory failure - Continued improvement noted - PT/ OT evaluation - continue thiamine and MVI - continue WAM moniotring- not scoring (2) Aspiration pneumonia of right lower lobe Current Visit: Yes Status: Acute Code(s): J69.0 - PNEUMONITIS DUE TO INHALATION OF FOOD AND VOMIT SNOMED Code(s): 248113201 Comment: - afebrile - Contiune Ceftriaxone day 7 suspect aspiration - full course of azithromycin completed - Tolerating heart healthy diet with no clinical signs of aspiration (3) Hx of human immunodeficiency virus infection Current Visit: Yes Status: Acute Code(s): B20 - HUMAN IMMUNODEFICIENCY VIRUS [HIV] DISEASE SNOMED Code(s): 836464423 Comment: - Continue HARRT therapy, last CD4 count >500 per record (4) Seizure Current Visit: Yes Status: Acute Code(s): R56.9 - UNSPECIFIED CONVULSIONS SNOMED Code(s): 75156664 Comment: - Continue Valproic acid (5) DVT prophylaxis Current Visit: Yes Status: Acute Code(s): QEU1074 - SNOMED Code(s): 429981871 Comment: - SCD's (6) Full code status Current Visit: Yes Status: Acute Code(s): Z78.9 - OTHER SPECIFIED HEALTH STATUS SNOMED Code(s): 703738784 Status and Disposition: Inpatient. will need STR- waiting for bed
[2018-04-29] MEDS: cefTRIAXone(*) 1 GM in NS 0.9% 50 ML* 50 ML IVPB SCH (19:51)
[2018-04-29] MEDS: Montelukast Sodium TAB* 10 MG PO SCH (21:59)
[2018-04-29] MEDS: LORazepam INJ* 2 MG/ML 1 ML VIAL IV PUSH PRN (22:02)
[2018-04-30] MEDS: Benzonatate CAP* 100 MG PO PRN (00:24)
[2018-04-30] MEDS: Valproic Acid IV(*) 500 MG in NS 0.9% 100 ML* 100 ML IVPB SCH ×2 (00:26→07:58)
[2018-04-30] MEDS: oxyCODONE/Acetamin 5/325 MG* TAB PO PRN ×4 (03:54→21:33)
[2018-04-30 07:40] LABS: EGFR Non-African American 80.6 (>60)
[2018-04-30] MEDS: Lactulose* 15 ML UDC PO SCH ×2 (07:56→20:44)
[2018-04-30] MEDS: Omeprazole CAP* 20 MG PO SCH (07:57)
[2018-04-30] MEDS: Gabapentin CAP(*) 300 MG PO SCH ×2 (07:57→20:43)
[2018-04-30] MEDS: Thiamine TAB* 100 MG TAB PO SCH (07:57)
[2018-04-30] MEDS: Folic Acid TAB* 1 MG PO SCH (07:57)
[2018-04-30] MEDS: Finasteride TAB* 5 MG PO SCH (07:57)
[2018-04-30] MEDS: Potassium Chlor TAB* 20 MEQ TAB.ER PO SCH ×2 (07:57→20:43)
[2018-04-30] MEDS: Multivitamins/Minerals TAB PO SCH (07:57)
[2018-04-30] MEDS: Metoprolol Succinate XL TAB* 50 MG PO SCH (07:57)
[2018-04-30] MEDS: BuPROPion XL* 300 MG TAB.XL PO SCH (07:57)
[2018-04-30] MEDS: LAMIVUDI PO SCH (07:58)
[2018-04-30] MEDS: ABACAVIR PO SCH (07:58)
[2018-04-30] MEDS: DOLUTEGRAVIR PO SCH (07:58)
[2018-04-30] MEDS: Nystatin TOP POWDER* 15 GM BTL TOPICAL SCH ×2 (08:19→20:45)
[2018-04-30] MEDS ORDERED: LORazepam TAB(*) 1 MG PO ONE (10:57)
--- NOTE | 2018-04-30 18:07 | PN ---
Subjective Date of Service: 04/30/18 Interval History: Pt reports he feels much better. He denies SOB/Cough. No fever or chills. He reports he has generalized weakness. He reports good appetite. Family History: Unchanged from Admission Social History: Unchanged from Admission Past Medical History: Unchanged from Admission Objective Active Medications: Abacavir/Dolutegravir/Lamivudine (Triumeq Tablet (Nf)) 1 tab PO DAILY [facility] Last Admin: 04/30/18 07:58 Dose: 1 tab Acetaminophen (Tylenol Tab*) 650 mg PO Q4H PRN PRN Reason: FEVER/PAIN Last Admin: 04/28/18 17:01 Dose: 650 mg Albuterol (Ventolin 2.5 Mg/3 Ml Neb.Flor*) 2.5 mg INH [id number] AWAKE PRN PRN Reason: sob/wheezing Albuterol/Ipratropium (Duoneb (Albuterol 2.5 Mg/Ipratropium 0.5 Mg)) 1 neb INH Q4H PRN PRN Reason: SOB/WHEEZING Benzonatate (Tessalon Cap*) 100 mg PO BID PRN PRN Reason: COUGH Last Admin: 04/30/18 00:24 Dose: 100 mg Bupropion HCl (Bupropion Xl*) 300 mg PO DAILY [facility] Last Admin: 04/30/18 07:57 Dose: 300 mg Cyclobenzaprine HCl (Flexeril Tab*) 5 mg PO TID PRN PRN Reason: SPASMS - MUSCLE Divalproex Sodium (Depakote Dr Tab(*)) 500 mg PO DAILY [facility] Finasteride (Proscar Tab*) 5 mg PO DAILY [facility] Last Admin: 04/30/18 07:57 Dose: 5 mg Folic Acid (Folvite Tab*) 1 mg PO DAILY [facility] Last Admin: 04/30/18 07:57 Dose: 1 mg Gabapentin (Neurontin Cap(*)) 300 mg PO BID [facility] Last Admin: 04/30/18 07:57 Dose: 300 mg Ceftriaxone Sodium 1 gm/ (Sodium Chloride) 50 mls @ 200 mls/hr IVPB 1999 [facility] Lactulose (Lactulose*) 15 ml PO BID [facility] Last Admin: 04/30/18 07:56 Dose: 15 ml Metoprolol Succinate (Toprol Xl Tab*) 50 mg PO DAILY [facility] Last Admin: 04/30/18 07:57 Dose: 50 mg Montelukast Sodium (Singulair Tab*) 10 mg PO 2100 [facility] Last Admin: 04/29/18 21:59 Dose: 10 mg Multivitamins/Minerals (Theragran/Minerals Tab*) 1 tab PO DAILY [facility] Last Admin: 04/30/18 07:57 Dose: 1 tab Nicotine Polacrilex (Nicotine Gum*) 2 mg PO Q2H PRN PRN Reason: CRAVING Last Admin: 04/25/18 14:42 Dose: 2 mg Nystatin (Nystatin Top Powder*) 1 applic TOPICAL BID [facility] Last Admin: 04/30/18 08:19 Dose: 1 applic Omeprazole (Prilosec Cap*) 20 mg PO DAILY [facility] Last Admin: 04/30/18 07:57 Dose: 20 mg Ondansetron HCl (Zofran Inj*) 4 mg IV Q4H PRN PRN Reason: NAUSEA/VOMITING Last Admin: 04/24/18 20:48 Dose: 4 mg Oxycodone/Acetaminophen (Percocet 5/325 Tab*) 1 tab PO Q4H PRN PRN Reason: PAIN Last Admin: 04/30/18 16:59 Dose: 1 tab Potassium Chloride (Klor Con Er Tab*) 40 meq PO BID [facility] Last Admin: 04/30/18 07:57 Dose: 40 meq Thiamine HCl (Vitamin B-1 Tab*) 100 mg PO DAILY [facility] Last Admin: 04/30/18 07:57 Dose: 100 mg Vital Signs - 8 hr 04/30/18 04/30/18 04/30/18 10:18 11:14 11:29 Temperature 98.0 F Pulse Rate 96 Respiratory 16 18 16 Rate Blood Pressure 117/88 (mmHg) O2 Sat by Pulse 95 Oximetry 04/30/18 04/30/18 04/30/18 13:04 14:41 15:08 Temperature 97.8 F 97.8 F Pulse Rate 92 86 Respiratory 18 16 Rate Blood Pressure 120/71 119/85 (mmHg) O2 Sat by Pulse 98 99 Oximetry 04/30/18 04/30/18 04/30/18 16:30 16:37 16:59 Temperature 97.1 F 97.1 F Pulse Rate 87 87 Respiratory 20 20 20 Rate Blood Pressure 115/80 115/80 (mmHg) O2 Sat by Pulse 98 98 Oximetry Oxygen Devices in Use Now: None Appearance: 62 yo chronically ill male laying in bed in NAD Eyes: No Scleral Icterus, PERRLA Ears/Nose/Mouth/Throat: Mucous Membranes Moist Neck: NL Appearance and Movements; NL JVP Respiratory: Symmetrical Chest Expansion and Respiratory Effort, - - R/L crackles in bases Cardiovascular: NL Sounds; No Murmurs; No JVD, RRR, No Edema Abdominal: NL Sounds; No Tenderness; No Distention Extremities: No Edema, No Clubbing, Cyanosis Skin: No Rash or Ulcers, No Nodules or Sclerosis Neurological: Alert and Oriented x 3, NL Sensation, NL Muscle Strength and Tone Lines/Tubes/Other Access: Clean, Dry and Intact Peripheral IV Nutrition: Taking PO's Result Diagrams: 04/27/18 05:57 04/30/18 06:57 Additional Lab and Data: Lab Results 04/23/18 04/23/18 Range/Units 15:12 15:12 Sodium 138 (135-145) mmol/L Potassium 3.5 (3.5-5.0) mmol/L Chloride 98 L (101-111) mmol/L Carbon Dioxide 23 (22-32) mmol/L Anion Gap 17 H (2-11) mmol/L BUN 26 H (6-24) mg/dL Creatinine 0.90 (0.67-1.17) mg/dL Est GFR ( Amer) 103.8 (>60) Est GFR (Non-Af Amer) 85.8 (>60) BUN/Creatinine Ratio 28.9 H (8-20) Glucose 112 H (70-100) mg/dL Calcium 9.9 (8.6-10.3) mg/dL Magnesium 2.4 (1.9-2.7) mg/dL Total Bilirubin 1.60 H (0.2-1.0) mg/dL AST 49 H (13-39) U/L ALT 39 (7-52) U/L Alkaline Phosphatase 65 (34-104) U/L Troponin I 0.03 (<0.04) ng/mL B-Natriuretic Peptide 139 H ( - 100) pg/mL Total Protein 7.5 (6.4-8.9) g/dL Albumin 4.0 (3.2-5.2) g/dL Globulin 3.5 (2-4) g/dL Albumin/Globulin Ratio 1.1 (1-3) Lipase 162 H (11.0-82.0) U/L TSH Pending Serum Alcohol Pending Microbiology and Other Data: Microbiology 04/23/18 18:30 Nasal Screen MRSA (PCR) - Final Nasal Mrsa Not Detected Diagnostic Imaging: . EKG Data: . Assess/Plan/Problems-Billing Assessment: A 62 y/o male with PMHx HTN, A-fib, seizure disorder and HIV, on antiretroviral therapy, who was brought to ED yesterday with active ETOH withdrawal symptoms and AMS, admitted with acute respiratory failure and treatment of delirium tremens, with aspiration pna - Patient Problems (1) Acute hyperactive alcohol withdrawal delirium Comment: - Admitted with AMS and respiratory failure - now resolved. Continues to have unsteady gait, weakness requiring subacute rehab - PT/ OT - continue thiamine and MVI - DC WAM moniotring (2) Acute respiratory failure with hypoxia Comment: - resolved (3) Hx of human immunodeficiency virus infection Comment: - Continue HARRT therapy, last CD4 count >500 per record (4) Seizure Comment: - restart PO depakote (5) Alcohol abuse Comment: - field services director consult to discuss rehab plans after subacute rehab - Hx alcohol abuse for a long time, attempted rehab 20 yrs ago, but relapsed - Unknown home environment, partner Saul does not drink (6) Full code status (7) DVT prophylaxis Comment: - SCD's Status and Disposition: Inpatient. will need STR- waiting for bed
[2018-04-30] MEDS ORDERED: cefTRIAXone(*) 1 GM in NS 0.9% 50 ML* 50 ML IVPB SCH (20:00)
[2018-04-30] MEDS: Montelukast Sodium TAB* 10 MG PO SCH (20:41)
[2018-05-01] MEDS: oxyCODONE/Acetamin 5/325 MG* TAB PO PRN ×6 (01:45→22:20)
[2018-05-01] MEDS: LAMIVUDI PO SCH (07:51)
[2018-05-01] MEDS: Gabapentin CAP(*) 300 MG PO SCH ×2 (07:51→20:03)
[2018-05-01] MEDS: ABACAVIR PO SCH (07:51)
[2018-05-01] MEDS: DOLUTEGRAVIR PO SCH (07:51)
[2018-05-01] MEDS: Metoprolol Succinate XL TAB* 50 MG PO SCH (07:53)
[2018-05-01] MEDS: Finasteride TAB* 5 MG PO SCH (07:53)
[2018-05-01] MEDS: BuPROPion XL* 300 MG TAB.XL PO SCH (07:54)
[2018-05-01] MEDS: Thiamine TAB* 100 MG TAB PO SCH (07:54)
[2018-05-01] MEDS: Multivitamins/Minerals TAB PO SCH (07:54)
[2018-05-01] MEDS: Potassium Chlor TAB* 20 MEQ TAB.ER PO SCH ×2 (07:55→20:04)
[2018-05-01] MEDS: Divalproex DR TAB(*) 500 MG PO SCH (07:56)
[2018-05-01] MEDS: Omeprazole CAP* 20 MG PO SCH (07:57)
[2018-05-01] MEDS: Folic Acid TAB* 1 MG PO SCH (07:57)
[2018-05-01] MEDS: Lactulose* 15 ML UDC PO SCH ×2 (07:59→20:05)
[2018-05-01] MEDS: Nystatin TOP POWDER* 15 GM BTL TOPICAL SCH ×2 (09:17→20:05)
--- NOTE | 2018-05-01 16:47 | PN ---
Subjective Date of Service: 05/01/18 Interval History: Patient reports he is feeling better everyday. He denies any SOB/CP. No seizure activity. Denies tremors. Today he is worried d/t his partner is home sick. Pt denies cough. No fevers or chills. Family History: Unchanged from Admission Social History: Unchanged from Admission Past Medical History: Unchanged from Admission Objective Active Medications: Abacavir/Dolutegravir/Lamivudine (Triumeq Tablet (Nf)) 1 tab PO DAILY [facility] Last Admin: 05/01/18 07:51 Dose: 1 tab Acetaminophen (Tylenol Tab*) 650 mg PO Q4H PRN PRN Reason: FEVER/PAIN Last Admin: 04/28/18 17:01 Dose: 650 mg Albuterol (Ventolin 2.5 Mg/3 Ml Neb.Flor*) 2.5 mg INH [id number] AWAKE PRN PRN Reason: sob/wheezing Albuterol/Ipratropium (Duoneb (Albuterol 2.5 Mg/Ipratropium 0.5 Mg)) 1 neb INH Q4H PRN PRN Reason: SOB/WHEEZING Benzonatate (Tessalon Cap*) 100 mg PO BID PRN PRN Reason: COUGH Last Admin: 04/30/18 00:24 Dose: 100 mg Bupropion HCl (Bupropion Xl*) 300 mg PO DAILY [facility] Last Admin: 05/01/18 07:54 Dose: 300 mg Cyclobenzaprine HCl (Flexeril Tab*) 5 mg PO TID PRN PRN Reason: SPASMS - MUSCLE Divalproex Sodium (Depakote Dr Tab(*)) 500 mg PO DAILY [facility] Last Admin: 05/01/18 07:56 Dose: 500 mg Finasteride (Proscar Tab*) 5 mg PO DAILY [facility] Last Admin: 05/01/18 07:53 Dose: 5 mg Folic Acid (Folvite Tab*) 1 mg PO DAILY [facility] Last Admin: 05/01/18 07:57 Dose: 1 mg Gabapentin (Neurontin Cap(*)) 300 mg PO BID [facility] Last Admin: 05/01/18 07:51 Dose: 300 mg Ceftriaxone Sodium 1 gm/ (Sodium Chloride) 50 mls @ 200 mls/hr IVPB 2000 [facility] Last Admin: 04/30/18 19:44 Dose: 200 mls/hr Lactulose (Lactulose*) 15 ml PO BID [facility] Last Admin: 05/01/18 07:59 Dose: 15 ml Metoprolol Succinate (Toprol Xl Tab*) 50 mg PO DAILY [facility] Last Admin: 05/01/18 07:53 Dose: 50 mg Montelukast Sodium (Singulair Tab*) 10 mg PO 2100 [facility] Last Admin: 04/30/18 20:41 Dose: 10 mg Multivitamins/Minerals (Theragran/Minerals Tab*) 1 tab PO DAILY [facility] Last Admin: 05/01/18 07:54 Dose: 1 tab Nicotine Polacrilex (Nicotine Gum*) 2 mg PO Q2H PRN PRN Reason: CRAVING Last Admin: 04/25/18 14:42 Dose: 2 mg Nystatin (Nystatin Top Powder*) 1 applic TOPICAL BID [facility] Last Admin: 05/01/18 09:17 Dose: 1 applic Omeprazole (Prilosec Cap*) 20 mg PO DAILY [facility] Last Admin: 05/01/18 07:57 Dose: 20 mg Ondansetron HCl (Zofran Inj*) 4 mg IV Q4H PRN PRN Reason: NAUSEA/VOMITING Last Admin: 04/24/18 20:48 Dose: 4 mg Oxycodone/Acetaminophen (Percocet 5/325 Tab*) 1 tab PO Q4H PRN PRN Reason: PAIN Last Admin: 05/01/18 14:18 Dose: 1 tab Potassium Chloride (Klor Con Er Tab*) 40 meq PO BID [facility] Last Admin: 05/01/18 07:55 Dose: 40 meq Thiamine HCl (Vitamin B-1 Tab*) 100 mg PO DAILY [facility] Last Admin: 05/01/18 07:54 Dose: 100 mg Vital Signs - 8 hr 05/01/18 05/01/18 05/01/18 09:26 10:00 10:11 Temperature Pulse Rate Respiratory 16 16 16 Rate Blood Pressure (mmHg) O2 Sat by Pulse Oximetry 05/01/18 05/01/18 05/01/18 10:15 12:19 12:49 Temperature 97.0 F Pulse Rate 83 Respiratory 16 16 16 Rate Blood Pressure 130/78 (mmHg) O2 Sat by Pulse 94 Oximetry 05/01/18 05/01/18 13:55 14:18 Temperature 98.2 F Pulse Rate 96 Respiratory 15 16 Rate Blood Pressure 117/84 (mmHg) O2 Sat by Pulse 95 Oximetry Oxygen Devices in Use Now: None Appearance: 62 yo male laying in bed in NAD, A+Ox3 Eyes: No Scleral Icterus, PERRLA Ears/Nose/Mouth/Throat: NL Teeth, Lips, Gums, Mucous Membranes Moist Neck: NL Appearance and Movements; NL JVP Respiratory: Symmetrical Chest Expansion and Respiratory Effort, Clear to Auscultation Cardiovascular: NL Sounds; No Murmurs; No JVD, RRR, No Edema Abdominal: NL Sounds; No Tenderness; No Distention Extremities: No Edema, No Clubbing, Cyanosis Skin: No Rash or Ulcers, No Nodules or Sclerosis Neurological: Alert and Oriented x 3, NL Sensation, NL Gait, NL Muscle Strength and Tone Lines/Tubes/Other Access: Clean, Dry and Intact PICC Line Nutrition: Taking PO's Result Diagrams: 04/27/18 05:57 04/30/18 06:57 Additional Lab and Data: Lab Results 04/23/18 04/23/18 Range/Units 15:12 15:12 Sodium 138 (135-145) mmol/L Potassium 3.5 (3.5-5.0) mmol/L Chloride 98 L (101-111) mmol/L Carbon Dioxide 23 (22-32) mmol/L Anion Gap 17 H (2-11) mmol/L BUN 26 H (6-24) mg/dL Creatinine 0.90 (0.67-1.17) mg/dL Est GFR ( Amer) 103.8 (>60) Est GFR (Non-Af Amer) 85.8 (>60) BUN/Creatinine Ratio 28.9 H (8-20) Glucose 112 H (70-100) mg/dL Calcium 9.9 (8.6-10.3) mg/dL Magnesium 2.4 (1.9-2.7) mg/dL Total Bilirubin 1.60 H (0.2-1.0) mg/dL AST 49 H (13-39) U/L ALT 39 (7-52) U/L Alkaline Phosphatase 65 (34-104) U/L Troponin I 0.03 (<0.04) ng/mL B-Natriuretic Peptide 139 H ( - 100) pg/mL Total Protein 7.5 (6.4-8.9) g/dL Albumin 4.0 (3.2-5.2) g/dL Globulin 3.5 (2-4) g/dL Albumin/Globulin Ratio 1.1 (1-3) Lipase 162 H (11.0-82.0) U/L TSH Pending Serum Alcohol Pending Microbiology and Other Data: Microbiology 04/23/18 18:30 Nasal Screen MRSA (PCR) - Final Nasal Mrsa Not Detected Diagnostic Imaging: . EKG Data: . Assess/Plan/Problems-Billing Assessment: A 62 y/o male with PMHx HTN, A-fib, seizure disorder and HIV, on antiretroviral therapy, who was brought to ED yesterday with active ETOH withdrawal symptoms and AMS, admitted with acute respiratory failure and treatment of delirium tremens, with aspiration pna - Patient Problems (1) Acute hyperactive alcohol withdrawal delirium Comment: - Admitted with AMS and respiratory failure - now resolved. Posasible aspiration pneumonia. -Continues to have unsteady gait, weakness requiring subacute rehab - PT/ OT - continue thiamine and MVI - DC WAM moniotring (2) Acute respiratory failure with hypoxia Comment: - possible aspirtaion pneumonia. Off O2. Doing well. - resolved (3) Hx of human immunodeficiency virus infection Comment: - Continue HARRT therapy, last CD4 count >500 per record (4) Seizure Comment: - PO depakote (5) Alcohol abuse Comment: - services rep consult to discuss rehab plans after subacute rehab - Hx alcohol abuse for a long time, attempted rehab 20 yrs ago, but relapsed - Unknown home environment, partner Saul does not drink (6) Full code status (7) DVT prophylaxis Comment: - SCD's Status and Disposition: Inpatient. will need STR- waiting for bed
[2018-05-01] MEDS: Acetaminophen TAB* 325 MG PO PRN (20:01)
[2018-05-01] MEDS: Montelukast Sodium TAB* 10 MG PO SCH (20:04)
[2018-05-02] MEDS: oxyCODONE/Acetamin 5/325 MG* TAB PO PRN ×4 (05:06→20:21)
[2018-05-02 08:17] LABS: Hematocrit 48 % (42-52); Hemoglobin 16.8 g/dl (14.0-18.0); Mean Corpuscular HGB Conc 35 g/dl (31-36); Mean Corpuscular Hemoglobin 37 pg (27-31); Mean Corpuscular Volume 106 fL (80-94); Mean Platelet Volume 7.5 um3 (7.4-10.4); Platelet Count 399 10^3/ul (150-450); Red Blood Count 4.49 10^6/ul (4.00-5.40); Red Cell Distribution Width 14 % (10.5-15); White Blood Count 7.6 10^3/ul (3.5-10.8)
[2018-05-02 08:22] LABS: EGFR Non-African American 66.7 (>60)
[2018-05-02 09:06] LABS: ABS Basophils 0.1 10^3/ul (0-0.2); ABS Eosinophils 0.1 10^3/ul (0-0.6); ABS Lymphocytes 2.1 10^3/ul (1.0-4.8); ABS Monocytes 1.4 10^3/ul (0-0.8); ABS Neutrophils 3.9 10^3/ul (1.5-7.7); ABS Nucleated RBC 0 10^3/ul; Eosinophil % 1.3 % (0-6); Lymphocyte % 27.2 % (25-47); Nucleated Red Blood Cells % 0.1
[2018-05-02] MEDS: BuPROPion XL* 300 MG TAB.XL PO SCH (09:57)
[2018-05-02] MEDS: Finasteride TAB* 5 MG PO SCH (09:57)
[2018-05-02] MEDS: Gabapentin CAP(*) 300 MG PO SCH ×2 (09:58→19:48)
[2018-05-02] MEDS: Metoprolol Succinate XL TAB* 50 MG PO SCH (09:58)
[2018-05-02] MEDS: Potassium Chlor TAB* 20 MEQ TAB.ER PO SCH (09:58)
[2018-05-02] MEDS: Divalproex DR TAB(*) 500 MG PO SCH (09:58)
[2018-05-02] MEDS: Folic Acid TAB* 1 MG PO SCH (09:58)
[2018-05-02] MEDS: DOLUTEGRAVIR PO SCH (09:59)
[2018-05-02] MEDS: Lactulose* 15 ML UDC PO SCH ×2 (09:59→19:52)
[2018-05-02] MEDS: ABACAVIR PO SCH (09:59)
[2018-05-02] MEDS: Omeprazole CAP* 20 MG PO SCH (09:59)
[2018-05-02] MEDS: Thiamine TAB* 100 MG TAB PO SCH (09:59)
[2018-05-02] MEDS: Multivitamins/Minerals TAB PO SCH (09:59)
[2018-05-02] MEDS: LAMIVUDI PO SCH (09:59)
[2018-05-02] MEDS: Nystatin TOP POWDER* 15 GM BTL TOPICAL SCH ×2 (10:08→19:52)
--- NOTE | 2018-05-02 14:00 | PN ---
Subjective Date of Service: 05/02/18 Interval History: Patient's main complaint today is superficial sharp pain in his neck, side and leg which he relates to falls before his admission. Patient also complains of slight cough and shortness of breath which as much improved from earlier in his hospitalization. Patient denies CP, F/C, N/V, abdominal pain, diarrhea, or other pain. Patient is interested in going home if able before going to [facility] rehab. Family History: Unchanged from Admission Social History: Unchanged from Admission Past Medical History: Unchanged from Admission Objective Active Medications: Abacavir/Dolutegravir/Lamivudine (Triumeq Tablet (Nf)) 1 tab PO DAILY [facility] Last Admin: 05/02/18 09:59 Dose: 1 tab Acetaminophen (Tylenol Tab*) 650 mg PO Q4H PRN PRN Reason: FEVER/PAIN Last Admin: 05/01/18 20:01 Dose: 650 mg Albuterol (Ventolin 2.5 Mg/3 Ml Neb.Flor*) 2.5 mg INH [id number] AWAKE PRN PRN Reason: sob/wheezing Albuterol/Ipratropium (Duoneb (Albuterol 2.5 Mg/Ipratropium 0.5 Mg)) 1 neb INH Q4H PRN PRN Reason: SOB/WHEEZING Benzonatate (Tessalon Cap*) 100 mg PO BID PRN PRN Reason: COUGH Last Admin: 04/30/18 00:24 Dose: 100 mg Bupropion HCl (Bupropion Xl*) 300 mg PO DAILY [facility] Last Admin: 05/02/18 09:57 Dose: 300 mg Cyclobenzaprine HCl (Flexeril Tab*) 5 mg PO TID PRN PRN Reason: SPASMS - MUSCLE Divalproex Sodium (Depakote Dr Tab(*)) 500 mg PO DAILY [facility] Last Admin: 05/02/18 09:58 Dose: 500 mg Finasteride (Proscar Tab*) 5 mg PO DAILY [facility] Last Admin: 05/02/18 09:57 Dose: 5 mg Folic Acid (Folvite Tab*) 1 mg PO DAILY [facility] Last Admin: 05/02/18 09:58 Dose: 1 mg Gabapentin (Neurontin Cap(*)) 300 mg PO BID [facility] Last Admin: 05/02/18 09:58 Dose: 300 mg Guaifenesin (Mucinex*) 1,200 mg PO BID [facility] Lactulose (Lactulose*) 15 ml PO BID [facility] Last Admin: 05/02/18 09:59 Dose: 15 ml Metoprolol Succinate (Toprol Xl Tab*) 50 mg PO DAILY [facility] Last Admin: 05/02/18 09:58 Dose: 50 mg Montelukast Sodium (Singulair Tab*) 10 mg PO 2100 [facility] Last Admin: 05/01/18 20:04 Dose: 10 mg Multivitamins/Minerals (Theragran/Minerals Tab*) 1 tab PO DAILY [facility] Last Admin: 05/02/18 09:59 Dose: 1 tab Nicotine Polacrilex (Nicotine Gum*) 2 mg PO Q2H PRN PRN Reason: CRAVING Last Admin: 04/25/18 14:42 Dose: 2 mg Nystatin (Nystatin Top Powder*) 1 applic TOPICAL BID [facility] Last Admin: 05/02/18 10:08 Dose: 1 applic Omeprazole (Prilosec Cap*) 20 mg PO DAILY [facility] Last Admin: 05/02/18 09:59 Dose: 20 mg Ondansetron HCl (Zofran Inj*) 4 mg IV Q4H PRN PRN Reason: NAUSEA/VOMITING Last Admin: 04/24/18 20:48 Dose: 4 mg Oxycodone/Acetaminophen (Percocet 5/325 Tab*) 1 tab PO Q4H PRN PRN Reason: PAIN Last Admin: 05/02/18 09:58 Dose: 1 tab Thiamine HCl (Vitamin B-1 Tab*) 100 mg PO DAILY [facility] Last Admin: 05/02/18 09:59 Dose: 100 mg Vital Signs - 8 hr 05/02/18 05/02/18 05/02/18 07:00 08:13 09:58 Temperature 96.9 F Pulse Rate 91 Respiratory 16 17 16 Rate Blood Pressure 137/90 (mmHg) O2 Sat by Pulse 96 Oximetry 05/02/18 05/02/18 05/02/18 10:00 10:04 10:05 Temperature Pulse Rate Respiratory 16 16 16 Rate Blood Pressure (mmHg) O2 Sat by Pulse Oximetry 05/02/18 05/02/18 12:05 12:24 Temperature Pulse Rate Respiratory 16 18 Rate Blood Pressure (mmHg) O2 Sat by Pulse Oximetry Oxygen Devices in Use Now: None Appearance: Patient is a 62yo male who appears stated age and is sitting in the bed in NAD. Eyes: No Scleral Icterus, PERRLA Ears/Nose/Mouth/Throat: NL Teeth, Lips, Gums, Clear Oropharnyx, Mucous Membranes Moist Neck: NL Appearance and Movements; NL JVP, Trachea Midline Respiratory: Symmetrical Chest Expansion and Respiratory Effort, - - Slight expiratory wheeze in RML. Cardiovascular: NL Sounds; No Murmurs; No JVD, No Edema, - - Slightly Tachycardic. Abdominal: NL Sounds; No Tenderness; No Distention, No Hepatosplenomegaly Lymphatic: No Cervical Adenopathy Extremities: No Edema, No Clubbing, Cyanosis Skin: No Rash or Ulcers, No Nodules or Sclerosis Neurological: Alert and Oriented x 3, NL Sensation, NL Muscle Strength and Tone , - - CN II-XII intact. Result Diagrams: 05/02/18 07:51 05/02/18 07:51 Additional Lab and Data: Lab Results Microbiology and Other Data: Microbiology 04/23/18 18:30 Nasal Screen MRSA (PCR) - Final Nasal Mrsa Not Detected Diagnostic Imaging: . EKG Data: . Assess/Plan/Problems-Billing Assessment: A 62 y/o male with PMHx HTN, A-fib, seizure disorder and HIV, on antiretroviral therapy, who was brought to ED with active ETOH withdrawal symptoms and AMS, admitted with acute respiratory failure and treatment of delirium tremens, with aspiration Pneumonia, now much improved. Has significant deconditioning and will likely need AIDEE at discharge. - Patient Problems (1) Acute hyperactive alcohol withdrawal delirium Current Visit: Yes Status: Acute Code(s): F10.231 - ALCOHOL DEPENDENCE WITH WITHDRAWAL DELIRIUM SNOMED Code(s): 1197205 Comment: - Admitted with AMS and respiratory failure - Now resolved. Possible aspiration pneumonia. Completed antibiotics - Continues to have unsteady gait, weakness requiring subacute rehab - PT/ OT - Continue thiamine and MVI - WAM monitoring D/C'd on 04/30 (2) Acute respiratory failure with hypoxia Current Visit: Yes Status: Acute Code(s): J96.01 - ACUTE RESPIRATORY FAILURE WITH HYPOXIA SNOMED Code(s): 51971233 Comment: - Possible aspirtaion pneumonia related to alchohol abuse. - Weaned Off O2. Doing well. - Antibiotics completed. (3) Alcohol abuse Current Visit: Yes Status: Acute Code(s): F10.10 - ALCOHOL ABUSE, UNCOMPLICATED SNOMED Code(s): 42386569 Comment: - dining services director consult to discuss rehab plans - Hx alcohol abuse for a long time, attempted rehab 20 yrs ago, but relapsed - Unknown home environment, partner Saul does not drink (4) Aspiration pneumonia of right lower lobe Current Visit: Yes Status: Acute Code(s): J69.0 - PNEUMONITIS DUE TO INHALATION OF FOOD AND VOMIT SNOMED Code(s): 298722095 Comment: - Completed antibiotics, No signs of persistent infection. - Likely due to alcohol abuse. (5) DVT prophylaxis Current Visit: Yes Status: Acute Code(s): YHA6847 - SNOMED Code(s): 418900571 Comment: - SCD's (6) Seizure Current Visit: Yes Status: Acute Code(s): R56.9 - UNSPECIFIED CONVULSIONS SNOMED Code(s): 47060068 Comment: - PO depakote (7) Hyperammonemia Current Visit: Yes Status: Acute Code(s): E72.20 - DISORDER OF UREA CYCLE METABOLISM, UNSPECIFIED SNOMED Code(s): 2614737 Comment: - Persistent Low-level Hyperammonemia despite lactulose therapy. - Increase Lactulose - Possibly related to liver dysfunction or Valproic Acid. - Would recommend changing anti-epileptic medication outpatient. - Not obviously symptomatic at this time (8) Hx of human immunodeficiency virus infection Current Visit: Yes Status: Acute Code(s): B20 - HUMAN IMMUNODEFICIENCY VIRUS [HIV] DISEASE SNOMED Code(s): 852200609 Comment: - Continue HAART therapy, last CD4 count >500 per record (9) Full code status Current Visit: Yes Status: Acute Code(s): Z78.9 - OTHER SPECIFIED HEALTH STATUS SNOMED Code(s): 393398770 Status and Disposition: Inpatient. will need STR- waiting for bed
[2018-05-02] MEDS: Cyclobenzaprine TAB* 10 MG PO PRN (19:47)
[2018-05-02] MEDS: Acetaminophen TAB* 325 MG PO PRN (19:47)
[2018-05-02] MEDS: guaiFENesin ER TAB 600 MG PO SCH (19:48)
[2018-05-02] MEDS: Montelukast Sodium TAB* 10 MG PO SCH (19:48)
[2018-05-03] MEDS: oxyCODONE/Acetamin 5/325 MG* TAB PO PRN ×5 (00:22→20:30)
[2018-05-03 07:17] LABS: ABS Basophils 0.1 10^3/ul (0-0.2); ABS Eosinophils 0.1 10^3/ul (0-0.6); ABS Lymphocytes 1.9 10^3/ul (1.0-4.8); ABS Monocytes 1.1 10^3/ul (0-0.8); ABS Neutrophils 4.6 10^3/ul (1.5-7.7); ABS Nucleated RBC 0 10^3/ul; Eosinophil % 1.3 % (0-6); Hematocrit 44 % (42-52); Hemoglobin 15.2 g/dl (14.0-18.0); Lymphocyte % 24.3 % (25-47); Mean Corpuscular HGB Conc 35 g/dl (31-36); Mean Corpuscular Hemoglobin 36 pg (27-31); Mean Corpuscular Volume 106 fL (80-94); Mean Platelet Volume 7.4 um3 (7.4-10.4); Nucleated Red Blood Cells % 0; Platelet Count 345 10^3/ul (150-450); Red Blood Count 4.18 10^6/ul (4.00-5.40); Red Cell Distribution Width 15 % (10.5-15); White Blood Count 7.8 10^3/ul (3.5-10.8)
[2018-05-03 07:35] LABS: EGFR Non-African American 68.1 (>60)
[2018-05-03] MEDS: Folic Acid TAB* 1 MG PO SCH (08:06)
[2018-05-03] MEDS: Metoprolol Succinate XL TAB* 50 MG PO SCH (08:07)
[2018-05-03] MEDS: BuPROPion XL* 300 MG TAB.XL PO SCH (08:07)
[2018-05-03] MEDS: Thiamine TAB* 100 MG TAB PO SCH (08:07)
[2018-05-03] MEDS: Omeprazole CAP* 20 MG PO SCH (08:07)
[2018-05-03] MEDS: Multivitamins/Minerals TAB PO SCH (08:07)
[2018-05-03] MEDS: Finasteride TAB* 5 MG PO SCH (08:07)
[2018-05-03] MEDS: DOLUTEGRAVIR PO SCH (08:08)
[2018-05-03] MEDS: Gabapentin CAP(*) 300 MG PO SCH ×2 (08:08→20:30)
[2018-05-03] MEDS: ABACAVIR PO SCH (08:08)
[2018-05-03] MEDS: Divalproex DR TAB(*) 500 MG PO SCH (08:08)
[2018-05-03] MEDS: LAMIVUDI PO SCH (08:08)
[2018-05-03] MEDS: guaiFENesin ER TAB 600 MG PO SCH ×2 (08:08→20:30)
[2018-05-03] MEDS: Lactulose* 15 ML UDC PO SCH (08:09)
[2018-05-03] MEDS: Nystatin TOP POWDER* 15 GM BTL TOPICAL SCH ×2 (08:09→20:52)
--- NOTE | 2018-05-03 13:59 | PN ---
Subjective Date of Service: 05/03/18 Interval History: Patient has persistent steady pain which is well controlled with pain medication. Patient feels as if he is improving in his strength with ambulation. Patient denies CP, SOB, N/V, abdominal pain, Diarrhea, F/C, dysuria , palpitations, dizziness, tremor, or other pain. Patient had 3 BMs yesterday. Family History: Unchanged from Admission Social History: Unchanged from Admission Past Medical History: Unchanged from Admission Objective Active Medications: Abacavir/Dolutegravir/Lamivudine (Triumeq Tablet (Nf)) 1 tab PO DAILY [facility] Last Admin: 05/03/18 08:08 Dose: 1 tab Acetaminophen (Tylenol Tab*) 650 mg PO Q4H PRN PRN Reason: FEVER/PAIN Last Admin: 05/02/18 19:47 Dose: 650 mg Albuterol (Ventolin 2.5 Mg/3 Ml Neb.Flor*) 2.5 mg INH [id number] AWAKE PRN PRN Reason: sob/wheezing Albuterol/Ipratropium (Duoneb (Albuterol 2.5 Mg/Ipratropium 0.5 Mg)) 1 neb INH Q4H PRN PRN Reason: SOB/WHEEZING Benzonatate (Tessalon Cap*) 100 mg PO BID PRN PRN Reason: COUGH Last Admin: 04/30/18 00:24 Dose: 100 mg Bupropion HCl (Bupropion Xl*) 300 mg PO DAILY [facility] Last Admin: 05/03/18 08:07 Dose: 300 mg Cyclobenzaprine HCl (Flexeril Tab*) 5 mg PO TID PRN PRN Reason: SPASMS - MUSCLE Last Admin: 05/02/18 19:47 Dose: 5 mg Divalproex Sodium (Depakote Dr Tab(*)) 500 mg PO DAILY [facility] Last Admin: 05/03/18 08:08 Dose: 500 mg Finasteride (Proscar Tab*) 5 mg PO DAILY [facility] Last Admin: 05/03/18 08:07 Dose: 5 mg Folic Acid (Folvite Tab*) 1 mg PO DAILY [facility] Last Admin: 05/03/18 08:06 Dose: 1 mg Gabapentin (Neurontin Cap(*)) 300 mg PO BID [facility] Last Admin: 05/03/18 08:08 Dose: 300 mg Guaifenesin (Mucinex*) 1,200 mg PO BID [facility] Last Admin: 05/03/18 08:08 Dose: 1,200 mg Metoprolol Succinate (Toprol Xl Tab*) 50 mg PO DAILY [facility] Last Admin: 05/03/18 08:07 Dose: 50 mg Montelukast Sodium (Singulair Tab*) 10 mg PO 2100 [facility] Last Admin: 05/02/18 19:48 Dose: 10 mg Multivitamins/Minerals (Theragran/Minerals Tab*) 1 tab PO DAILY [facility] Last Admin: 05/03/18 08:07 Dose: 1 tab Nicotine Polacrilex (Nicotine Gum*) 2 mg PO Q2H PRN PRN Reason: CRAVING Last Admin: 04/25/18 14:42 Dose: 2 mg Nystatin (Nystatin Top Powder*) 1 applic TOPICAL BID [facility] Last Admin: 05/03/18 08:09 Dose: 1 applic Omeprazole (Prilosec Cap*) 20 mg PO DAILY [facility] Last Admin: 05/03/18 08:07 Dose: 20 mg Ondansetron HCl (Zofran Inj*) 4 mg IV Q4H PRN PRN Reason: NAUSEA/VOMITING Last Admin: 04/24/18 20:48 Dose: 4 mg Oxycodone/Acetaminophen (Percocet 5/325 Tab*) 1 tab PO Q4H PRN PRN Reason: PAIN Last Admin: 05/03/18 11:51 Dose: 1 tab Thiamine HCl (Vitamin B-1 Tab*) 100 mg PO DAILY [facility] Last Admin: 05/03/18 08:07 Dose: 100 mg Vital Signs - 8 hr 05/03/18 05/03/18 05/03/18 06:37 08:00 08:03 Temperature 97.9 F Pulse Rate 75 Respiratory 18 16 12 Rate Blood Pressure 125/79 (mmHg) O2 Sat by Pulse 97 Oximetry 05/03/18 05/03/18 05/03/18 08:08 09:55 11:49 Temperature 97.7 F Pulse Rate 89 Respiratory 18 16 16 Rate Blood Pressure 130/87 (mmHg) O2 Sat by Pulse 99 Oximetry 05/03/18 11:51 Temperature Pulse Rate Respiratory 15 Rate Blood Pressure (mmHg) O2 Sat by Pulse Oximetry Oxygen Devices in Use Now: None Appearance: Patient is a 62yo male who appears stated age and is sitting in the bed in NAD. Eyes: No Scleral Icterus, PERRLA Ears/Nose/Mouth/Throat: NL Teeth, Lips, Gums, Clear Oropharnyx, Mucous Membranes Moist Neck: NL Appearance and Movements; NL JVP, Trachea Midline Respiratory: Symmetrical Chest Expansion and Respiratory Effort, Clear to Auscultation Cardiovascular: NL Sounds; No Murmurs; No JVD, RRR, No Edema Abdominal: NL Sounds; No Tenderness; No Distention, No Hepatosplenomegaly Lymphatic: No Cervical Adenopathy Extremities: No Edema, No Clubbing, Cyanosis Skin: No Rash or Ulcers, No Nodules or Sclerosis Neurological: Alert and Oriented x 3, NL Sensation, NL Muscle Strength and Tone , - - CN II-XII intact. Result Diagrams: 05/03/18 07:02 05/03/18 07:02 Additional Lab and Data: Lab Results Microbiology and Other Data: Microbiology 04/23/18 18:30 Nasal Screen MRSA (PCR) - Final Nasal Mrsa Not Detected Diagnostic Imaging: . EKG Data: . Assess/Plan/Problems-Billing Assessment: A 62 y/o male with PMHx HTN, A-fib, seizure disorder and HIV, on antiretroviral therapy, who was brought to ED with active ETOH withdrawal symptoms and AMS, admitted with acute respiratory failure and treatment of delirium tremens, with aspiration Pneumonia, now much improved. Has significant deconditioning and will likely need AIDEE at discharge. - Patient Problems (1) Acute hyperactive alcohol withdrawal delirium Current Visit: Yes Status: Acute Code(s): F10.231 - ALCOHOL DEPENDENCE WITH WITHDRAWAL DELIRIUM SNOMED Code(s): 2296863 Comment: - Admitted with AMS and respiratory failure - Now resolved. Possible aspiration pneumonia. Completed antibiotics - Continues to have unsteady gait, weakness requiring subacute rehab - PT/ OT - Continue thiamine and MVI - WAM monitoring D/C'd on 04/30 (2) Acute respiratory failure with hypoxia Current Visit: Yes Status: Acute Code(s): J96.01 - ACUTE RESPIRATORY FAILURE WITH HYPOXIA SNOMED Code(s): 24016555 Comment: - Possible aspirtaion pneumonia related to alchohol abuse. - Weaned Off O2. Doing well. - Antibiotics completed. (3) Alcohol abuse Current Visit: Yes Status: Acute Code(s): F10.10 - ALCOHOL ABUSE, UNCOMPLICATED SNOMED Code(s): 49729762 Comment: - dental services director consult to discuss rehab plans - Has had good results with AA before and will reestablish with his old sponsor. - Hx alcohol abuse for a long time, attempted rehab 20 yrs ago, but relapsed - Unknown home environment, partner Saul does not drink (4) Aspiration pneumonia of right lower lobe Current Visit: Yes Status: Acute Code(s): J69.0 - PNEUMONITIS DUE TO INHALATION OF FOOD AND VOMIT SNOMED Code(s): 971769645 Comment: - Completed antibiotics, No signs of persistent infection. - Likely due to alcohol abuse. (5) Seizure Current Visit: Yes Status: Acute Code(s): R56.9 - UNSPECIFIED CONVULSIONS SNOMED Code(s): 66308308 Comment: - PO depakote - Patient has not had a seizure for years and is on Depakote for mood stabilization per patient. (6) Hyperammonemia Current Visit: Yes Status: Acute Code(s): E72.20 - DISORDER OF UREA CYCLE METABOLISM, UNSPECIFIED SNOMED Code(s): 3198527 Comment: - Resolved with Lactulose Therapy - Most likely related to Valproic Acid. - Would recommend considering changing anti-epileptic medication outpatient. - Not obviously symptomatic at this time - Will D/C Lactulose therapy and monitor ammonia levels to assess for ongoing need for treatment. (7) Hx of human immunodeficiency virus infection Current Visit: Yes Status: Acute Code(s): B20 - HUMAN IMMUNODEFICIENCY VIRUS [HIV] DISEASE SNOMED Code(s): 876896844 Comment: - Continue HAART therapy, last CD4 count >500 per record (8) Full code status Current Visit: Yes Status: Acute Code(s): Z78.9 - OTHER SPECIFIED HEALTH STATUS SNOMED Code(s): 786225520 (9) DVT prophylaxis Current Visit: Yes Status: Acute Code(s): CHN4647 - SNOMED Code(s): 111820202 Comment: - SCD's Status and Disposition: Inpatient. will need STR- waiting for bed
[2018-05-03] MEDS: Montelukast Sodium TAB* 10 MG PO SCH (20:30)
[2018-05-04] MEDS: oxyCODONE/Acetamin 5/325 MG* TAB PO PRN ×5 (00:30→20:10)
[2018-05-04] MEDS: Cyclobenzaprine TAB* 10 MG PO PRN ×2 (00:30→20:09)
[2018-05-04 06:23] LABS: ABS Basophils 0.1 10^3/ul (0-0.2); ABS Eosinophils 0.1 10^3/ul (0-0.6); ABS Lymphocytes 2.1 10^3/ul (1.0-4.8); ABS Monocytes 1.3 10^3/ul (0-0.8); ABS Nucleated RBC 0 10^3/ul; Eosinophil % 1.6 % (0-6); Hematocrit 41 % (42-52); Hemoglobin 14.3 g/dl (14.0-18.0); Mean Corpuscular HGB Conc 35 g/dl (31-36); Mean Corpuscular Hemoglobin 37 pg (27-31); Mean Corpuscular Volume 106 fL (80-94); Mean Platelet Volume 7.4 um3 (7.4-10.4); Nucleated Red Blood Cells % 0; Platelet Count 351 10^3/ul (150-450); Red Blood Count 3.85 10^6/ul (4.00-5.40); Red Cell Distribution Width 15 % (10.5-15); White Blood Count 8.6 10^3/ul (3.5-10.8)
[2018-05-04 06:41] LABS: EGFR Non-African American 67.3 (>60)
[2018-05-04] MEDS: Finasteride TAB* 5 MG PO SCH (08:38)
[2018-05-04] MEDS: Multivitamins/Minerals TAB PO SCH (08:38)
[2018-05-04] MEDS: Folic Acid TAB* 1 MG PO SCH (08:38)
[2018-05-04] MEDS: Gabapentin CAP(*) 300 MG PO SCH ×2 (08:38→20:10)
[2018-05-04] MEDS: Omeprazole CAP* 20 MG PO SCH (08:39)
[2018-05-04] MEDS: ABACAVIR PO SCH (08:39)
[2018-05-04] MEDS: guaiFENesin ER TAB 600 MG PO SCH ×2 (08:39→20:11)
[2018-05-04] MEDS: LAMIVUDI PO SCH (08:39)
[2018-05-04] MEDS: BuPROPion XL* 300 MG TAB.XL PO SCH (08:39)
[2018-05-04] MEDS: Divalproex DR TAB(*) 500 MG PO SCH (08:39)
[2018-05-04] MEDS: Metoprolol Succinate XL TAB* 50 MG PO SCH (08:39)
[2018-05-04] MEDS: Thiamine TAB* 100 MG TAB PO SCH (08:39)
[2018-05-04] MEDS: DOLUTEGRAVIR PO SCH (08:39)
[2018-05-04] MEDS: Nystatin TOP POWDER* 15 GM BTL TOPICAL SCH ×2 (10:50→20:15)
--- NOTE | 2018-05-04 13:42 | PN ---
Subjective Date of Service: 05/04/18 Interval History: Patient is feeling well today. Stable pain, feeling more steady on feet. Denies F/C, N/V, abdominal pain, CP, SOB, dizziness, palpitations, or other pain. Patient is interested in hopefully going home tomorrow if able. Family History: Unchanged from Admission Social History: Unchanged from Admission Past Medical History: Unchanged from Admission Objective Active Medications: Abacavir/Dolutegravir/Lamivudine (Triumeq Tablet (Nf)) 1 tab PO DAILY [facility] Last Admin: 05/04/18 08:39 Dose: 1 tab Acetaminophen (Tylenol Tab*) 650 mg PO Q4H PRN PRN Reason: FEVER/PAIN Last Admin: 05/02/18 19:47 Dose: 650 mg Albuterol (Ventolin 2.5 Mg/3 Ml Neb.Flor*) 2.5 mg INH [id number] AWAKE PRN PRN Reason: sob/wheezing Albuterol/Ipratropium (Duoneb (Albuterol 2.5 Mg/Ipratropium 0.5 Mg)) 1 neb INH Q4H PRN PRN Reason: SOB/WHEEZING Benzonatate (Tessalon Cap*) 100 mg PO BID PRN PRN Reason: COUGH Last Admin: 04/30/18 00:24 Dose: 100 mg Bupropion HCl (Bupropion Xl*) 300 mg PO DAILY [facility] Last Admin: 05/04/18 08:39 Dose: 300 mg Cyclobenzaprine HCl (Flexeril Tab*) 5 mg PO TID PRN PRN Reason: SPASMS - MUSCLE Last Admin: 05/04/18 00:30 Dose: 5 mg Divalproex Sodium (Depakote Dr Tab(*)) 500 mg PO DAILY [facility] Last Admin: 05/04/18 08:39 Dose: 500 mg Finasteride (Proscar Tab*) 5 mg PO DAILY [facility] Last Admin: 05/04/18 08:38 Dose: 5 mg Folic Acid (Folvite Tab*) 1 mg PO DAILY [facility] Last Admin: 05/04/18 08:38 Dose: 1 mg Gabapentin (Neurontin Cap(*)) 300 mg PO BID [facility] Last Admin: 05/04/18 08:38 Dose: 300 mg Guaifenesin (Mucinex*) 1,200 mg PO BID [facility] Last Admin: 05/04/18 08:39 Dose: 1,200 mg Metoprolol Succinate (Toprol Xl Tab*) 50 mg PO DAILY [facility] Last Admin: 05/04/18 08:39 Dose: 50 mg Montelukast Sodium (Singulair Tab*) 10 mg PO 2100 [facility] Last Admin: 05/03/18 20:30 Dose: 10 mg Multivitamins/Minerals (Theragran/Minerals Tab*) 1 tab PO DAILY [facility] Last Admin: 05/04/18 08:38 Dose: 1 tab Nicotine Polacrilex (Nicotine Gum*) 2 mg PO Q2H PRN PRN Reason: CRAVING Last Admin: 04/25/18 14:42 Dose: 2 mg Nystatin (Nystatin Top Powder*) 1 applic TOPICAL BID [facility] Last Admin: 05/04/18 10:50 Dose: Not Given Omeprazole (Prilosec Cap*) 20 mg PO DAILY [facility] Last Admin: 05/04/18 08:39 Dose: 20 mg Ondansetron HCl (Zofran Inj*) 4 mg IV Q4H PRN PRN Reason: NAUSEA/VOMITING Last Admin: 04/24/18 20:48 Dose: 4 mg Oxycodone/Acetaminophen (Percocet 5/325 Tab*) 1 tab PO Q4H PRN PRN Reason: PAIN Last Admin: 05/04/18 08:38 Dose: 1 tab Thiamine HCl (Vitamin B-1 Tab*) 100 mg PO DAILY [facility] Last Admin: 05/04/18 08:39 Dose: 100 mg Vital Signs - 8 hr 05/04/18 05/04/18 05/04/18 07:37 08:38 10:51 Temperature 97.9 F Pulse Rate 74 Respiratory 18 16 16 Rate Blood Pressure 124/81 (mmHg) O2 Sat by Pulse 96 Oximetry 05/04/18 05/04/18 11:40 11:50 Temperature 98.0 F Pulse Rate 87 Respiratory 18 16 Rate Blood Pressure 130/84 (mmHg) O2 Sat by Pulse 99 Oximetry Oxygen Devices in Use Now: None Appearance: Patient is a 62yo male who appears stated age and is sitting in the bed in NAD. Eyes: No Scleral Icterus, PERRLA Ears/Nose/Mouth/Throat: NL Teeth, Lips, Gums, Clear Oropharnyx, Mucous Membranes Moist Neck: NL Appearance and Movements; NL JVP, Trachea Midline Respiratory: Symmetrical Chest Expansion and Respiratory Effort, Clear to Auscultation Cardiovascular: NL Sounds; No Murmurs; No JVD, RRR, No Edema Abdominal: NL Sounds; No Tenderness; No Distention, No Hepatosplenomegaly Lymphatic: No Cervical Adenopathy Extremities: No Edema, No Clubbing, Cyanosis Skin: No Rash or Ulcers, No Nodules or Sclerosis Neurological: Alert and Oriented x 3, NL Sensation, NL Muscle Strength and Tone , - - CN II-XII intact Result Diagrams: 05/04/18 05:53 05/04/18 05:53 Additional Lab and Data: Lab Results Microbiology and Other Data: Microbiology 04/23/18 18:30 Nasal Screen MRSA (PCR) - Final Nasal Mrsa Not Detected Diagnostic Imaging: . EKG Data: . Assess/Plan/Problems-Billing Assessment: A 62 y/o male with PMHx HTN, A-fib, seizure disorder and HIV, on antiretroviral therapy, who was brought to ED with active ETOH withdrawal symptoms and AMS, admitted with acute respiratory failure and treatment of delirium tremens, with aspiration Pneumonia, now much improved. Has significant deconditioning and will likely need AIDEE at discharge. - Patient Problems (1) Acute hyperactive alcohol withdrawal delirium Current Visit: Yes Status: Acute Code(s): F10.231 - ALCOHOL DEPENDENCE WITH WITHDRAWAL DELIRIUM SNOMED Code(s): 3405117 Comment: - Admitted with AMS and respiratory failure - Now resolved. Possible aspiration pneumonia. Completed antibiotics - Continues to have unsteady gait, weakness requiring subacute rehab - PT/ OT - Continue thiamine and MVI - WAM monitoring D/C'd on 04/30 (2) Acute respiratory failure with hypoxia Current Visit: Yes Status: Acute Code(s): J96.01 - ACUTE RESPIRATORY FAILURE WITH HYPOXIA SNOMED Code(s): 51361708 Comment: - Possible aspirtaion pneumonia related to alchohol abuse. - Weaned Off O2. Doing well. - Antibiotics completed. (3) Physical deconditioning Current Visit: Yes Status: Acute Code(s): R53.81 - OTHER MALAISE SNOMED Code(s): 24265143086800 Comment: - Patient deemed to have Rehab needs by PT. Improving. - Would likely benefit from STR. (4) Alcohol abuse Current Visit: Yes Status: Acute Code(s): F10.10 - ALCOHOL ABUSE, UNCOMPLICATED SNOMED Code(s): 12438582 Comment: - government services professional consult to discuss rehab plans - Has had good results with AA before and will reestablish with his old sponsor. - Hx alcohol abuse for a long time, attempted rehab 20 yrs ago, but relapsed - Unknown home environment, partner Saul does not drink (5) Aspiration pneumonia of right lower lobe Current Visit: Yes Status: Acute Code(s): J69.0 - PNEUMONITIS DUE TO INHALATION OF FOOD AND VOMIT SNOMED Code(s): 794886200 Comment: - Completed antibiotics, No signs of persistent infection. - Likely due to alcohol abuse. (6) Seizure Current Visit: Yes Status: Acute Code(s): R56.9 - UNSPECIFIED CONVULSIONS SNOMED Code(s): 73262709 Comment: - PO depakote - Patient has not had a seizure for years and is on Depakote for mood stabilization per patient. (7) Hyperammonemia Current Visit: Yes Status: Acute Code(s): E72.20 - DISORDER OF UREA CYCLE METABOLISM, UNSPECIFIED SNOMED Code(s): 6523581 Comment: - Resolved off Lactulose Therapy - Most likely related to Valproic Acid. - Would recommend considering changing anti-epileptic medication outpatient. - Not obviously symptomatic at this time (8) Hx of human immunodeficiency virus infection Current Visit: Yes Status: Acute Code(s): B20 - HUMAN IMMUNODEFICIENCY VIRUS [HIV] DISEASE SNOMED Code(s): 490317149 Comment: - Continue HAART therapy, last CD4 count >500 per record (9) Full code status Current Visit: Yes Status: Acute Code(s): Z78.9 - OTHER SPECIFIED HEALTH STATUS SNOMED Code(s): 123501541 (10) DVT prophylaxis Current Visit: Yes Status: Acute Code(s): SCX6925 - SNOMED Code(s): 348694316 Comment: - SCD's Status and Disposition: Inpatient. will need STR- waiting for bed
[2018-05-04] MEDS: Montelukast Sodium TAB* 10 MG PO SCH (20:08)
[2018-05-05] MEDS: oxyCODONE/Acetamin 5/325 MG* TAB PO PRN ×2 (00:25→07:54)
[2018-05-05] MEDS: guaiFENesin ER TAB 600 MG PO SCH (07:53)
[2018-05-05] MEDS: Folic Acid TAB* 1 MG PO SCH (07:54)
[2018-05-05] MEDS: Thiamine TAB* 100 MG TAB PO SCH (07:54)
[2018-05-05] MEDS: Gabapentin CAP(*) 300 MG PO SCH (07:54)
[2018-05-05] MEDS: Finasteride TAB* 5 MG PO SCH (07:55)
[2018-05-05] MEDS: Divalproex DR TAB(*) 500 MG PO SCH (07:55)
[2018-05-05] MEDS: LAMIVUDI PO SCH (07:55)
[2018-05-05] MEDS: Multivitamins/Minerals TAB PO SCH (07:55)
[2018-05-05] MEDS: Metoprolol Succinate XL TAB* 50 MG PO SCH (07:55)
[2018-05-05] MEDS: DOLUTEGRAVIR PO SCH (07:55)
[2018-05-05] MEDS: BuPROPion XL* 300 MG TAB.XL PO SCH (07:55)
[2018-05-05] MEDS: Omeprazole CAP* 20 MG PO SCH (07:55)
[2018-05-05] MEDS: ABACAVIR PO SCH (07:55)
[2018-05-05] MEDS: Nystatin TOP POWDER* 15 GM BTL TOPICAL SCH (08:06)
[2018-05-05 12:13] VITALS: BP 125/73
--- NOTE | 2018-05-06 12:52 | DS ---
CC: Akira Calvillo NP * DISCHARGE SUMMARY: DATE OF ADMISSION: 04/23/18 DATE OF DISCHARGE: 05/05/18 PRIMARY CARE PROVIDER: Akira Calvillo NP ATTENDING FOR THIS ADMISSION: Dr. Vanesa Stephens. MY ATTENDING FOR TODAY: Dr. Patricia Astudillo.* (DICTATED BY KYREE TREJO NP) HOSPITAL COURSE: This is a 62-year-old male patient, who presented encephalopathic with complaint of weakness and falls. His past medical history is significant for alcohol abuse, Parkinson's disease, hypertension, and HIV. The patient was unable to give a clear history at admission, was a very poor historian at that time. Most of the information was gathered through records and physical exam of the patient. It was ascertained that the patient had been drinking on average 12 vodkas per day and an undetermined amount of wine. The patient was brought in by ambulance after he was found at home wedged between a couch and a coffee table and appeared to be confused. The patient was initially treated in the ICU for his encephalopathy and alcohol detox. He had acute delirium tremens and was a very high risk. The patient was placed on thiamine and folic acid. He was also given IV multivitamins and boluses of fluids. He was placed on [place] protocol and monitored very closely. It was ascertained that the patient had a history of atrial fibrillation. He was tachycardic but not in AFib at the time he was admitted. Again, IV fluids were given. He was continued on beta breana. The patient did not have history of being on anticoagulation. For the patient's HIV, he is on HAART therapy. This was continued and he was seen by [facility] as the patient's home condition and personal condition appeared to be very poor. It was recommended at that time the patient possibly pursue alcohol rehabilitation after discharge. It was also noted that the patient on chest x-ray appeared to have a community-acquired pneumonia versus an aspiration pneumonia. The patient may have aspirated while intoxicated. He was empirically treated with antibiotics. Also, of note, the patient was eventually weaned off oxygen. He was on high flow at his admission while he was in the ICU for hypoxic respiratory failure, again secondary to combination of aspiration pneumonia, alcohol abuse, and alcohol detox. The patient was downgraded to the floor after he was able to wean off O2. The patient was very unsteady on his feet initially. It was thought that the patient would have physical rehab needs; however, the patient' s situation improved and he was cleared by Physical Therapy. He ambulates with a walker unassisted and did not meet criteria for subacute rehab. He was cleared for discharge on 05/05/18. He was referred by [facility] for alcohol detoxification. The patient at that time stated he had been in AA in the past and wished to pursue reestablishing relationship with his old sponsor and would pursue this on an outpatient basis. DISCHARGE DIAGNOSES: 1. Acute hyperactive alcohol withdrawal, now stable and resolved. 2. Acute respiratory failure with hypoxia secondary to combination of aspiration pneumonia and alcoholic encephalopathy. 3. Physical deconditioning, which is improved. 4. History of alcohol abuse, referral for outpatient detox, continue detoxification support. 5. Aspiration pneumonia of the right lower lobe, completed a course of empiric antibiotics with negative cultures, now resolved. 6. History of seizure disorder. The patient maintained on Depakote with no acute seizure activities noted during hospitalization. 7. Elevated ammonia levels. The patient did receive lactulose therapy. This may or may not have been related to his valproic acid. Ammonia level was normal as of 05/05/18. 8. History of human immunodeficiency virus infection, maintained on HAART therapy. His last CD4 count was greater than 500 per previous records. DISCHARGE MEDICATIONS: 1. Flexeril 5 mg 3 times a day as needed. 2. Singulair 10 mg daily. 3. Metoprolol succinate XL 50 mg daily. 4. Proscar 5 mg daily. 5. Depakote ER 1000 mg in the evening and 500 mg in the morning. 6. Bupropion 300 mg daily. 7. Triumeq combination 1 tablet daily. 8. Thiamine 100 mg p.o. daily. 9. Omeprazole 20 mg daily. 10. Nicotine gum 2 mg q.2 hours as needed. 11. Multivitamin 1 tablet daily. 12. Gabapentin 300 mg 2 times a day. 13. Folic acid 1 mg daily. REVIEW OF SYSTEMS ON THE DAY OF DISCHARGE: A 10-point review of systems is negative except as noted in the HPI. PHYSICAL EXAMINATION: The patient is alert, in no acute distress. Vital Signs : Blood pressure 125/73, heart rate 90, respiratory rate 16, O2 saturation 99% on room air with a temperature of 98.0. HEENT: The patient is atraumatic and normocephalic. PERRLA. Nonicteric sclerae. Oral mucosa is moist. Neck is supple, nontender. No JVD noted and no carotid bruit auscultated. Cardiovascular: S1, S2 present. No murmurs, gallops, or rubs. Rate and rhythm are regular. Lungs are clear bilaterally to auscultation with no wheezing, rhonchi, or rales. Abdomen is soft, nontender, and nondistended. Positive bowel sounds x4 quadrants. is deferred. Musculoskeletal: There is no clubbing, no cyanosis, no edema. He does have some generalized weakness with a shuffling gait. Otherwise, pulses are intact and he has no clubbing, no cyanosis, and no edema. Neurologic: He is alert and oriented x3. Gross motor and sensation are intact. Psychiatric: He is cooperative and appropriate. LABORATORY DATA: WBCs 8.6, RBCs 3.85, hemoglobin 14.3, hematocrit 41, platelets are 351. Sodium 138, potassium 3.9, chloride 105, CO2 28, BUN 21, creatinine 1.11, GFR 67.3, glucose 96, calcium 9.3, magnesium 2.3. Ammonia 32, protein 7.1, albumin 3.4, globulin 3.7. TSH is 0.60. DISPOSITION: The patient will be discharged to home in the care of his significant other. FOLLOWUP: The patient was instructed to follow up with AA immediately and also any other community resources for alcohol rehabilitation as needed. The patient was referred to [facility], [facility], and Akira Calvillo NP, in the next 1 to 3 days. CONDITION ON DISCHARGE: The patient was discharged in stable condition. All questions were answered. The patient stated understanding of his followups , medications, and plan at the time of discharge. KYREE TREJO NP [id number]/[facility] #: [id number] RAMA
== END 2018-05-05 14:00 | disposition home or self-care (01) | DRG 775 ==
LOC: ED 13:52 → MEDTELE 17:37 → ICU 18:04 → MED 04-26 18:00
PROVIDERS: ADMIT Hospitalist; ATTEND Student in an Organized Health Care Education/Training Program
DX: F10.231 Alcohol dependence with withdrawal delirium (principal); J69.0 Pneumonitis due to inhalation of food and vomit; J96.01 Acute respiratory failure with hypoxia; E72.20 Disorder of urea cycle metabolism, unspecified; Y90.0 Blood alcohol level of less than 20 mg/100 ml; Z21 Asymptomatic human immunodeficiency virus [HIV] infection status; I10 Essential (primary) hypertension; F32.9 Major depressive disorder, single episode, unspecified; G40.909 Epilepsy, unspecified, not intractable, without status epilepticus; G47.30 Sleep apnea, unspecified; G20 Parkinson's disease; K42.9 Umbilical hernia without obstruction or gangrene; I48.91 Unspecified atrial fibrillation; K21.9 Gastro-esophageal reflux disease without esophagitis; J30.2 Other seasonal allergic rhinitis; N40.0 Benign prostatic hyperplasia without lower urinary tract symptoms; R60.0 Localized edema; F41.9 Anxiety disorder, unspecified; Z72.89 Other problems related to lifestyle; Z87.891 Personal history of nicotine dependence; Z91.040 Latex allergy status; R32 Unspecified urinary incontinence; G31.2 Degeneration of nervous system due to alcohol; S00.03XA Contusion of scalp, initial encounter; W19.XXXA Unspecified fall, initial encounter; Y92.009 Unspecified place in unspecified non-institutional (private) residence as the place of occurrence of the external cause; E87.6 Hypokalemia
CPT/HCPCS: 36415; 36600; 70450; 71045; 72125; 80048; 80053; 80307; 80320; 81003; 81015; 82140; 82272; 82550; 82803; 83690; 83735; 83880; 84443; 84484; 85014; 85018; 85025; 85027; 86850; 86900; 86901; 87040; 87086; 87641; 87899; 93005; 99285; A9270-GY; G0480; G8987-GO-CM; G8988-GO-CI; J0456; J0696; J1644; J1940; J2060; J2250; J2405; J2543; J3411; J3480; J3490

== ENCOUNTER 2018-05-28 12:08 | Day surgery (SDC) | payer OTHER ==
[~2018-05-28 12:08] MED LIST changes: +Acetaminophen TAB* 325 MG PO PRN; -Aspirin Low Dose CHEW TAB* 81 MG PO ONE; +Buffered Lidocaine 0.9% SYRIN* 5 ML/SYR SYRINGE INTRADERM ONE; -NS 0.9% 1000 ML* 1,000 ML IV SCH
[2018-05-28] MEDS ORDERED: Midazolam* 1 MG/ML 2 ML VIAL (2 MG) ONE (13:57)
[2018-05-28 14:52] VITALS: BP 118/80
[2018-05-28] MEDS ORDERED: Lidocaine 1%* 5 ML VIAL ONE (15:47)
[2018-05-28] MEDS ORDERED: acetaZOLAMIDE TAB* 250 MG ONE (15:47)
[2018-05-28] MEDS ORDERED: Ketorolac 0.5% OPHTH (NF) 0.5 % 5 ML BTL ONE (15:47)
[2018-05-28] MEDS ORDERED: Lidocaine 2% EPI 1:200000 MPF*10-20 ML VIAL ONE (15:47)
[2018-05-28] MEDS ORDERED: Cyclopentolate 1% OPTH.SOL* 2 ML BTL ONE (15:47)
[2018-05-28] MEDS ORDERED: Povidone Iodine 5% OPTH* 30 ML BTL ONE (15:47)
[2018-05-28] MEDS ORDERED: Neomycin/Polymy/Dex OPTH.SUSP* MAXITROL 0.1% 5 ML ONE (15:47)
[2018-05-28] MEDS ORDERED: Proparacaine 0.5% OPHTH.SOL* 15 ML BTL ONE (15:47)
[2018-05-28] MEDS ORDERED: Phenylephrine 2.5% OPTH.SOL* 2 ML BTL ONE (15:47)
--- NOTE | 2018-05-29 05:13 | OP ---
DATE OF OPERATION: 05/28/18 [facility] DATE OF : 57 SURGEON: Toni Del Cid M.D. PREOPERATIVE DIAGNOSIS: Cataract, right eye. POSTOPERATIVE DIAGNOSIS: Cataract, right eye. OPERATIVE PROCEDURE: Extracapsular cataract extraction with intraocular lens implant, right eye. DESCRIPTION OF PROCEDURE: The patient was brought to the operating room after being given 1/2% Alcaine with epinephrine drops in the preoperative area. The eye was prepped and draped in the usual sterile fashion. Sterile drape and eyelid speculum were placed. Again, topical 1/2% Alcaine with epinephrine was given. A paracentesis incision was made at the 9 o'clock position with the No.75 blade. Clear cornea incision 2.2 x 2.2-mm was created at the 12 o'clock position starting at the anterior limbus using the 2.2-mm keratome. The anterior chamber was irrigated with 0.4 mL of 1% non-preservative intracameral lidocaine and filled with DisCoVisc. A capsulorrhexis was completed using the cystotome and the Utrata forceps. Hydrodissection was performed with balanced salt solution. The lens nucleus was removed with the Phacoemulsification handpiece without incident. Cortex was removed with the irrigation-aspiration handpiece. The capsular bag was re-inflated using DisCoVisc and an [id number] 20.5 implant was inserted with the shooter. The irrigation-aspiration handpiece was used to remove all residual DisCoVisc. The eye was refilled with balanced salt solution and the wound checked and found to be watertight. Topical Maxitrol drops were given. [id number]/[facility] #: [id number] MTDD
== END 2018-05-28 15:07 | disposition home or self-care (01) ==
LOC: OREAST 12:08
PROVIDERS: ATTEND Specialist
DX: H25.811 Combined forms of age-related cataract, right eye (principal); Z21 Asymptomatic human immunodeficiency virus [HIV] infection status; F41.8 Other specified anxiety disorders; I10 Essential (primary) hypertension; J30.2 Other seasonal allergic rhinitis; Z72.0 Tobacco use
CPT/HCPCS: A9270-GY; J2250; V2632

== ENCOUNTER 2018-05-29 12:08 | Observation (INO) | payer OTHER ==
[2018-05-29] MEDS ORDERED: NS 0.9% 1000 ML* 1,000 ML IV ONE ×2 (12:11→13:06)
[2018-05-29] MEDS ORDERED: Iodixanol* (CONTRAST) 320 MG/ML 100 ML SDV IV ONE (12:27)
--- NOTE | 2018-05-29 12:30 | RAD ---
INDICATION: Neurologic changes, code montez. COMPARISON: Correlation is made with a prior CT of the brain from April 23, 2018. TECHNIQUE: Contiguous axial sections of the brain were obtained from the skull base to the vertex without contrast. FINDINGS: The ventricles, cisterns and sulci are enlarged consistent with diffuse atrophy. There are small areas of decreased density in the subcortical and periventricular white matter suggestive of mild chronic small vessel ischemic changes. No mass effect is present. There is no evidence for hemorrhage. No significant focal osseous abnormality is seen. The visualized portion of the paranasal sinuses and mastoid air cells appear clear. The results of this exam were called to the referring clinician at 1226 hours. IMPRESSION: 1. NO EVIDENCE FOR GROSS ACUTE INFARCT, MASS EFFECT OR HEMORRHAGE. 2. ATROPHY AND FINDINGS CONSISTENT WITH CHRONIC SMALL VESSEL SCHEMA CHANGES.
[2018-05-29] MEDS ORDERED: LORazepam INJ* 2 MG/ML 1 ML VIAL IV PUSH ONE (12:34)
[2018-05-29] MEDS ORDERED: Thiamine IV* 100 MG/ML 2 ML VIAL IV ONE (12:34)
[2018-05-29 12:46] LABS: ABS Basophils 0 10^3/ul (0-0.2); ABS Eosinophils 0 10^3/ul (0-0.6); ABS Lymphocytes 2.5 10^3/ul (1.0-4.8); ABS Monocytes 0.7 10^3/ul (0-0.8); ABS Neutrophils 6.1 10^3/ul (1.5-7.7); ABS Nucleated RBC 0 10^3/ul; Eosinophil % 0.1 % (0-6); Hematocrit 41 % (42-52); Hemoglobin 14.3 g/dl (14.0-18.0); Lymphocyte % 26.7 % (25-47); Mean Corpuscular HGB Conc 35 g/dl (31-36); Mean Corpuscular Hemoglobin 35 pg (27-31); Mean Corpuscular Volume 102 fL (80-94); Mean Platelet Volume 7.3 um3 (7.4-10.4); Nucleated Red Blood Cells % 0; Platelet Count 233 10^3/ul (150-450); Red Blood Count 4.05 10^6/ul (4.00-5.40); Red Cell Distribution Width 13 % (10.5-15); White Blood Count 9.3 10^3/ul (3.5-10.8)
--- OUTSIDE RECORDS SUMMARY | 2018-05-29 12:53 | XMS REPORT | Continuity of Care Document ---
:1955 External Reference #:[id number] Author Name DIONICIO López Address [address] [place] [address] Care Team Providers Name Role Phone DIONICIO López Care Team Information Web Feeder Unavailable Payers Type Date Identification Numbers Payment Provider Subscriber Effective: 2016 Policy Number: [id number] [employer] [facility] Brown Samuel Expires: 2017 Group Name: [place] [address] PayID: [id number] WILMAN Lowe [address] Effective: 2017 Policy Number: [id number] Jairous [facility] Brown Samuel Expires: 2017 Group Name: [employer] [address] PayID: [id number] WILMAN Lowe [address] Effective: 2017 Policy Number: [id number] [facility] Brown Samuel Medicaid PayID: [id number] 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 Tobacco Use Start: Unknown End: Former Cigarette Smoker Unknown ETOH Use Has consumed alcohol in the past Recreational Drug Use Denies Drug Use Tobacco Use Start: Unknown End: Patient is a former Unknown smoker Enjoy Exercising Enjoys exercising Not as good lately Allergies, Adverse Reactions, Alerts Date Description Reaction Status Severity Comments 03/10/2018 Seasonal Active 03/10/2018 Hay Fever Active 03/10/2018 Latex Active Medications Medication Date Status Form Strength Qnty SIG Indications Ordering Provider Quad Cane 05/16/ Active Misc 1unit use for R53.1 Shawnti 2017 s ambulation PARAMJIT OharaP-C Azithromycin 05/16/ Hx Tablets 250mg 6tabs 2 by mouth J18.9 Shawnti 2017 - today then William Calvillo, by mouth [employer]-C 2018 daily for 4 days Cyclobenzaprine 05/09/ Active Tablets 10mg 30tab take 1/2 or Shawnti HCL 2018 s 1 tablet by Wliliam Calvillo, mouth three [employer] DEPARTMENT CHAIR-C times a day for muscle spasm will cause tiredness Zofran 04/19/ Active Tablets 4mg 14tab 1 by mouth Shawnti 2018 s every 6 William Calvillo, hours if [employer] DEPARTMENT CHAIR-C needed for nausea Shower Chair 03/25/ Active use while Shawnti 2017 showering PARAMJIT [facility] Aspercreme 02/24/ Active Cream 4% 1unit apply small Shawnti W/Lidocaine 2018 s amount to William Calvillo painful [employer] CHAIR-C spot on left rib twice daily as needed Triumeq 02/10/ Active Tablets 600-50-30 90tab 1 tab po qd nti 2017 0mg s PARAMJIT [facility] Furosemide 01/28/ Active Tablets 20mg 30tab take one R60.9 Shawnti 2018 s tablet by William Calvillo, mouth every [employer] CHA[employer]-C day if needed for leg swelling Oxycodone-Acetami 01/27/ Active Tablets 5-325mg 60tab 1 by mouth Shawnti nophen 2018 s every 4 William Calvillo, hours if [employer] DEPARTMENT CHAIR-C needed for severe chronic pain Seated Walker 01/10/ Active use with G90.3 Shawnti [address] [facility] Montelukast 10/30/ Active Tablets 10mg 90tab Take One Shawnti Sodium 2016 s Tablet By William Calvillo, Mouth AT [facility] Bedtime Metoprolol 08/13/ Active Tablets 50mg 90tab take one Shawnti Succinate ER 2013 ER 24HR s tablet by William Calvillo, mouth every [facility] day Depakote 08/13/ Active Tablets 500mg 270ta take [address] bs tablet in William Calvillo, the morning [facility] and 2 tablets at night Wellbutrin XL 08/13/ Active Tablets 300mg 90tab Take One Izabel 2013 ER 24HR s Tablet By Lamont, Mouth Every M.D., Day R.D. Bupropion HCL ER 08/13/ Active Tablets 300mg 90tab Take One Izabel (XL) 2013 ER 24HR s Tablet By Lamont, Mouth Every M.D., Day R.D. Finasteride / Active Tablets 5mg 30tab 1 tab by Gilma Dominguez s mouth every Alana, [facility] Aspercreme 02/20/ Hx Patches 4% 30uni apply one M54.5 Shawnti Lidocaine 2018 - ts patch to William Calvillo, 02/20/ low back [facility] 2017 daily if needed for pain Aspercreme 02/20/ Hx Patches 4% M54.5 Shawnti Lidocaine Max 2018 - William Calvillo, Strength 02/20/ [employer] CHAIR-C 2018 Lidocaine-Transpa 02/20/ Hx Kit 4% 1unit apply to [facility] rent Dressing 2018 - s painful William Calvillo, 03/07/ area once [employer] DE[employer]MENT CHAIR-C 2017 daily, do not leave on for more than 12 hours Lidocaine 02/13/ Hx Patches 5% 30uni apply one M54.5 Shawnti 2018 - ts patch to William Calvillo, 02/20/ the low [employer]MENT CHAIR-C 2017 back daily, remove after 12 hours Cyclobenzaprine 01/28/ Hx Tablets 5mg 60tab 1 or 2 by S39.012D Shawnti HCL 2018 - s mouth three William Calvillo, 03/10/ times a day [employer] CHAIR-C 2017 for muscle spasm, may cause drowsiness Gabapentin 01/14/ Hx Capsules 300mg 90cap 1 cap by Walter 2018 - s mouth at Rebekah 06/ bedtime x 3 III, 2017 days, if [employer] DE[employer] CHAIR-C tolerated add a second cap at dinner x 3 days. advance to tid if tolerated Carbidopa-Levodop 01/10/ Hx Tablets 25-100mg 30tab 1 po daily G90.3 Shawnti a ER 2018 - ER s RUbaldo Calvillo, 01/28/ [employer] CHAIR-C 2018 Hydrocodone-Aceta 01/09/ Hx Tablets 5-325mg 14tab 1 by mouth Thompsonwnti minophen 2018 - s q4 - 6 R. Rajinder, 01/27/ hours as [employer] DEPARTMENT CHAIR-C 2017 needed Triumeq 11/21/ Hx Tablets 600-50-30 1 tab po qd Gilma 2015 - 0mg Alana, 02/10/ [employer]MENT CHAIR-C 2018 Probiotic 11/21/ Hx Capsules Gilma 2015 - Alana, 06/06/ [employer] DE[employer]MENT CHAIR-C 2015 Xanax 11/21/ Hx Tablets 0.5mg 30tab 1/2 to 1 by Gilma 2015 - s mouth twice Alana, 06/06/ a day as [employer] DEPARTMENT CHAIR-C 2015 needed anxiety Hydrocodone-Aceta 02/11/ Hx Tablets 5-325mg 40for 1 by mouth Gilma pavon 2014 - ty q4 - 6 Alana, 06/06/ hours as [employer] DEPARTMENT CHAIR-C 2016 needed MSM 10/30/ Hx Capsules 750mg Gilma 2014 - Alana, 11/21/ [employer] DE[employer]MENT CHAIR-C 2015 Azithromycin 10/26/ Hx Tablets 250mg 6tabs take 2 486 Gilma 2014 - tablets Alana, 02/28/ today then [employer] DE[employer]MENT CHAIR-C 2014 1 tablet daily for the next 4 days Singulair 08/13/ Hx Tablets 10mg 90tab take one Gilma 2013 - s tablet by Alana, 10/30/ mouth at [employer] CHAIR-C 2016 bedtime daily Levitra 08/13/ Hx Tablets 20mg 10tab Gilma 2013 - s Alana, 05/29/ [employer] DE[employer]MENT CHAIR-C 2016 Multivitamins 08/13/ Hx Capsules Gilma 2013 - Alana, 06/06/ [employer] DEPARTMENT CHAIR-C 2016 Complera 00/ Hx Tablets 200-25-30 daily at Unknown 0000 - 0mg noon with 2015 Immunizations CPT Code Status Date Vaccine Lot # [id number] Given 05/16/2018 Influenza Virus Vaccine, Quadrivalent, 3 Yr > [id number] Quad, Preserv Free 90733 Given 05/15/2016 Influenza Virus Vaccine, Quadrivalent, 3 Yr > Quad, Preserv Free 99960 Given 06/06/2015 Influenza Virus Vaccine, Quadrivalent, 3 Yr > [id number] Quad, Preserv Free 30279 Given 06/14/2014 Influenza Virus Vaccine, Quadrivalent, 3 Yr > Quad, Preserv Free 03163 Given Unknown Influenza Virus Vaccine, Quadrivalent, 3 Yr > Quad, Preserv Free Vital Signs Date Vital Result Comment 05/20/2018 10:56am Weight 169.00 lb Weight 76.658 kg BP Systolic 118 mmHg BP Diastolic 74 mmHg Heart Rate 78 /min Body Temperature 97.1 F Respiratory Rate 16 /min O2 % BldC Oximetry 97 % 05/16/2018 2:29pm Weight 168.00 lb Weight 76.205 kg BP Systolic 112 mmHg BP Diastolic 76 mmHg Heart Rate 89 /min Body Temperature 97.7 F Respiratory Rate 15 /min O2 % BldC Oximetry 98 % 03/10/2018 9:57am Weight 177.00 lb Weight 80.287 kg BP Systolic 143 mmHg BP Diastolic 102 mmHg Heart Rate 108 /min Body Temperature 97.7 F Respiratory Rate 16 /min O2 % BldC Oximetry 97 % 02/13/2018 2:39pm Weight 180.00 lb Weight 81.648 kg BP Systolic 132 mmHg BP Diastolic 90 mmHg Heart Rate 88 /min Body Temperature 98.2 F Respiratory Rate 16 /min 01/28/2018 3:27pm BP Systolic 140 mmHg BP Diastolic 82 mmHg Heart Rate 88 /min Body Temperature 99.1 F Respiratory Rate 24 /min O2 % BldC Oximetry 97 % 10/04/2017 1:29pm Weight 189.00 lb Weight 85.730 kg BP Systolic 140 mmHg BP Diastolic 88 mmHg Heart Rate 92 /min Body Temperature 97.0 F Respiratory Rate 20 /min 05/29/2017 9:35am Weight 192.00 lb Weight 87.091 kg BP Systolic 132 mmHg BP Diastolic 80 mmHg Heart Rate 80 /min Body Temperature 97.0 F 06/06/2016 9:49am Weight 190.00 lb Weight 86.184 kg BP Systolic 115 mmHg BP Diastolic 85 mmHg Heart Rate 84 /min 02/14/2016 3:40pm Weight 185.00 lb Weight 83.916 kg BP Systolic 138 mmHg BP Diastolic 90 mmHg Heart Rate 81 /min Body Temperature 98.6 F 11/22/2015 1:28pm Weight 178.00 lb Weight 80.741 kg BP Systolic 126 mmHg BP Diastolic 84 mmHg Heart Rate 68 /min Height 67.5 inches 5'7.50" BMI (Body Mass Index) 27.5 kg/m2 09/12/2015 3:27pm Weight 188.00 lb Weight 85.277 kg BP Systolic 154 mmHg 168/100 second read BP Diastolic 98 mmHg 168/100 second read Heart Rate 80 /min Body Temperature 97.4 F 05/09/2015 9:54am Weight 185.00 lb Weight 83.916 kg BP Systolic 140 mmHg BP Diastolic 90 mmHg Heart Rate 88 /min Body Temperature 96.7 F 02/28/2015 4:03pm Weight 189.00 lb Weight 85.730 kg BP Systolic 130 mmHg BP Diastolic 82 mmHg Heart Rate 76 /min 10/26/2014 2:47pm Weight 196.00 lb Weight 88.906 kg BP Systolic 140 mmHg BP Diastolic 100 mmHg Heart Rate 99 /min Body Temperature 96.4 F O2 % BldC Oximetry 98 % 08/13/2014 1:32pm Weight 194.00 lb Weight 87.998 kg BP Systolic 120 mmHg BP Diastolic 76 mmHg Heart Rate 84 /min Height 67.5 inches 5'7.50" BMI (Body Mass Index) 29.9 kg/m2 Results Test Date Facility Test Result H/L Range Note Laboratory test [facility] B-Type 139 pg/ mL High 1 finding 8 [phone] Natriuretic Peptide BNP Comp Metabolic [facility] Sodium 138 mmol/ L 135-145 Panel 8 [phone] Potassium 3.5 mmol/L 3.5-5.0 Chloride 98 mmol/L Low 101-111 Co2 Carbon Dioxide 23 mmol/L 22-32 Anion Gap 17 mmol/L High 2-11 Glucose 112 mg/dL High 70-100 Blood Urea Nitrogen 26 mg/dL High 6-24 Creatinine 0.90 mg/dL 0.67-1.17 BUN/Creatinine Ratio 28.9 High 8-20 Calcium 9.9 mg/dL 8.6-10.3 Total Protein 7.5 g/dL 6.4-8.9 Albumin 4.0 g/dL 3.2-5.2 Globulin 3.5 g/dL 2-4 Albumin/Globulin Ratio 1.1 1-3 Total Bilirubin 1.60 mg/dL High 0.2-1.0 Alkaline Phosphatase 65 U/L 34-104 Alt 39 U/L 7-52 Ast 49 U/L High 13-39 Egfr Non- 85.8 >60 Egfr 103.8 >60 2 Laboratory test 04/23/2018 [facility] Magnesium 2.4 mg/dL 1.9-2.7 finding [phone] Lipase 162 U/L High 11.0-82.0 Troponin-I (TnI) 0.03 ng/mL <0.04 Alcohol < 10 mg/dL <10 TSH (Thyroid Stimulating Horm) 0.60 mcIU/mL 0.34-5.60 Creatine Kinase 1422 U/L High 10-223 CBC Auto Diff 04/23/2018 [facility] White Blood 9.1 10^3/uL 3.5-10.8 [phone] Count Red Blood Count 4.58 10^6/uL 4.00-5.40 Hemoglobin 16.9 g/dL 14.0-18.0 Hematocrit 49 % 42-52 Mean Corpuscular Volume 106 fL High 80-94 3 Mean Corpuscular Hemoglobin 37 pg High 27-31 Mean Corpuscular HGB Conc 35 g/dL 31-36 Red Cell Distribution Width 14 % 10.5-15 Platelet Count 158 10^3/uL 150-450 Mean Platelet Volume 8.2 um3 7.4-10.4 Abs Neutrophils 7.2 10^3/uL 1.5-7.7 Abs Lymphocytes 0.7 10^3/uL Low 1.0-4.8 Abs Monocytes 1.2 10^3/uL High 0-0.8 Abs Eosinophils 0 10^3/uL 0-0.6 Abs Basophils 0 10^3/uL 0-0.2 Abs Nucleated RBC 0 10^3/uL Granulocyte % 78.8 % 38-83 Lymphocyte % 8.0 % Low 25-47 Monocyte % 13.1 % High 0-7 Eosinophil % 0 % 0-6 Basophil % 0.1 % 0-2 Nucleated Red Blood Cells % 0.1 Cell Morphology 04/23/2018 [facility] Macrocytosis 2 + [phone] Urine DIP 02/13/2018 In House Lab Leukocytes trace Neg (607)- - Urine Nitrites neg Neg Urobilinogen 1 High Norm Total Protein, Urine neg Neg Urine pH 5.0 5-6 Urine Blood neg Neg Specific [place] 1.015 1.01-1.02 Urine Ketones positive Neg Urine Bilirubin positive Neg Urine Glucose norm Norm CBC Auto Diff 01/23/2018 [facility] White Blood 6.2 10^3/uL 3.5-10.8 [phone] Count Red Blood Count 4.75 10^6/uL 4.0-5.4 Hemoglobin 17.3 g/dL 14.0-18.0 Hematocrit 50 % 42-52 Mean Corpuscular Volume 105 fL High 80-94 Mean Corpuscular Hemoglobin 37 pg High 27-31 Mean Corpuscular HGB Conc 35 g/dL 31-36 Red Cell Distribution Width 13 % 10.5-15 Platelet Count 247 10^3/uL 150-450 Mean Platelet Volume 7.5 um3 7.4-10.4 Abs Neutrophils 4.0 10^3/uL 1.5-7.7 Abs Lymphocytes 1.2 10^3/uL 1.0-4.8 Abs Monocytes 0.9 10^3/uL High 0-0.8 Abs Eosinophils 0 10^3/uL 0-0.6 Abs Basophils 0.1 10^3/uL 0-0.2 Abs Nucleated RBC 0 10^3/uL Granulocyte % 65.0 % 38-83 Lymphocyte % 19.8 % Low 25-47 Monocyte % 13.8 % High 0-7 Eosinophil % 0.2 % 0-6 Basophil % 1.2 % 0-2 Nucleated Red Blood Cells % 0 Comp Metabolic Panel 01/23/2018 [facility] Sodium 140 mmol/L 139-145 [phone] Potassium 4.3 mmol/L 3.5-5.0 Chloride 104 mmol/L 101-111 Co2 Carbon Dioxide 25 mmol/L 22-32 Anion Gap 11 mmol/L 2-11 Glucose 92 mg/dL 70-100 Blood Urea Nitrogen 11 mg/dL 6-24 Creatinine 1.05 mg/dL 0.67-1.17 BUN/Creatinine Ratio 10.5 8-20 Calcium 8.8 mg/dL 8.6-10.3 Total Protein 7.3 g/dL 6.4-8.9 Albumin 3.7 g/dL 3.2-5.2 Globulin 3.6 g/dL 2-4 Albumin/Globulin Ratio 1.0 1-3 Total Bilirubin 0.60 mg/dL 0.2-1.0 Alkaline Phosphatase 51 U/L 34-104 Alt 7 U/L 7-52 Ast 35 U/L 13-39 Egfr Non- 71.8 >60 Egfr 92.3 >60 4 Laboratory test 01/23/2018 [facility] Lipase 76 U/L 11.0-82.0 finding [phone] Urinalysis Profile 01/23/2018 [facility] Urine Color Yellow [phone] Urine Appearance Clear Urine Specific [place] 1.019 1.010-1.030 Urine pH 5.0 5-9 Urine Urobilinogen Negative Negative Urine Ketones Trace Negative Urine Protein 1+(30 mg/dL) Negative Urine Leukocytes Negative Negative Urine Blood 2+ Negative Urine Nitrite Negative Negative Urine Bilirubin Negative Negative Urine Glucose Negative Negative Urine White Blood Cell Trace(0-5/hpf) Absent Urine Red Blood Cell 3+(>10/hpf) Absent Urine Bacteria Absent Absent Urine Hyaline Casts Present Absent Urine Culture And 01/23/2018 [facility] Urine SEE RESULT 5 Sensitivities [phone] Culture BELOW Laboratory test 10/04/2017 [facility] Vitamin B12 466 pg/mL 180-9 6, 7 finding [phone] CBC Auto Diff 10/04/2017 [facility] White Blood 6.6 10^3/uL 3.5-5 [phone] Count 0.8 Red Blood Count 4.48 10^6/uL 4.0-5.4 Hemoglobin 16.7 g/dL 14.0-18.0 Hematocrit 48 % 42-52 Mean Corpuscular Volume 108 fL High 80-94 8 Mean Corpuscular Hemoglobin 37 pg High 27-31 Mean Corpuscular HGB Conc 35 g/dL 31-36 Red Cell Distribution Width 14 % 10.5-15 Platelet Count 162 10^3/uL 150-450 Mean Platelet Volume 9 um3 7.4-10.4 Abs Neutrophils 3.3 10^3/uL 1.5-7.7 Abs Lymphocytes 2.3 10^3/uL 1.0-4.8 Abs Monocytes 0.9 10^3/uL High 0-0.8 Abs Eosinophils 0 10^3/uL 0-0.6 Abs Basophils 0 10^3/uL 0-0.2 Abs Nucleated RBC 0 10^3/uL Granulocyte % 50.5 % 38-83 Lymphocyte % 34.8 % 25-47 Monocyte % 13.8 % High 1-9 Eosinophil % 0.5 % 0-6 Basophil % 0.4 % 0-2 Nucleated Red Blood Cells % 0.1 Lyme Western 10/04/2017 [facility] Lyme Disease Negative Negative Blot [phone] IgG Ab WB Lyme Disease IgG Bands Present p28, p23, kDa Lyme Disease IgM Ab WB Negative Negative Lyme Disease IgM Bands Present p41, kDa Lyme Disease Interpretation See Comment 9 Laboratory 10/04/2017 [facility] Syphillis Nonreactive Nonreactive 10 test finding [phone] Igg W/Reflex RPR Laboratory 01/25/2017 [facility] Surgical SEE RESULT 11 test finding [phone] Pathology BELOW CBC Auto Diff 12/17/2016 [facility] White Blood 8.0 10^3/uL 3.5-10.8 [phone] Count Red Blood Count 4.74 10^6/uL 4.0-5.4 Hemoglobin [...] Cells % 0.1 Comp Metabolic Panel 12/17/2016 [facility] Sodium 137 mmol/L 133-145 [phone] Potassium 4.6 mmol/L 3.5-5.0 Chloride 102 mmol/L [...] Egfr Non- 69.0 >60 Egfr 88.7 >60 12 Lipid Profile 12/17/2016 [facility] Triglycerides 134 mg/dL 13 (Trig/Chol/HDL) [phone] Cholesterol 187 mg/dL 14 HDL Cholesterol 41.2 mg/dL 15 LDL Cholesterol 119 mg/dL 16 CD4/CD8 12/17/2016 [facility] Absolute CD45 3.03 thou /mcL 0.82-2.84 T-Cell Count [phone] Count % CD3 76 % 58-86 % CD4 38 % 32-64 % CD8 39 % 8-40 CD3 2308 cells/L 550-2202 CD4 1155 cells/L [phone] CD8 1188 cells/L 80-846 H/S Ratio 1.0 >=0.9 CD4 Reviewed By See Comment 17 Laboratory 12/17/2016 [facility] HIV-1 Rna QNT <20 copies/mL Undetected 18 test finding [phone] By PCR Sli Laboratory 11/20/2016 [facility] PSA Screening 0.877 ng/mL 0-4.0 19 test finding [phone] Lyme Western 07/12/2016 [facility] Lyme Disease Negative Negative Blot [phone] IgG Ab WB Lyme Disease IgG Bands Present No bands detecte <SEE NOTE> kDa 20 Lyme Disease IgM Ab WB Negative Negative Lyme Disease IgM Bands Present No bands detecte <SEE NOTE> kDa 21 Lyme Disease Interpretation See Comment 22 Lyme Western 06/06/2016 [facility] Lyme Disease Negative Negative Blot [phone] IgG Ab WB Lyme Disease IgG Bands Present p28,p23, kDa Lyme Disease IgM Ab WB Negative Negative Lyme Disease IgM Bands Present No bands detecte <SEE NOTE> kDa 23 Lyme Disease Interpretation See Comment 24 Laboratory test 04/27/2016 [facility] PSA Screening 1.622 ng/mL 0-4.0 25 finding [phone] Urinalysis 09/12/2015 [facility] Urine Color Yellow Profile [phone] Urine Appearance Clear Urine Specific [place] 1.019 1.010-1.030 Urine pH 5.0 5-9 Urine [...] Hyaline Casts Present Absent Urine DIP 09/12/2015 In House Lab Leukocytes NEG Neg (607)- - Urine Nitrites NEG Neg Urobilinogen NORM Norm Total Protein, Urine 100 High Neg Urine pH 5 5-6 Urine Blood +++ Neg Specific [place] 1.025 High 1.01-1.02 Urine Ketones 5 High Neg Urine Bilirubin NEG Neg Urine Glucose 100 High Norm CBC Auto Diff 03/22/2015 [facility] White Blood 5.7 10^3/uL 4.8-10.8 [phone] Count Red Blood Count 4.77 10^6/uL 4.0-5.4 Hemoglobin [...] Cells % 0 Comp Metabolic Panel 03/22/2015 [facility] Sodium 137 mmol/L 133-145 [phone] Potassium 4.4 mmol/L 3.5-5.0 Chloride 103 mmol/L [...] Egfr Non- 72.5 >60 Egfr 93.3 >60 26 Lipid Profile 03/22/2015 [facility] Triglycerides 162 mg/dL 27 (Trig/Chol/HDL) [phone] Cholesterol 157 mg/dL 28 HDL Cholesterol 36.7 mg/dL 29 LDL Cholesterol 88 mg/dL 30 Laboratory test 01/28/2015 [facility] PSA Screening 0.786 ng/mL 0-4.0 31 finding [phone] Laboratory test 10/26/2014 [facility] Rheumatoid <15 IU/mL <15 32 finding [phone] Factor Erythrocyte Sed Rate 16 mm/Hr 0-20 Yakelin (Anti-Nuclear AB) Screen Negative Negative CBC Auto Diff 10/26/2014 [facility] White Blood 8.8 10^3/uL 4.8-10.8 [phone] Count Red Blood Count 4.88 10^6/uL 4.0-5.4 Hemoglobin [...] 0-2 Nucleated Red Blood Cells % 0.3 Comp Metabolic Panel 10/26/2014 [facility] Sodium 135 mmol/L 133-145 [phone] Potassium 3.9 mmol/L 3.5-5.0 Chloride 100 mmol/L [...] Egfr Non- 55.2 >60 Egfr 71.0 >60 33 Laboratory test 10/26/2014 [facility] Uric Acid 6.5 mg/dL 4.4-7.6 finding [phone] C Reactive Protein 24.02 mg/L High < 5.00 34 Laboratory test 10/26/2014 [facility] Lyme Disease Negative Negative 35 finding [phone] Serology Vitamin D, 25 10/26/2014 [facility] 25-Hydroxy <4.0 ng/mL Hydroxy [phone] Vitamin D2 25-Hydroxy Vitamin D3 51 ng/mL 25-Hydroxy Vitamin D Total 51 ng/mL 36 Comp Metabolic Panel 10/11/2014 [facility] Sodium 138 mmol/L 133-145 [phone] Potassium 4.2 mmol/L 3.5-5.0 Chloride 103 mmol/L [...] Egfr Non- 70.2 >60 Egfr 90.3 >60 37 CBC Auto Diff 10/11/2014 [facility] White Blood 7.8 10^3/uL 4.8-10.8 [phone] Count Red Blood Count 4.77 10^6/uL 4.0-5.4 Hemoglobin [...] 0-2 Nucleated Red Blood Cells % 0.1 1 >100 to <200 pg/mL: likely compensated congestive heart failure (CHF) 200 to 400 pg/mL: likely moderate CHF >400 pg/mL: likely moderate to severe CHF 2 Because ethnic data is not always readily [...] 15-29 5 Kidney failure <15 (or dialysis) 3 Adult MCV>105,Warmed at 37 for 30 min, change minimal 4 Because ethnic data is not always readily [...] 15-29 5 Kidney failure <15 (or dialysis) 5 SEE RESULT BELOW Name: BROWN SAMUEL Chet : [address]: Bryan Hathaway MD Acct: [id number] Unit: [id number] AGE: 62 Location: ED Re01/23/18 SEX: M Status: DEP ER SPEC: [id number] MIKKI: 01/23/18-[address] [facility] [address]: Maximus DURHAM REQ: [id number] RECD: 01/23/18 STATUS: WANG BRONSON DR: [facility] Akira Calvillo ORACLE SPECIALIST _ SOURCE: URINE [facility]: ORDERED: Urine Culture Procedure Result Reported Site Urine Culture Final 01/24/18- 1623 ML No Growth (<1,000 CFU/mL) * ML - Main Lab . END OF REPORT DEPARTMENT OF PATHOLOGY, [address] [place] [address] Chris Wilde M.D. Director [facility] # [id number] Normal Range 180 to 914 Indeterminate Range 145 to 180 Deficient Range <145 8 Consistent with Previous Results Reported on 07-29-17 Specific serologic response to B. burgdorferi infection [...] screening test (e.g., EIA). Test Performed by: [facility] [email or web address] - [facility] [address] [place] [address] 10 Warning: A positive result is not useful for establishing a diagnosis of syphilis. In most situations, such a result may reflect a prior treated infection; a negative result can exclude a diagnosis of syphilis except for incubating or early primary disease. 11 SEE RESULT BELOW Name: BROWN SAMUEL : [address]: Fabian Zuñiga MD Acct: [id number] Unit: [id number] AGE: 61 Location: [facility] Re01/25/17 SEX: M Status: DEP REF SPEC: [id number] MIKKI: 01/25/17-[address]: Fabian Zuñiga MD REQ: [id number] RECD: 01/25/179802 STATUS: LINDA BRONSON DR: Gilma Alana ORACLE SPECIALIST _ ORDERED: LEVEL 4 FINAL DIAGNOSIS Colon, [...] Signed (signature on file) Chris Wilde MD 1309 END OF REPORT * ML=Testing performed at Main Lab DEPARTMENT OF PATHOLOGY, [address] [place] [address] Chris Wilde M.D. Director [facility] # [id number] 12 Because ethnic data is not always readily [...] 15-29 5 Kidney failure <15 (or dialysis) 13 Desirable <150 Borderline high 150-199 High 200-499 Very High >500 14 Desirable <200 Borderline high 200-239 High >239 15 Low <40 Desirable: 40-60 High: >60 16 Desirable: <100 mg/dL Near Optimal: 100-129 mg/dL Borderline High: 130-159 mg/dL High: 160-189 mg/dL Very High: >189 mg/dL 17 RESULT: Reviewed by: Jeremie Medina M.D., Rohith Thompson(BARBARA) ADDITIONAL INFORMATION This test was developed using an analyte specific reagent. Its performance characteristics were determined by [facility] in a manner consistent with CLIA requirements. This test has not been cleared or approved by the U.S. Food and Drug Administration. Test Performed by: [place] [address] 18 Result in log copies/mL is <1.30. HIV-1 RNA level detected is <20 copies/mL (<1.30 log copies/mL). This assay cannot accurately quantify HIV-1 RNA below this level. ADDITIONAL INFORMATION The quantification range of this assay is 20 to 10,000,000 copies/mL (1.30 log copies/mL to 7.00 log copies/mL). Testing was performed by the [employer] AmpliPrep/ROEL TaqMan HIV-1 Test version 2.0 ([employer] This test has been modified from the pipe puller's instructions. Its performance characteristics were determined by [facility] in a manner consistent with CLIA requirements. This test has not been cleared or approved by the U.S. Food and Drug Administration. Test Performed by: [facility] - [address] [address] 19 Serum levels of PSA measured using the G[employer] DXI Hybritech immunoassay should not be interpreted as absolute evidence of the presence or absence of disease. The PSA value should be used in conjunction with other pertinent clinical diagnostic procedures. The values obtained with different assay methods or kits cannot be used interchangeably. 20 No bands detected 21 No bands detected 22 Specific serologic response to B. burgdorferi infection [...] screening test (e.g., EIA). Test Performed by: [place] [address] Superintendent Quarry: Prince Samson II, M.D., Ph.D. 23 No bands detected 24 Specific serologic response to B. burgdorferi infection [...] screening test (e.g., EIA). Test Performed by: [place] [address] Superintendent Quarry: Prince Samson II, M.D., Ph.D. 25 Serum levels of PSA measured using the [employer] DXI Hybritech immunoassay should not be interpreted as absolute evidence of the presence or absence of disease. The PSA value should be used in conjunction with other pertinent clinical diagnostic procedures. The values obtained with different assay methods or kits cannot be used interchangeably. 26 Because ethnic data is not always readily [...] 15-29 5 Kidney failure <15 (or dialysis) 27 Desirable <150 Borderline high 150-199 High 200-499 Very High >500 28 Desirable <200 Borderline high 200-239 High >239 29 Low <40 Desirable: 40-60 High: >60 30 Desirable: <100 mg/dL Near Optimal: 100-129 mg/dL Borderline High: 130-159 mg/dL High: 160-189 mg/dL Very High: >189 mg/dL 31 Serum levels of PSA measured using the [employer] DXI Hybritech immunoassay should not be interpreted as absolute evidence of the presence or absence of disease. The PSA value should be used in conjunction with other pertinent clinical diagnostic procedures. The values obtained with different assay methods or kits cannot be used interchangeably. 32 Test Performed by: [place] [address] Superintendent Quarry: Pricne Samson II, M.D., Ph.D. 33 Because ethnic data is not always readily [...] 15-29 5 Kidney failure <15 (or dialysis) 34 Acute inflammation: >10.00 35 Serologic response to B. burgdorferi infection is not detected, but cannot rule out early infection during which low or undetectable antibody levels to B. burgdorferi may be present. If clinically indicated, a new serum specimen should be submitted in 7-14 days. Test Performed by: [facility] [address] Superintendent Quarry: Prince Samson II, M.D., Ph.D. 36 Interpretation: 51-80 ng/mL (increased risk of hypercalciuria) REFERENCE VALUE 25-HYDROXY D TOTAL (D2+D3) Optimum levels in the healthy population are 20-50, patients with bone disease may benefit from higher levels within this range. Test Performed by: [place] [address] Superintendent Quarry: Prince Samson II, M.D., Ph.D. 37 Because ethnic data is not always readily [...] Kidney failure <15 (or dialysis) Procedures Date Code Description Status 01/28/2018 84433 EKG, at Least 12 Leads w/Interpretation and Report Completed 01/24/2017 [id number] Colonoscopy Completed 06/06/2016 36459 EKG, at Least 12 Leads w/Interpretation and Report Completed 02/28/2015 [id number] Removal-Impacted Cerumen Completed Encounters Type Date Location Provider Dx Diagnosis Office Visit 05/16/2018 2:30p Main Office Thompsonwdeepthi Calvillo, ECONOMICS DEPARTMENT CHAIR-C R53.1 Weakness J18.9 Pneumonia, unspecified organism F10.239 Alcohol dependence with withdrawal, unspecified Z23 Encounter for immunization Office Visit 03/10/2018 9:45a Main Office Thompsonwdeepthi Calvillo, M54.5 Low back pain ECONOMICS DEPARTMENT CHAIR-C R53.1 Weakness Office Visit 02/13/2018 2:30p Main Office Thompsonwdeepthi Calvillo, M54.5 Low back pain ECONOMICS DEPARTMENT CHAIR-C R60.9 Edema, unspecified Office Visit 01/28/2018 3:15p [facility] Akira Thomas N20.0 Calculus of Storm, ECONOMICS DEPARTMENT CHAIR-C kidney R60.9 Edema, unspecified S39.012D Strain of muscle, fascia and tendon of lower back, subs Office Visit 01/10/2018 11:00a Main Office Akira Thomas M54.16 Radiculopathy , lumbar Storm, ECONOMICS DEPARTMENT CHAIR-C region G90.3 Multi-system degeneration of the autonomic nervous system Office Visit 10/04/2017 1:30p Main Office Akira Calvillo, R53.1 Weakness ECONOMICS DEPARTMENT CHAIR-C Office Visit 05/29/2017 9:45a Main Office Gilma Dennis, 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 ECONOMICS DEPARTMENT CHAIR-C uncertain behavior of skin I10 Essential (primary) hypertension E78.00 Pure hypercholesterolemia, unspecified F33.1 Major depressive disorder, recurrent, moderate Office Visit 06/06/2016 9:45a Main Office Gilma Dennis, R07.9 Chest pain, ECONOMICS DEPARTMENT CHAIR-C unspecified Office Visit 02/14/2016 3:45p Main Office Akira Thomas L74.0 Aly rubra Storm, ECONOMICS DEPARTMENT CHAIR-C Office Visit 11/22/2015 1:30p Main Office Gilma Dennis, Z00.00 Encntr for general ECONOMICS DEPARTMENT CHAIR-C adult medical exam w/o abnormal findings Office Visit 09/12/2015 3:30p Main Office Niels A09 Infectious MD David gastroenteritis and colitis, unspecified Office Visit 05/09/2015 9:45a Main Office Gilma Dennis, 553.8 Hernia Other Spec ECONOMICS DEPARTMENT CHAIR-C Sites Office Visit 02/28/2015 3:30p Main Office Gilma Dennis, 401.9 Hypertension Unspec ECONOMICS DEPARTMENT CHAIR-C 272.0 Hypercholesterolemia Pure 380.4 Impacted Cerumen Office Visit 10/26/2014 3:00p Main Office Gilma Dennis, 719.69 Joint Symptoms ECONOMICS DEPARTMENT CHAIR-C Other Multiple Sites 486 Pneumonia Organism Unspec Office Visit 08/13/2014 1:30p Main Office Gilma Dennis, V70.0 Examination General ECONOMICS DEPARTMENT CHAIR-C Medical Routine [facility] 272.0 Hypercholesterolemia Pure 401.9 Hypertension Unspec Plan of Treatment Future Appointment(s):06/19/2018 10:00 am - MENDY López-C at Main Cwrlkz1105/20/2018 - MENDY López-[id number] Encounter for other preprocedural examinationComments:medically stable for planned procedure.H25.9 Unspecified age-related cataract
--- OUTSIDE RECORDS SUMMARY | 2018-05-29 12:53 | XMS REPORT | Continuity of Care Document ---
:1955 External Reference #:[id number] Author Name DIONICIO López Address [address] [place] [address] Care Team Providers Name Role Phone DIONICIO López Care Team Information Hospital Medicine Director Unavailable Payers Type Date Identification Numbers Payment Provider Subscriber Effective: 2016 Policy Number: [id number] [employer] [facility] Brown Samuel Expires: 2017 Group Name: [place] [address] PayID: [id number] WILMAN Lowe [id number] Effective: 2017 Policy Number: [id number] [employer] [facility] Brown Samuel Expires: 2017 Group Name: [employer] [address] Pay[address]: [id number] WILMAN Lowe [id number] Effective: 2017 Policy Number: [id number] [facility] Brown Samuel Medicaid PayID: 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 [employer] Tobacco Use Start: Unknown End: Former Cigarette Smoker Unknown ETOH Use Occasionally consumes alcohol Recreational Drug Use Denies Drug Use Tobacco [...] for R53.1 Shawnti 2017 s ambulation PARAMJIT OharaP-Margo Azithromycin 05/16/ Hx Tablets 250mg 6tabs 2 by mouth J18.9 Shawnti 2017 - today then William Calvillo, by mouth CUSTOM STUDIO COORDINATOR-C 2018 daily for 4 days Cyclobenzaprine 05/09/ Active Tablets 10mg 30tab take 1/2 or Shawnti HCL 2018 s 1 tablet by William Calvillo, mouth three CUSTOM STUDIO COORDINATOR-C times a day for muscle spasm will cause tiredness Zofran 04/19/ Active Tablets 4mg 14tab 1 by mouth Shawnti 2018 s every 6 William Calvillo, hours if CUSTOM STUDIO COORDINATOR-C needed for nausea Shower Chair 03/25/ Active use while Shawnti 2017 showering PARAMJIT OharaP-C Aspercreme 02/24/ Active Cream 4% 1unit apply small Shawnti W/Lidocaine 2017 s amount to William Calvillo painful CUSTOM STUDIO COORDINATOR-C spot on left rib twice daily as needed Triumeq 02/10/ Active Tablets 600-50-30 90tab 1 tab po qd nti 2017 0mg s MENDY Ohara-C Furosemide 01/28/ Active Tablets 20mg 30tab take one R60.9 Shawnti 2018 s tablet by William Calvillo, mouth every [employer]OM STUDIO COORDINATOR-C day if needed for leg swelling Oxycodone-Acetami 01/27/ Active Tablets 5-325mg 60tab 1 by mouth Shawnti nophen 2018 s every 4 William Calvillo, hours if CUSTOM STUDIO COORDINATOR-C needed for severe chronic pain Seated Walker 01/10/ Active use with G90.3 Shawnti 2018 ambulation William Calvillo [facility] Montelukast 10/30/ Active Tablets 10mg 90tab Take One Shawnti Sodium 2016 s Tablet By William Calvillo, Mouth AT [facility] Bedtime Metoprolol 08/13/ Active Tablets 50mg 90tab take one Shawnti Succinate ER 2013 ER 24HR s tablet by William Calvillo, mouth every [facility] day Depakote 08/13/ Active Tablets 500mg 270ta take [address] tablet in William Calvillo, the morning [facility] and 2 tablets at night Wellbutrin [...] tab by Gilma Dominguez s mouth every Jeannie, day [facility]- Aspercreme 02/20/ Hx Patches 4% 30uni apply one M54.5 Shawnti Lidocaine 2018 - ts patch to William Calvillo, 02/20/ low back [facility]- 2017 daily if needed for pain Aspercreme 02/20/ Hx Patches 4% M54.5 Shawnti Lidocaine Max 2018 - William Calvillo, Strength 02/20/ CUSTOM STUDIO COORDINATOR-C 2018 Lidocaine-Transpa 02/20/ Hx Kit 4% 1unit apply to [facility] rent Dressing 2018 - s painful William Calvillo, 03/07/ area once [facility] 2017 daily, do not leave on for more than 12 hours Lidocaine 02/13/ Hx Patches 5% 30uni apply one M54.5 Shawnti 2018 - ts patch to William Calvillo, 02/20/ the low [facility] 2017 back daily, remove after 12 hours Cyclobenzaprine 01/28/ Hx Tablets 5mg 60tab 1 or 2 by S39.012D Shawnti HCL 2018 - s mouth three William Calvillo, 03/10/ times a day [employer]OM STUDIO COORDINATOR-C 2017 for muscle spasm, may cause drowsiness Gabapentin 01/14/ Hx Capsules 300mg 90cap 1 cap by Walter 2018 - s mouth at [place] 06/ bedtime x 3 III, 2018 days, if CUSTOM STUDIO COORDINATOR-C tolerated add a second cap at dinner x 3 days. advance to tid if tolerated Carbidopa-Levodop 01/10/ Hx Tablets 25-100mg 30tab 1 po daily G90.3 Shawnti jennifer ER 2018 - ER s RUbaldo Calvillo, 01/28/ CUSTOM STUDIO COORDINATOR-C 2018 Hydrocodone-Aceta 01/09/ Hx Tablets 5-325mg 14tab 1 by mouth Thompsonwnti minophen 2018 - s q4 - 6 R. Rajinder, 01/27/ hours as CUSTOM STUDIO COORDINATOR-C 2017 needed Triumeq 11/21/ Hx Tablets 600-50-30 1 tab po qd Gilma 2015 - 0mg Jeannie, 02/10/ CUSTOM STUDIO COORDINATOR-C 2017 Probiotic 11/21/ Hx Capsules Gilma 2015 - Jeannie, 06/06/ CUSTOM STUDIO COORDINATOR-C 2015 Xanax 11/21/ Hx Tablets 0.5mg 30tab 1/2 to 1 by Gilma 2015 - s mouth twice Jeannie, 06/06/ a day as CUSTOM STUDIO COORDINATOR-C 2015 needed anxiety Hydrocodone-Aceta 02/11/ Hx Tablets 5-325mg 40for 1 by mouth Gilma pavon 2014 - ty q4 - 6 Jeannie, 06/06/ hours as CUSTOM STUDIO COORDINATOR-C 2016 needed MSM 10/30/ Hx Capsules 750mg Gilma 2014 - Jeannie, 11/21/ CUSTOM STUDIO COORDINATOR-C 2015 Azithromycin 10/26/ Hx Tablets 250mg 6tabs take 2 486 Gilma 2014 - tablets Jeannie, 02/28/ today then [facility] 2014 1 tablet daily for the next 4 days Singulair 08/13/ Hx Tablets 10mg 90tab take one Gilma 2013 - s tablet by Jeannie, 10/30/ mouth at [facility] 2016 bedtime daily Levitra 08/13/ Hx Tablets 20mg 10tab Gilma 2013 - s Jeannie, 05/29/ CUSTOM STUDIO COORDINATOR-C 2016 Multivitamins 08/13/ Hx Capsules Gilma 2013 - Jeannie, 06/06/ CUSTOM STUDIO COORDINATOR-C 2016 Complera 00/ Hx Tablets 200-25-30 daily at Unknown 0000 - 0mg noon with 2015 Immunizations CPT Code Status Date Vaccine Lot # [id number] Given 05/16/2018 Influenza Virus Vaccine, Quadrivalent, 3 Yr > [id number] Quad, Preserv Free 12206 Given 05/15/2016 Influenza Virus Vaccine, Quadrivalent, 3 Yr > Quad, Preserv Free 16030 Given 06/06/2015 Influenza Virus Vaccine, Quadrivalent, 3 Yr > [id number] Quad, Preserv Free 77187 Given 06/14/2014 Influenza Virus Vaccine, Quadrivalent, 3 Yr > Quad, Preserv Free 14940 Given Unknown Influenza Virus Vaccine, Quadrivalent, 3 Yr > Quad, Preserv Free Vital Signs Date Vital Result Comment 05/16/2018 2:29pm Weight 168.00 lb Weight 76.205 [...] Test Result H/L Range Note Laboratory test [facility] B-Type 139 pg/ mL High 1 finding 8 [phone] Natriuretic Peptide BNP Comp Metabolic [facility] Sodium 138 mmol/ L 135-145 Panel 8 [phone] Potassium 3.5 mmol/L 3.5-5.0 Chloride 98 mmol/L [...] Egfr 103.8 >60 2 Laboratory test 04/23/2018 [facility] Magnesium 2.4 mg/dL 1.9-2.7 finding [phone] Lipase 162 U/L High 11.0-82.0 Troponin-I (TnI) 0.03 ng/mL <0.04 Alcohol < 10 mg/dL <10 TSH (Thyroid Stimulating Horm) 0.60 mcIU/mL 0.34-5.60 Creatine Kinase 1422 U/L High 10-223 CBC Auto Diff 04/23/2018 [facility] White Blood 9.1 10^3/uL 3.5-10.8 [phone] Count Red Blood Count 4.58 10^6/uL 4.00-5.40 [...] Blood Cells % 0.1 Cell Morphology 04/23/2018 [facility] Macrocytosis 2 + [phone] Urine DIP 02/13/2018 In House Lab Leukocytes trace Neg ([phone] - Urine Nitrites neg Neg Urobilinogen 1 High Norm Total Protein, Urine neg Neg Urine pH 5.0 5-6 Urine Blood neg Neg Specific [place] 1.015 1.01-1.02 Urine Ketones positive Neg Urine Bilirubin positive Neg Urine Glucose norm Norm CBC Auto Diff 01/23/2018 [facility] White Blood 6.2 10^3/uL 3.5-10.8 [phone] Count Red Blood Count 4.75 10^6/uL 4.0-5.4 [...] Cells % 0 Comp Metabolic Panel 01/23/2018 [facility] Sodium 140 mmol/L 139-145 [phone] Potassium 4.3 mmol/L 3.5-5.0 Chloride 104 mmol/L [...] Egfr 92.3 >60 4 Laboratory test 01/23/2018 [facility] Lipase 76 U/L 11.0-82.0 finding [phone] Urinalysis Profile 01/23/2018 [facility] Urine Color Yellow [phone] Urine Appearance Clear Urine Specific [place] 1.019 1.010-1.030 Urine pH 5.0 5-9 Urine [...] Casts Present Absent Urine Culture And 01/23/2018 [facility] Urine SEE RESULT 5 Sensitivities [phone] Culture BELOW Laboratory test 10/04/2017 [facility] Vitamin B12 466 pg/mL 180-9 6, 7 finding [phone] CBC Auto Diff 10/04/2017 [facility] White Blood 6.6 10^3/uL 3.5-7 [phone] Count 0.8 Red Blood Count 4.48 10^6/uL [...] Blood Cells % 0.1 Lyme Western 10/04/2017 [facility] Lyme Disease Negative Negative Blot [phone] IgG Ab WB Lyme Disease IgG Bands Present p28, p23, kDa Lyme Disease IgM Ab WB Negative Negative Lyme Disease IgM Bands Present p41, kDa Lyme Disease Interpretation See Comment 9 Laboratory 10/04/2017 [facility] Syphillis Nonreactive Nonreactive 10 test finding [phone] Igg W/Reflex RPR Laboratory 01/25/2017 [facility] Surgical SEE RESULT 11 test finding [phone] Pathology BELOW CBC Auto Diff 12/17/2016 [facility] White Blood 8.0 10^3/uL 3.5-10.8 [phone] Count Red Blood Count 4.74 10^6/uL 4.0-5.4 [...] Cells % 0.1 Comp Metabolic Panel 12/17/2016 [facility] Sodium 137 mmol/L 133-145 [phone] Potassium 4.6 mmol/L 3.5-5.0 Chloride 102 mmol/L [...] Egfr 88.7 >60 12 Lipid Profile 12/17/2016 [facility] Triglycerides 134 mg/dL 13 (Trig/Chol/HDL) [phone] Cholesterol 187 mg/dL 14 HDL Cholesterol 41.2 mg/dL 15 LDL Cholesterol 119 mg/dL 16 CD4/CD8 12/17/2016 [facility] Absolute CD45 3.03 thou /mcL 0.82-2.84 T-Cell Count [phone] Count % CD3 76 % 58-86 % CD4 38 % 32-64 % CD8 39 % 8-40 CD3 2308 cells/L 550-2202 CD4 1155 cells/L [phone] CD8 1188 cells/L 80-846 H/S Ratio 1.0 >=0.9 CD4 Reviewed By See Comment 17 Laboratory 12/17/2016 [facility] HIV-1 Rna QNT <20 copies/mL Undetected 18 test finding [phone] By PCR Sli Laboratory 11/20/2016 [facility] PSA Screening 0.877 ng/mL 0-4.0 19 test finding [phone] Lyme Western 07/12/2016 [facility] Lyme Disease Negative Negative Blot [phone] IgG Ab WB Lyme Disease IgG Bands Present No bands detecte <SEE NOTE> kDa 20 Lyme Disease IgM Ab WB Negative Negative Lyme Disease IgM Bands Present No bands detecte <SEE NOTE> kDa 21 Lyme Disease Interpretation See Comment 22 Lyme Western 06/06/2016 [facility] Lyme Disease Negative Negative Blot [phone] IgG Ab WB Lyme Disease IgG Bands Present p28,p23, kDa Lyme Disease IgM Ab WB Negative Negative Lyme Disease IgM Bands Present No bands detecte <SEE NOTE> kDa 23 Lyme Disease Interpretation See Comment 24 Laboratory test 04/27/2016 [facility] PSA Screening 1.622 ng/mL 0-4.0 25 finding [phone] Urinalysis 09/12/2015 [facility] Urine Color Yellow Profile [phone] Urine Appearance Clear Urine Specific [place] 1.019 1.010-1.030 Urine pH 5.0 5-9 Urine [...] 5 5-6 Urine Blood +++ Neg Specific [place] 1.025 High 1.01-1.02 Urine Ketones 5 High Neg Urine Bilirubin NEG Neg Urine Glucose 100 High Norm CBC Auto Diff 03/22/2015 [facility] White Blood 5.7 10^3/uL 4.8-10.8 [phone] Count Red Blood Count 4.77 10^6/uL 4.0-5.4 [...] Cells % 0 Comp Metabolic Panel 03/22/2015 [facility] Sodium 137 mmol/L 133-145 [phone] Potassium 4.4 mmol/L 3.5-5.0 Chloride 103 mmol/L [...] Egfr 93.3 >60 26 Lipid Profile 03/22/2015 [facility] Triglycerides 162 mg/dL 27 (Trig/Chol/HDL) [phone] Cholesterol 157 mg/dL 28 HDL Cholesterol 36.7 mg/dL 29 LDL Cholesterol 88 mg/dL 30 Laboratory test 01/28/2015 [facility] PSA Screening 0.786 ng/mL 0-4.0 31 finding [phone] Laboratory test 10/26/2014 [facility] Rheumatoid <15 IU/mL <15 32 finding [phone] Factor Erythrocyte Sed Rate 16 mm/Hr 0-20 Yakelin (Anti-Nuclear AB) Screen Negative Negative CBC Auto Diff 10/26/2014 [facility] White Blood 8.8 10^3/uL 4.8-10.8 [phone] Count Red Blood Count 4.88 10^6/uL 4.0-5.4 [...] Cells % 0.3 Comp Metabolic Panel 10/26/2014 [facility] Sodium 135 mmol/L 133-145 [phone] Potassium 3.9 mmol/L 3.5-5.0 Chloride 100 mmol/L [...] Egfr 71.0 >60 33 Laboratory test 10/26/2014 [facility] Uric Acid 6.5 mg/dL 4.4-7.6 finding [phone] C Reactive Protein 24.02 mg/L High < 5.00 34 Laboratory test 10/26/2014 [facility] Lyme Disease Negative Negative 35 finding [phone] Serology Vitamin D, 25 10/26/2014 [facility] 25-Hydroxy <4.0 ng/mL Hydroxy [phone] Vitamin D2 25-Hydroxy Vitamin D3 51 ng/mL 25-Hydroxy Vitamin D Total 51 ng/mL 36 Comp Metabolic Panel 10/11/2014 [facility] Sodium 138 mmol/L 133-145 [phone] Potassium 4.2 mmol/L 3.5-5.0 Chloride 103 mmol/L [...] 90.3 >60 37 CBC Auto Diff 10/11/2014 [facility] White Blood 7.8 10^3/uL 4.8-10.8 [phone] Count Red Blood Count 4.77 10^6/uL 4.0-5.4 [...] [address]: Bryan Hathaway MD Acct: [id number] Unit: [id number] AGE: 62 Location: ED Re01/23/18 SEX: M Status: DEP ER SPEC: [id number] MIKKI: 01/23/18-[address]: Maximus DURHAM REQ: [id number] RECD: 01/23/18-3968 STATUS: WANG BRONSON DR: [facility] Akira Calvillo ACID LEVELER _ SOURCE: URINE SPDESC: ORDERED: Urine Culture Procedure Result Reported Site Urine Culture Final 01/24/18- 1623 ML No Growth (<1,000 CFU/mL) * ML - Main Lab . END OF REPORT DEPARTMENT OF PATHOLOGY, [address] [place] [address] Chris Wilde M.D. Director [facility] # [id number] Normal Range 180 to 914 Indeterminate Range 145 to 180 Deficient Range <145 8 Consistent with Previous Results Reported on 07-29-17 9 Specific serologic response to B. burgdorferi infection [...] screening test (e.g., EIA). Test Performed by: [facility] [address], [place] [address] 10 Warning: A positive result is not useful for establishing a diagnosis of syphilis. In most situations, such a result may reflect a prior treated infection; a negative result can exclude a diagnosis of syphilis except for incubating or early primary disease. 11 SEE RESULT BELOW Name: BROWN SAMUEL : [address]: Fabian Zuñiga MD Acct: [id number] Unit: [id number] AGE: 61 Location: ENDO Re01/25/17 SEX: M Status: DEP REF SPEC: [id number] MIKKI: 01/25/17-[address] [facility] [address]: Fabian Zuñiga MD REQ: [id number] RECD: [id number]/25/[id number] STATUS: LINDA BRONSON DR: Gilma Warner ACID LEVELER _ ORDERED: LEVEL 4 FINAL DIAGNOSIS Colon, [...] performed at Main Lab DEPARTMENT OF PATHOLOGY, [address] [place] [address] Chris Wilde M.D. Director [facility] # [id number] 12 Because ethnic data is not always [...] RESULT: Reviewed by: Jeremie Medina M.D., Rohith Thompson(KYMBERLY) ADDITIONAL INFORMATION This test was developed using an analyte specific reagent. Its performance characteristics were determined by [facility] in a manner consistent with CLIA requirements. This test has not been cleared or approved by the U.S. Food and Drug Administration. Test Performed by: [place] [address] 18 Result in log copies/mL is <1.30. HIV-1 RNA level detected is <20 copies/mL (<1.30 log copies/mL). This assay cannot accurately quantify HIV-1 RNA below this level. ADDITIONAL INFORMATION The quantification range of this assay is 20 to 10,000,000 copies/mL (1.30 log copies/mL to 7.00 log copies/mL). Testing was performed by the ROEL AmpliPrep/ROEL TaqMan HIV-1 Test version 2.0 ([employer] This test has been modified from the oxidation operator's instructions. Its performance characteristics were determined by [facility] in a manner consistent with CLIA requirements. This test has not been cleared or approved by the U.S. Food and Drug Administration. Test Performed by: [facility] [place] [id number] 19 Serum levels of PSA measured using the Giselle [place] DXI Hybritech immunoassay should not be interpreted [...] screening test (e.g., EIA). Test Performed by: [place] [address] Buyer Tobacco Head: Prince Samson II, M.D., Ph.D. 23 No [...] screening test (e.g., EIA). Test Performed by: [place] [address] Buyer Tobacco Head: Prince Samson II, M.D., Ph.D. 25 Serum [...] levels of PSA measured using the Giselle Jaman DXI Hybritech immunoassay should not be interpreted as absolute evidence of the presence or absence of disease. The PSA value should be used in conjunction with other pertinent clinical diagnostic procedures. The values obtained with different assay methods or kits cannot be used interchangeably. 32 Test Performed by: [place] [address] Buyer Tobacco Head: Prince Samson II, M.D., Ph.D. 33 Because ethnic [...] submitted in 7-14 days. Test Performed by: [facility] [place] [place] [address] Buyer Tobacco Head: Prince Samson II, M.D., Ph.D. 36 Interpretation: 51-80 ng/mL (increased risk of hypercalciuria) REFERENCE VALUE 25-HYDROXY D TOTAL (D2+D3) Optimum levels in the healthy population are 20-50, patients with bone disease may benefit from higher levels within this range. Test Performed by: [place] [address] Buyer Tobacco Head: Prince Samson II, M.D., Ph.D. 37 Because [...] dialysis) Procedures Date Code Description Status 01/28/2018 08300 EKG, at Least 12 Leads w/Interpretation and Report Completed 01/24/2017 33634796 Colonoscopy Completed 06/06/2016 06432 EKG, at Least 12 Leads w/Interpretation and Report Completed 02/28/2015 97691 Removal-Impacted Cerumen Completed Encounters Type Date Location Provider Dx Diagnosis Office Visit 05/16/2018 2:30p Main Office Thompsonwdeepthi SohanUbaldo Storm, CUSTOM STUDIO COORDINATOR-C R53.1 Weakness J18.9 Pneumonia, unspecified organism F10.239 Alcohol dependence with withdrawal, unspecified Office Visit 03/10/2018 9:45a Main Office Thompsonwdeepthi Calvillo, M54.5 Low back pain CUSTOM STUDIO COORDINATOR-C R53.1 Weakness Office Visit 02/13/2018 2:30p Main Office Thompsonwntmaria ines Calvillo, M54.5 Low back pain CUSTOM STUDIO COORDINATOR-C R60.9 Edema, unspecified Office Visit 01/28/2018 3:15p [facility] Akira RUbaldo N20.0 Calculus of Storm, CUSTOM STUDIO COORDINATOR-C kidney R60.9 Edema, unspecified S39.012D Strain of muscle, fascia and tendon of lower back, subs Office Visit 01/10/2018 11:00a Main Office Akira Thomas M54.16 Radiculopathy , lumbar Storm, CUSTOM STUDIO COORDINATOR-C region G90.3 Multi-system degeneration of the autonomic nervous system Office Visit 10/04/2017 1:30p Main Office Akira Calvillo, R53.1 Weakness CUSTOM STUDIO COORDINATOR-C Office Visit 05/29/2017 9:45a Main Office Gilma Warner, 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 I10 Essential (primary) hypertension E78.00 Pure hypercholesterolemia, unspecified F33.1 Major depressive disorder, recurrent, moderate Office Visit 06/06/2016 9:45a Main Office Gilma Warner, R07.9 Chest pain, CUSTOM STUDIO COORDINATOR-C unspecified Office Visit 02/14/2016 3:45p Main Office Akira Thomas L74.0 Miliaria rubra Storm, CUSTOM STUDIO COORDINATOR-C Office Visit 11/22/2015 1:30p Main Office Gilma Warner, Z00.00 Encntr for general CUSTOM STUDIO COORDINATOR-C adult medical exam w/o abnormal findings Office Visit 09/12/2015 3:30p Main Office Niels Rosario9 Infectious MD David gastroenteritis and colitis, unspecified Office Visit 05/09/2015 9:45a Main Office Gilma Warner, 553.8 Hernia Other Spec CUSTOM STUDIO COORDINATOR-C Sites Office Visit 02/28/2015 3:30p Main Office Gilma Warner, 401.9 Hypertension Unspec CUSTOM STUDIO COORDINATOR-C 272.0 Hypercholesterolemia Pure 380.4 Impacted Cerumen Office Visit 10/26/2014 3:00p Main Office Gilma Warner, 719.69 Joint Symptoms CUSTOM STUDIO COORDINATOR-C Other Multiple Sites 486 Pneumonia Organism Unspec Office Visit 08/13/2014 1:30p Main Office Gilma Warner, V70.0 Examination General CUSTOM STUDIO COORDINATOR-C Medical Routine AT [facility] Care Facility 272.0 Hypercholesterolemia Pure 401.9 Hypertension Unspec Plan of Treatment Future Appointment(s):05/20/2018 10:45 am - MENDY López-C at Main [id number]/16/2018 - Akira Calvillo, CUSTOM STUDIO COORDINATOR-CR53.1 WeaknessNew Medication:Quad Cane - use for ambulationNew Therapy:Comments:will refer to PT, has had difficulty getting into a therapist. script for quad cane, gait has improved since hospitalization. ?depakote vs alcohol relatedFollow up:1 sztplL94.9 Pneumonia, unspecified organismNew Medication:Azithromycin 250 mg - 2 by mouth today then 1 by mouth daily for 4 daysComments:still has RLL rales, will treat with oxoykrwoqA64.239 Alcohol dependence with withdrawal, unspecifiedComments: congrats on one month of sobriety, continue to use local supports and AA
--- NOTE | 2018-05-29 12:58 | ED ---
Neurological HPI - HPI Summary HPI Summary: A 62 y/o male BIBA was hypertensive and unable to ambulate on the scene per EMS. Patient believes he is having a CVA. It is unclear if the patient fell or not. According to the patient the onset was at 4:30 but he contradicts the time of onset multiple times. Anyi menchaca was called at 12:02 10 [address] [employer] Dr. Garrett, neuro, was at bedside upon arrival. The patient was screaming in distress. He denies any CP or SOB, drug or EtOH use, new medications, fever or Hx of seizures. He has a PMHx of neuropathy and received cataract surgery yesterday. He has an abrasion to the right of the midline on the back. The patient is a former smoker, he states he quit alcohol and marijuana 5 weeks ago but he also stated that he quit at different times, so again he contradicts himself. He states that he would urinate on the couch last night because he would not be able to get to the bathroom in time. - History of Current Complaint Chief Complaint: EDNeurologicalDeficit Stated Complaint: ANYI MENCHACA Time Seen by Provider: 05/29/18 12:11 Hx Obtained From: Patient Onset/Duration: Sudden Onset, Started hours ago Timing: Constant Onset Severity: Mild Current Severity: Mild Pain Intensity: 8 Pain Scale Used: 0-10 Numeric Associated Signs and Symptoms: Positive: Negative - CP or SOB, drug or EtOH use , new medications, fever or Hx of seizures - Additional Pertinent History Primary Care Physician: [id number] - Allergy/Home Medications Allergies/Adverse Reactions: Allergies Allergy/AdvReac Type Severity Reaction Status Date / Time latex Allergy Hives Verified 05/28/18 12:48 Seasonal Allergy Congestion Uncoded 05/28/18 12:48 Home Medications: Home Medications Cyclobenzaprine TAB* [Flexeril 10 MG TAB*] 5 - 10 mg PO TID PRN 05/29/18 [ History Confirmed 05/29/18] Furosemide TAB* [Lasix TAB*] 20 mg PO QAM PRN 05/29/18 [History Confirmed ] Ibuprofen TAB* [Advil TAB*] 200 - 400 mg PO Q6H PRN 05/29/18 [History Confirmed 05/29/18] Ketorolac 0.5% OPHTH (NF) 1 drop RIGHT EYE TID 05/29/18 [History Confirmed 05/29] Lidocaine [Aspercreme Lidocaine Max] 4 % TOPICAL BID PRN 05/29/18 [History Confirmed 05/29/18] Ondansetron TAB* [Zofran 4 MG Tab*] 4 mg PO Q6H PRN 05/29/18 [History Confirmed 05/29/18] oxyCODONE/Acetamin 5/325 MG* [Percocet 5/325 TAB*] 1 tab PO Q4H PRN 05/29/18 [ History Confirmed 05/29/18] prednisoLONE 1% OPHTH.SUSP* [Pred Forte 1%*] 1 drop RIGHT EYE TID 05/29/18 [ History Confirmed 05/29/18] PMH/Surg Hx/FS Hx/Imm Hx Endocrine/Hematology History: Denies: Hx Diabetes, Hx Thyroid Disease Cardiovascular History: Reports: Hx Hypertension Denies: Hx Pacemaker/ICD Respiratory History: Reports: Hx Sleep Apnea - re-evaluation 05/2013 Denies: Hx Asthma, Hx Chronic Obstructive Pulmonary Disease (COPD) GI History: Reports: Hx Gastroesophageal Reflux Disease Denies: Hx Ulcer History: Reports: Hx Benign Prostatic Hyperplasia Denies: Hx Renal Disease Musculoskeletal History: Reports: Hx Arthritis - GENERALIZED, Hx Back Problems - hx of, Other Musculoskeletal History - Chronic lower extremity edema Sensory History: Reports: Hx Cataracts Denies: Hx Contacts or Glasses, Hx Hearing Aid Opthamlomology History: Reports: Hx Cataracts Denies: Hx Contacts or Glasses Neurological History: Reports: Hx Seizures Psychiatric History: Reports: Hx Anxiety, Hx Depression Denies: Hx Panic Disorder - Surgical History Surgery Procedure, Year, and Place: Left WRIST fracture repair X2 HARDWARE REMOVED; Hx Anesthesia Reactions: No - Immunization History Date of Influenza Vaccine: 04/2016 Infectious Disease History: No Infectious Disease History: Reports: Hx Human Immunodeficiency Virus (HIV) Denies: Hx Hepatitis, History Other Infectious Disease, Traveled Outside the [place] in Last 30 Days - Family History Known Family History: Negative: Cardiac Disease - Social History Alcohol Use: Daily Alcohol Amount: 2 glasses of wine, vodka Hx Substance Use: No Substance Use Type: Reports: None Hx Tobacco Use: Yes Smoking Status (MU): Former Smoker Type: Cigarettes Amount Used/How Often: occasional Have You Smoked in the Last Year: Yes Review of Systems Constitutional: Other - Trouble ambulating Negative: Fever, Chills Negative: Erythema Negative: Sore Throat Negative: Chest Pain Negative: Shortness Of Breath, Cough Negative: Abdominal Pain, Vomiting, Nausea Negative: dysuria, hematuria Negative: Myalgia, Edema Negative: Rash Neurological: Negative - dizziness, Other - aphasia All Other Systems Reviewed And Are Negative: Yes Physical Exam - Summary Physical Exam Summary: Constitutional: Well-developed, Well-nourished, Alert. (-) Distressed. Generally uncooperative. vigorously shakes the bed. Skin: Abrasion to the right of the midline on the back, Warm, Dry HENT: Normocephalic; Atraumatic Eyes: Conjunctiva normal, right pupil is dilated 8mm, left is 5mm Neck: Musculoskeletal FROM normal neck. (-) JVD, (-) Stridor, (-) Tracheal deviation Cardio: Rhythm regular, rate normal, Heart sounds normal; Intact distal pulses; The pedal pulses are 2+ and symmetric. Radial pulses are 2+ and symmetric. (-) Murmur Pulmonary/Chest wall: Bibasilar crackles. (-) Respiratory distress, (-) Wheezes , (-) Rales Abd: Soft. (-) Tenderness, (-) Distension, (-) Guarding, (-) Rebound Musculoskeletal: (-) Edema, FROM Lymph: (-) Cervical adenopathy Neuro: Slurring of speech, Alert, Oriented x3, Strength normal, Cranial nerves II-XII are grossly intact. (-) Dysmetria, (-) Nystagmus, (-) Ataxia by finger to nose testing, (-) Sensory deficit, deficits are distractable Psych: Mood and affect Normal GCS: 15 Triage Information Reviewed: Yes Vital Signs On Initial Exam: Initial Vitals Temp Pulse Resp BP Pulse Ox 98.7 F 114 20 169/105 93 05/29/18 12:11 05/29/18 12:11 05/29/18 12:11 05/29/18 12:11 05/29/18 12:11 Vital Signs Reviewed: Yes Diagnostics - Vital Signs Vital Signs Temp Pulse Resp BP Pulse Ox 05/29/18 12:11 98.7 F 114 20 169/105 93 - Laboratory Lab Results: Lab Results 05/29/18 Range/Units 12:32 WBC 9.3 (3.5-10.8) 10^3/ul RBC 4.05 (4.00-5.40) 10^6/ul Hgb 14.3 (14.0-18.0) g/dl Hct 41 L (42-52) % MCV 102 H (80-94) fL MCH 35 H (27-31) pg MCHC 35 (31-36) g/dl RDW 13 (10.5-15) % Plt Count 233 (150-450) 10^3/ul MPV 7.3 L (7.4-10.4) um3 Neut % (Auto) 65.6 (38-83) % Lymph % (Auto) 26.7 (25-47) % [place] % (Auto) 7.2 H (0-7) % Eos % (Auto) 0.1 (0-6) % Baso % (Auto) 0.4 (0-2) % Absolute Neuts (auto) 6.1 (1.5-7.7) 10^3/ul Absolute Lymphs (auto) 2.5 (1.0-4.8) 10^3/ul Absolute Monos (auto) 0.7 (0-0.8) 10^3/ul Absolute Eos (auto) 0 (0-0.6) 10^3/ul Absolute Basos (auto) 0 (0-0.2) 10^3/ul Absolute Nucleated RBC 0 10^3/ul Nucleated RBC % 0 Result Diagrams: 05/29/18 12:32 05/29/18 12:32 Lab Statement: Any lab studies that have been ordered have been reviewed, and results considered in the medical decision making process. - Radiology CXR Radiology Interpretation Completed By: Radiologist - HYPERINFLATION. NO ACTIVE CARDIOPULMONARY DISEASE. This report has been reviewed by the ED physician. - CT CTA Head/neck CT Interpretation Completed By: Radiologist - 1. ATHEROSCLEROSIS. 2. NO INTERNAL CAROTID ARTERY STENOSIS BY NASCET CRITERIA. 3. NO ANEURYSM, VASCULAR MALFORMATION, OCCLUSION, OR STENOSIS OF THE VISUALIZED INTRACRANIAL CIRCULATION. This report has been reviewed by the ED physician. Brain CT Interpretation Completed By: Radiologist - 1. NO EVIDENCE FOR GROSS ACUTE INFARCT, MASS EFFECT OR HEMORRHAGE. 2. ATROPHY AND FINDINGS CONSISTENT WITH CHRONIC SMALL VESSEL SCHEMA CHANGES. 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 Non-Paretic Hand: Both Correctly Best Gaze (Only Horizontal Eye Movement): Normal Visual Field Testing: No Visual Loss Facial Paresis-Pt to Smile & Close Eyes or Grimace Symmetry: Normal/Symmetrical Motor Function - Right Arm: No Drift-Holds 10 Seconds Motor Function - Left Arm: No Drift-Holds 10 Seconds Motor Function - Right Leg: No Drift-Holds 10 Seconds Motor Function - Left Leg: No Drift-Holds 10 Seconds Limb Ataxia-Must be out of Proportion to Weakness Present: Absent Sensory (Use Pinprick to Test Arms/Legs/Trunk/Face): Normal Best Language (Describe Picture, Name Items): No Aphasia Dysarthria (Read Several Words): Slurs Some Words Extinction and Inattention: No Abnormality Total Score: 1 Course/Dx - Course Course Of Treatment: A 62 y/o male BIBA was hypertensive and unable to ambulate on the scene per EMS. Patient believes he is having a CVA. It is unclear if the patient fell or not. According to the patient the onset was at 4:30 but contradicts the time of onset multiple times. Anyi menchaca was called at 12:02 [address] [employer] Dr. Garrett, neuro, was at bedside upon arrival. The patient was screaming in distress. He denies any CP or SOB, drug or EtOH use, new medications, fever or Hx of seizures. He has a PMHx of neuropathy and received cataract surgery yesterday. He has an abrasion to the right of the midline on the back. The patient is a former smoker, he states he quit alcohol and marijuana 5 weeks ago but he also stated that he quit at different times, so again he contradicts himself. He states that he would urinate on the couch last night because he would not be able to get to the bathroom in time. He has an abrasion to the right of the midline on the back. The patient does not follow commands, seems to have FROM and bibasilar crackles. His right pupil is dilated 8mm and left pupil dilated 5 mm. A CXR revealed HYPERINFLATION. NO ACTIVE CARDIOPULMONARY DISEASE. A CTA head/neck revealed, ATHEROSCLEROSIS, NO INTERNAL CAROTID ARTERY STENOSIS BY NASCET CRITERIA, NO ANEURYSM, VASCULAR MALFORMATION, OCCLUSION, OR STENOSIS OF THE VISUALIZED INTRACRANIAL CIRCULATION. A CT Brain revealed NO EVIDENCE FOR GROSS ACUTE INFARCT, MASS EFFECT OR HEMORRHAGE and ATROPHY AND FINDINGS CONSISTENT WITH CHRONIC SMALL VESSEL SCHEMA CHANGES. An EKG showed sinus tachycardia at 107bpm, no STEMI. Clinical signs of withdrawl delirium, HTN, tachycardia and a past medical history of alcohol abuse. Suspect alcohol encephalopathy, conversion syndrome, delirium tremens. Dr. Garrett contacted the hospitalist and the patient will be admitted. Final dx: delirium tremens. - Differential Dx Differential Diagnoses Neuro: Positive: Other - alcohol encephalopathy, conversion syndrome, delirium tremens - Diagnoses Provider Diagnoses: Delirium tremens - Critical Care Time Critical Care Time: 30-74 min - 45 mins Discharge - Sign-Out/Discharge Documenting (check all that apply): Patient Departure - Admitted - Discharge Plan Condition: Stable Disposition: ADMITTED TO [facility] - Attestation Statements Document Initiated by Scribe: Yes Documenting Scribe: Sree Phan Provider For Whom Scribe is Documenting (Include Credential): Paras Villa MD Scribe Attestation: Sree Núñez, scribed for Paras Villa MD on 05/29/18 at 1548.
[2018-05-29] MEDS ORDERED: Thiamine IV* 100 MG in NS 0.9% 100 ML* 100 ML IV ONE (13:00)
--- NOTE | 2018-05-29 13:00 | RAD ---
HISTORY: CODE MENCHACA COMPARISONS: Head CT dated May 29, 2018 TECHNIQUE: Multiple contiguous axial CT scans were obtained of the head and neck after the administration of nonionic intravenous contrast timed to the systemic arterial phase of contrast enhancement. Coronal and sagittal multiplanar reformations are submitted for review. Multiple 3-D maximum intensity projection reconstructions are also submitted for review. FINDINGS: CTA NECK: AORTIC ARCH: There is a normal three-vessel branching pattern of the aortic arch. There is no ostial or proximal stenosis of the cephalic great vessels. RIGHT VERTEBRAL ARTERY: The right vertebral artery is patent along its course, without stenosis. LEFT VERTEBRAL ARTERY: The left vertebral artery is patent along its course, without stenosis. DOMINANCE: The left vertebral artery is dominant. RIGHT COMMON CAROTID ARTERY: The right common carotid artery is patent. The right carotid bifurcation occurs at C3-C4 RIGHT INTERNAL CAROTID ARTERY: There is atheromatous disease of the right carotid bifurcation, without right internal carotid artery stenosis by NASCET criteria. RIGHT EXTERNAL CAROTID ARTERY: The right external carotid artery is unremarkable. LEFT COMMON CAROTID ARTERY: The left common carotid artery is patent. The left carotid bifurcation occurs at C3-C4 LEFT INTERNAL CAROTID ARTERY: There is atheromatous disease of the left carotid bifurcation, without left internal carotid artery stenosis by NASCET criteria. LEFT EXTERNAL CAROTID ARTERY: The left external carotid artery is unremarkable. VENOUS CIRCULATION: The venous system is unremarkable. SALIVARY GLANDS: The parotid glands, submandibular glands, sublingual glands are normal. NASAL CAVITY/NASOPHARYNX: The nasal cavity and nasopharynx are normal. ORAL CAVITY/OROPHARYNX: The oral cavity is obscured by streak artifact from dental amalgam. The visualized oral cavity and oropharynx are unremarkable. LARYNGEAL APPARATUS/HYPOPHARYNX: The laryngeal apparatus and hypopharynx are normal. UPPER AIRWAY/UPPER ESOPHAGUS: The visualized upper airway and esophagus are normal. LUNG APICES: The lung apices are clear. THYROID GLAND: The thyroid gland is normal. LYMPH NODES: There is no lymphadenopathy by size criteria. BONES AND SOFT TISSUES: No bone or soft tissue abnormalities are noted. CTA HEAD: INTRACRANIAL CIRCULATION: There is no aneurysm, vascular malformation, occlusion, or stenosis of the visualized intracranial circulation. The anterior communicating artery complex is clear. The posterior communicating arteries are diminutive, if present. VENOUS CIRCULATION: The venous system is unremarkable. PERFUSION: There is no obvious parenchymal perfusion deficit. HEMORRHAGE/INFARCT: There is no hemorrhage or acute infarct. MASSES/SHIFT: There is no mass or shift. EXTRA-AXIAL SPACES: There are no extra-axial fluid collections. SULCI AND VENTRICLES: There is mild diffuse and proportional enlargement of the sulci and ventricles. CEREBRUM: There is mild hypoattenuation of the periventricular and subcortical white matter. BRAINSTEM: There are no focal parenchymal abnormalities. CEREBELLUM: There are no focal parenchymal abnormalities. PARANASAL SINUSES: The paranasal sinuses are clear. ORBITS: The orbits are unremarkable. BONES AND SOFT TISSUE: There is a scoliotic curvature of the spine. OTHER: There is no abnormal enhancement. IMPRESSION: 1. ATHEROSCLEROSIS. 2. NO INTERNAL CAROTID ARTERY STENOSIS BY NASCET CRITERIA. 3. NO ANEURYSM, VASCULAR MALFORMATION, OCCLUSION, OR STENOSIS OF THE VISUALIZED INTRACRANIAL CIRCULATION. CPT II Codes: 3100F
[2018-05-29 13:01] LABS: INR 0.94 (0.77-1.02)
--- NOTE | 2018-05-29 13:23 | RAD ---
HISTORY: Neurological Changes/Code Clark COMPARISONS: April 24, 2018 VIEWS: 1: frontal AP view of the chest at 1:12 PM FINDINGS: LINES AND TUBES: None. CARDIOMEDIASTINAL SILHOUETTE: The cardiomediastinal silhouette is normal for portable technique. PLEURA: The costophrenic angles are sharp. No pleural abnormalities are noted. LUNG PARENCHYMA: There is hyperinflation. ABDOMEN: The upper abdomen is clear. There is no subphrenic gas. BONES AND SOFT TISSUES: No bone or soft tissue abnormalities are noted. IMPRESSION: HYPERINFLATION. NO ACTIVE CARDIOPULMONARY DISEASE.
[2018-05-29] MEDS ORDERED: Ondansetron TAB* 4 MG PO PRN (13:33)
[2018-05-29 13:56] LABS: Urine Appearance Clear; Urine Blood 1+ (Negative); Urine Color Straw; Urine Ketones Negative (Negative); Urine Protein Negative (Negative); Urine Red Blood Cell Trace(0-2/hpf) (Absent); Urine Specific Gravity 1.029 (1.010-1.030); Urine Urobilinogen Negative (Negative); Urine White Blood Cell Absent (Absent)
[2018-05-29] MEDS ORDERED: Ketorolac 0.5% OPHTH (NF) 0.5 % 5 ML BTL RIGHT EYE SCH (14:00)
[2018-05-29] MEDS ORDERED: hydrALAZINE IV* 20 MG/ML VIAL IV SLOW PU PRN (14:57)
[2018-05-29] MEDS: Heparin VIAL(*) 5000 UNITS/ML VIAL (FIVE THOUSAND) SUBCUT SCH ×2 (16:10→21:14)
[2018-05-29] MEDS: prednisoLONE 1% OPHTH.SUSP* 5 ML OPHTH.SUSP RIGHT EYE SCH ×2 (16:17→21:14)
[2018-05-29 17:11] LABS: Urine Appearance Clear; Urine Blood Negative (Negative); Urine Color Straw; Urine Ketones Negative (Negative); Urine Protein Negative (Negative); Urine Specific Gravity 1.016 (1.010-1.030); Urine Urobilinogen Negative (Negative)
[2018-05-29] MEDS ORDERED: NS 0.9% 100 ML* 100 ML ONE (17:13)
[2018-05-29] MEDS ORDERED: Divalproex DR TAB(*) 500 MG PO SCH (18:00)
--- NOTE | 2018-05-29 22:05 | CONS ---
CONSULTATION REPORT: DATE OF CONSULT: 05/29/18 REASON FOR CONSULT: Activated Code Clark. CHIEF COMPLAINT: Abnormal movement, generalized fatigue, inability to ambulate. HISTORY OF PRESENT ILLNESS: Mr. Jermaine Jason is a 62-year-old right-handed gentleman with past medical history significant for alcohol abuse who reports cessation 5 weeks ago, hypertension, history of HIV with unknown recent CD4 count, who is status post right cataract surgery done 05/28/18 and is on ketorolac and Maxitrol eye drops, and questionable history of seizure disorder. He is on Depakote for a mood disorder. It is unclear when he had his last seizure. The patient was evaluated by Dr. Colin Stewart for history of alcohol related neuropathy, but also concerned for parkinsonism. Dr. Stewart was suspecting that the patient may have underlying normal pressure hydrocephalus, but ordered MRI of the cervical and thoracic spine, which the patient had completed in February 2018. He had an MRI of the brain that showed slightly enlarged ventricles. The goal was to slowly wean him off Depakote due to concern of increased tremors and parkinsonism. The patient presented to [facility] today due to complaints of weakness in both legs. The patient woke up at 4:30 a.m. and asked his partner, Saul, who I personally spoke to today and provided me with further information because the patient is slightly confused. Saul stated that he got up and helped his partner use the urinal. He was having trouble dressing himself. He kept repeating things over and over. Apparently, the patient got home last night at 4 p.m. He watched movies and went to sleep at 7 p.m. He was in normal state of health around that time. With further discussion today, the patient stated that he stopped taking his Depakote regularly. He has not had any seizure activity. He usually takes about 500/1000 mg at night time 3-4 times a week. Currently, the patient is resting comfortably. When stimulating his hands or feet, the patient yells out and screams due to pain. He is not complaining of any focal weakness. He is alert to himself and place, but not time. I reviewed the patient's previous history. Apparently, the patient was admitted and hospitalized for delirium, tremors, and alcohol withdrawal in late March 2018. He required almost 2 weeks of hospitalization. PAST MEDICAL HISTORY: 1. HIV. 2. Atrial fibrillation. 3. Hypertension. 4. Former history of alcohol abuse, stopped 5 weeks ago. 5. Depression. 6. Seizure disorder with no evidence of recent seizures. PAST SURGICAL HISTORY: 1. Left wrist fracture. 2. Recent cataract surgery done 05/28/18. MEDICATIONS: 1. Bupropion 300 mg daily. 2. Valproic acid 500 mg in the morning and 1000 mg in the evening. 3. Metoprolol. 4. Ketorolac eye drops. 5. Maxitrol drops. ALLERGIES: LATEX. FAMILY HISTORY: No family history of stroke or seizures. SOCIAL HISTORY: The patient is unemployed, lives with his partner. He quit drinking alcohol and smoking. Utilizing tobacco 5 weeks ago. He has history of former cocaine and marijuana use, but he denied recent use. REVIEW OF SYSTEMS: A 14-point review of systems was obtained and otherwise negative except for what was mentioned as per HPI. PHYSICAL EXAM: Vitals: Temperature of 98.7, heart rate of 114, respiratory rate of 20, oxygen saturation 93, blood pressure 169/105. Please keep in mind that his blood pressure via EMS was 195/110. General: Mildly ill-appearing man who is in slight distress especially when stimulated by touching his feet. He has some crayon or marker drawing on the right forehead probably from the recent surgery. Head: Atraumatic, normocephalic without any obvious abnormality. Eyes: Conjunctivae/cornea are clear. Neck: Supple and symmetrical. No carotid bruit. There is no nuchal rigidity. Lungs: Clear to auscultation bilaterally. Cardiovascular: Regular rate and rhythm. Normal S1, S2. Extremities: Normal range of motion with no cyanosis. Skin: No skin lesions or lacerations. Psych: Affect is flat and depressed mood. Mental Status: The patient is awake, alert, and oriented to person and place, but not time. He is in psychomotor slowing. He has mild flaccid dysarthria, but no aphasia. Cranial Nerves: Normal confrontation testing bilaterally. The pupil is dilated on the right measuring 6 mm with partial constriction to 5 mm and normal 4 mm on the left constricting to 3 mm. No facial asymmetry. Sensation is intact on forehead, cheeks, and jaw region bilaterally. He is able to hear throughout the history process. Symmetric palatal elevation. Normal strength against resistance. Tongue is symmetrical in midline with no atrophy or fasciculation. Motor: Right/left; no abnormal movements. No pronator droop. Slightly increased tone in upper and lower extremities bilaterally. He has sudden started like jerking movements that randomly occur. He shouts out during these movements. Shoulder abduction 5/5. Elbow flexion 5/5 and extension 5/5. Wrist flexion 5/5 and extension 5/5. Finger flexion and abduction is 4/5. Hip flexion is 4/4, abduction 4/4. Knee flexion 4/4, extension 4/4. Ankle dorsiflexion 4/4, plantar flexion 4/4. Great toe extension 3/3. Reflexes right/left brachioradialis 1/1, biceps 1/1, triceps 1/1 , patella 2/2, ankle 0/0, plantar difficult to perform due to significant amount of hyperesthesias. Sensation: Distal to proximal sensory gradient to light touch and temperature sensation demarcated at the knees bilaterally. We are unable to examine the feet due to severe hyperesthesias. Coordination: Normal [id number] bilaterally. Gait was not assessed. DIAGNOSTIC STUDIES/LAB DATA: Imaging studies: CT head without contrast today showed evidence of cerebellar atrophy, but no acute intracranial abnormalities. He had a CTA head and neck completed today that has not been read yet. However, I do not appreciate any large vessel occlusion. I also reviewed the patient's cervical and thoracic spine completed on 04/14/18 and 03/04/18 respectively. He has scoliosis. He has multilevel degenerative disk disease with no evidence of spinal cord compression at the cervical or lumbar spine. He has no abnormal cord signal. I also reviewed the MRI of the brain completed on 01/09/18 that showed diffuse involutional change, no abnormal enhancement. There is no evidence of mass lesions. He does have slight enlargement of the lateral ventricles. 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 Laboratory data: WBC 9.3, hemoglobin 14.3, hematocrit of 41, and platelet count of 233. BMP is pending. ASSESSMENT: Mr. Jermaine Jason is a 62-year-old man with history of hypertension, human immunodeficiency virus, seizure disorder with no recent reported seizures , former alcohol abuse who has been sober for 5 weeks who is status post cataract surgery yesterday who presents with confusion, inability to ambulate, jerking like movements and severe paresthesias. 1. Acute mild/moderate encephalopathy manifesting as delirium with an unknown etiology at this point. I suspect the patient has combination of either toxic metabolic versus hypertensive encephalopathy. The fact that the patient had, although the eye drop medication that he was prescribed are not known to cause confusion, these have been the only new recent medications that have been added to his regimen since yesterday. I wonder if this is maybe causing a reaction versus elevation in his blood pressure causing him to be confused. We also cannot entirely rule out seizures with postictal confusion and psychosis versus Wernicke encephalopathy. The latter is less likely given the patient reports no history of alcohol use. I do not think he has a stroke since he does not have any lateralizing neurological deficits. We did assess for stroke initially given the CT and CTA, which did not show any acute changes. Other differential diagnosis include medication toxicity either valproic acid and bupropion causing serotonin like reaction. 2. Seizure disorder. 3. Severe peripheral neuropathy of alcohol type. 4. History of gait imbalance most likely related to neuropathy and alcohol cerebellar degeneration. 5. Questionable ventriculomegaly is being evaluated by Dr. Stewart as an outpatient. I do not think this is the presentation of normal pressure hydrocephalus given the acute onset of symptoms this morning. RECOMMENDATIONS: Please order the following labs, ammonia, TSH, vitamin B12, and valproic acid level. Please start the patient on thiamine 500 mg IV x1 and continue on 100 mg p.o. daily thereafter. Please obtain an EEG to rule out any frontal lobe seizures. We will hold off on the MRI unless the patient's cognition does not improve. If possible hold off on the eye drops, at least Ketorolac. Continue the Depakote at a dose of 500 mg in the morning and 1000 mg at night time. Please keep the patient normotensive. Please consult physical therapy for further evaluation. TIME SPENT: I spent a total of 60 minutes of critical care time and greater than 50% that was spent directly reviewing the medical chart, obtaining history , examining the patient, and discussing the treatment plan with the patient and his partner, Saul via phone. The patient is not IV tPA candidate due to outside the therapeutic window and we do not suspect that his presentation is due to vascular phenomenon. [id number]/[facility] #: [id number] [facility]
--- NOTE | 2018-05-29 22:13 | HP ---
CC: Akira Calvillo NP; Dr. Colin Stewart HISTORY AND PHYSICAL: DATE OF ADMISSION: 05/29/18 PRIMARY CARE PROVIDER: Akira Calvillo NP PRIMARY NEUROLOGIST: Dr. Colin Stewart. ATTENDING PHYSICIAN: Dr. Vikram Cramer * (dictated by Elsa Silva NP) CHIEF COMPLAINT: Inability to ambulate and bilateral lower extremity weakness. HISTORY OF PRESENT ILLNESS: Mr. Jason is a 62-year-old male with a past medical history significant for HIV positive, hypertension, possible atrial fibrillation, alcohol abuse, depression, chronic back pain, alcoholic neuropathy , and possible seizure disorder, who was in his usual state of health and underwent an elective right cataract extraction and lens implantation yesterday with Dr. Del Cid. The patient was in his usual state of health. He went grocery shopping and returned home after the procedure. He watched a movie around 4 p.m. with his partner and went to bed around 7 p.m. and continued to be in his normal state of health. This morning around 4:30 a.m., the patient was requiring some assistance with urination by his partner. At that time, he was noted to have some difficulty getting dressed. At baseline, the patient walks with a walker due to severe neuropathy. According to the patient's partner, he was also noted to be hallucinating. The patient is being worked up by Dr. Stewart for possible underlying NPH and being weaned off Depakote. It is to note that according to his primary care provider's office notes, he does not have a history of a seizure disorder, but takes Depakote for depression. The patient denies any recent seizure activity. When I did ask if he has had a seizure, he said he had one here in the hospital last week, but he was not hospitalized last week and has not been hospitalized since March; at which time , he was here for alcohol withdrawal with DTs. According to the patient, he was told in the past that he had atrial fibrillation but then was told that he did not and he states that is why he is not on anticoagulation. The patient states that he often takes his Depakote 1 dose in the evening when he remembers 500 to 1000 mg 3 to 4 times a week typically. He denies any fevers, chills, chest pain, shortness of breath, nausea, vomiting, diarrhea, abdominal pain. He reports taking his metoprolol and Lasix this morning. Again, the patient presented to the emergency room for further evaluation of his symptoms. While in the emergency room, the patient had Code Clark called. He was seen by Dr. Garrett with Neurology. He immediately had a brain CT showing no acute findings. Labs showing lactic acidosis with a lactic acid of 3.3. He had other labs that were fairly unremarkable. He had toxicology showing positive for amphetamines and benzos. I suspect the benzos are secondary to he received lorazepam while in the emergency room. His serum alcohol level was less than 10. I felt that this is likely not a stroke, but most likely an encephalopathy and hospitalists were asked to evaluate the patient for admission. PAST MEDICAL HISTORY: 1. HIV. 2. Hypertension. 3. Possible atrial fibrillation. 4. Alcohol abuse. 5. Depression. 6. Chronic back pain. 7. Severe alcoholic neuropathy. PAST SURGICAL HISTORY: 1. Status post left wrist ORIF and removal of hardware. 2. Status post right cataract extraction on 05/28/18. MEDICATIONS: Home medications include: 1. Prednisolone 1% ophthalmic solution 1 drop to the right eye 3 times daily. 2. Ketorolac 0.5% ophthalmic solution 1 drop to the right eye 3 times daily. 3. Multivitamin 1 tablet oral daily. 4. Finasteride 5 mg oral every morning. 5. Depakote 500 mg oral in the morning and 1000 mg oral at bedtime. 6. Wellbutrin 300 mg oral every morning. 7. Percocet 5/325 one tablet oral every 4 hours as needed for pain. 8. Singulair 10 mg oral every morning. 9. Metoprolol succinate 50 mg oral every morning. 10. Furosemide 20 mg oral every morning as needed. 11. Lidocaine 4% topical twice daily as needed. 12. Triumeq 1 tablet every oral every morning. 13. Flexeril 5 to 10 mg oral 3 times daily as needed. ALLERGIES: LATEX, SEASONAL ALLERGIES. FAMILY HISTORY: The patient denies family history of coronary artery disease or diabetes. His father had a history of colon cancer and mother with a history of cervical cancer. SOCIAL HISTORY: He reports quitting smoking 2 months ago. Prior to that, he smoked a pack a day since age 15. He is a former alcoholic drinking 15 ounces of vodka daily. According to him and his partner, he has not had a drink in 5 weeks. He occasionally smokes marijuana. His last Coccaine use was approximately 1 year ago. He lives with his partner, Saul Andrade, who will be his surrogate decision maker in the event he is unable to make decisions for himself. REVIEW OF SYSTEMS: I performed an 11-point review of systems. All the pertinent positives and negatives are mentioned in the history of present illness. The remaining review of systems is negative. PHYSICAL EXAMINATION GENERAL APPEARANCE: The patient is alert, but drowsy, pleasant, appears to be in no acute distress. VITAL SIGNS: Temperature 98.7, heart rate 114, respiratory rate 20, O2 sat 93% on room air, blood pressure 169/105. HEENT: Normocephalic, atraumatic. Right pupil is dilated with minimal response. Left eye is reactive to light, round. Extraocular movements are intact. Left nostril with some old dry blood noted. RESPIRATORY: There is no accessory muscle use. Lungs are clear to auscultation , bilateral. CARDIOVASCULAR: Regular rate and rhythm. S1, S2 present. There are no murmurs , rubs, or gallops heard. He is tachycardic. ABDOMEN: Soft, nontender, nondistended. There are bowel sounds present x4. EXTREMITIES: There is no lower extremity edema. DP and PT pulses are 2+ and symmetric. MUSCULOSKELETAL: There is no clubbing or cyanosis noted. The patient exhibits good strength in all extremities. NEUROLOGICAL: He is alert and oriented to self, place, with confusion. Cranial nerves II through XII are grossly intact. PSYCHOLOGICAL: He is mostly calm and cooperative at this time, but was very agitated upon arrival. SKIN: There are no rashes or abnormalities seen. DIAGNOSTIC STUDIES/LAB DATA: Sodium 136, potassium 3.9, chloride 108, CO2 20, BUN 13, creatinine 1.06, glucose 112. White blood cell count 9.3, hemoglobin 14.3, hematocrit 41, platelets 233. Lactic acid 3.3. Head CTA from today. Radiologist's impression: Atherosclerosis. No internal carotid artery stenosis by NASCET criteria. No aneurysm, vascular malformation , occlusion, or stenosis of the visualized intracranial circulation. Brain CT from today. Radiologist's impression: No evidence for gross acute infarct, mass effect, or hemorrhage. Atrophy and findings consistent with chronic small vessel ischemic changes. Chest x-ray from today. Radiologist's impression: Hyperinflation. No active cardiopulmonary disease. EKG shows a sinus tachycardia with a rate of [address] depression in V4, appears to be new from previous EKG, but this EKG is similar to previous from . IMPRESSION: Mr. Jason is a 62-year-old male with a past medical history significant for human immunodeficiency virus positive, alcohol abuse, possible atrial fibrillation, hypertension, depression, chronic back pain, severe alcoholic neuropathy, who presents to the emergency room with hallucinations and inability to ambulate. He will be admitted as an observation for altered mental status, gait disorder. ASSESSMENT/PLAN: 1. Altered mental status. The patient has large differential that can cause this encephalopathy with delirium. This could be secondary to toxic metabolic encephalopathy, hypertensive encephalopathy, his human immunodeficiency virus, medication related as he was recently started on 2 eye drops, this could be secondary to seizures, could be secondary to Wernicke's encephalopathy, and amphetamine use. The plan is to give the patient IV thiamine in the emergency room and continue him on 100 mg oral daily. We are going to check ammonia, TSH , B12, Depakote level, and EEG to rule out seizures. We are going to hold on an MRI for now. He has been in contact with Dr. Del Cid's office and it is okay to hold his Ketorolac eye drops as they are known to have an adverse reaction of causing hallucinations in order to control his hypertension. For now, I am going to hold on an lumbar puncture as I do not suspect this is caused by an infection, but he could benefit from an lumbar puncture to rule out normal pressure hydrocephalus in the future. He will have neuro checks q.4 hours. He will be monitored on telemetry. Neurology will continue to follow with the patient. We will place him on seizure precautions but it appears that he does not actually have a history of seizures and takes Depakote for his depression. 2. Severe peripheral neuropathy. The patient is noted to have a gait disorder due to his severe alcoholic peripheral neuropathy. We will have Physical Therapy evaluate him. At baseline, he ambulates with a walker. He should continue to follow Neurology for this outpatient. 3. Status post right cataract extraction. The patient is postop day #1. We are going to hold his Ketorolac eye drops. This has been okayed by Dr. Del Cid. He will be continued on his prednisolone eye drops. He should follow with Dr. Del Cid's office after discharge from the hospital. 4. Lactic acidosis. Unclear cause. He is going to receive IV rehydration and we will check repeat labs. He has no signs of infection at this time. His chest x- ray is clear. His urinalysis is negative. 5. Depression. The patient will be continued on his home Depakote and Wellbutrin. 6. Atrial fibrillation. According to the patient, he does not have a history of atrial fibrillation. He is going to be monitored on telemetry. He is not currently anticoagulated. 7. Hypertension. The patient was hypertensive upon arrival initially with EMS. His blood pressures have improved during his stay. We will continue him on his home metoprolol and furosemide. We will order hydralazine as needed for systolic blood pressures greater than 180, diastolic greater than 110. 8. Benign prostatic hyperplasia. The patient will be continued on his home Proscar. 9. Human immunodeficiency virus. The patient will be continued on his home antiretrovirals. He should continue to follow with Dr. Andrade. 10. Possible seizure disorder. The patient reports no recent seizure activity according to his PCP office notes. He does not have a history of seizures, but takes Depakote for depression. We will monitor him on seizure precautions for now since it is in the differential of his altered mental status. 11. Chronic pain. I will continue his home Percocet dosing and Tylenol as needed. 12. Fluids, electrolytes, and nutrition. He will be on a heart-healthy diet. 13. Code status. Full code. 14. DVT prophylaxis. He is at high risk. Will have subcu heparin. 15. Disposition. Observation. TIME SPENT: Time for this admission was approximately 60 minutes, greater than half of that was spent with the patient discussing medications, past medical history, the events leading up to his arrival today, performing a physical examination. The case has been reviewed with the attending, Dr. Cramer, who agrees with the plan of care. Reviewed by DIONICIO GAYLE 05/30/18 1948 [id number]/[facility] #: [id number] RAMA
[2018-05-29] MEDS ORDERED: Acetaminophen TAB* 325 MG PO PRN (22:23)
[2018-05-29] MEDS ORDERED: oxyCODONE/Acetamin 5/325 MG* TAB PO PRN (22:23)
[2018-05-29] MEDS ORDERED: Cyclobenzaprine TAB* 10 MG PO PRN (22:23)
[2018-05-30] MEDS: Heparin VIAL(*) 5000 UNITS/ML VIAL (FIVE THOUSAND) SUBCUT SCH ×2 (05:05→13:57)
[2018-05-30] MEDS: prednisoLONE 1% OPHTH.SUSP* 5 ML OPHTH.SUSP RIGHT EYE SCH ×2 (08:40→13:57)
[2018-05-30] MEDS ORDERED: ABACAVIR PO SCH (09:00)
[2018-05-30] MEDS ORDERED: Multivitamins/Minerals TAB PO SCH (09:00)
[2018-05-30] MEDS ORDERED: BuPROPion XL* 300 MG TAB.XL PO SCH (09:00)
[2018-05-30] MEDS ORDERED: Metoprolol Succinate XL TAB* 50 MG PO SCH (09:00)
[2018-05-30] MEDS ORDERED: Thiamine TAB* 100 MG TAB PO SCH (09:00)
[2018-05-30] MEDS ORDERED: Finasteride TAB* 5 MG PO SCH (09:00)
[2018-05-30] MEDS ORDERED: LAMIVUDI PO SCH (09:00)
[2018-05-30] MEDS ORDERED: Montelukast Sodium TAB* 10 MG PO SCH (09:00)
[2018-05-30] MEDS ORDERED: Divalproex DR TAB(*) 500 MG PO SCH (09:00)
[2018-05-30] MEDS ORDERED: DOLUTEGRAVIR PO SCH (09:00)
--- NOTE | 2018-05-30 09:33 | PN ---
Subjective Date of Service: 05/30/18 Length of Stay: 1 Days Neurology is following Mr. Jason for the evaluation and management of confusion state. Interval History: He informed me today that he has been consuming alcohol after his discharge from the hospital in April. He stated that he complete stopped drinking approximately one week ago. Also, he stated that he was using methamphetamine but then denied it within the same minute. He has chronic gait and memory dysfunction. He stated,"you can touch my feet without me yelling at you now." He denied any new weakness, paresthesias, swallowing difficulty, or headache. He was able to tolerate his diet without any choking events. Review of Systems: Denied CP, SOB, or palpitations. Objective Active Medications: Abacavir/Dolutegravir/Lamivudine (Triumeq Tablet (Nf)) 1 tab PO [facility] Last Admin: 05/30/18 08:52 Dose: Not Given Acetaminophen (Tylenol Tab*) 650 mg PO Q4H PRN PRN Reason: FEVER/PAIN Last Admin: 05/30/18 00:10 Dose: 650 mg Bupropion HCl (Bupropion Xl*) 300 mg PO [facility] Cyclobenzaprine HCl (Flexeril Tab*) 5 mg PO TID PRN PRN Reason: SPASMS - MUSCLE Divalproex Sodium (Depakote Dr Tab(*)) 500 mg PO [facility] Last Admin: 05/30/18 08:39 Dose: 500 mg Divalproex Sodium (Depakote Dr Tab(*)) 1,000 mg PO QPM [facility] Last Admin: 05/29/18 17:10 Dose: 1,000 mg Finasteride (Proscar Tab*) 5 mg PO [facility] Last Admin: 05/30/18 08:40 Dose: 5 mg Heparin Sodium (Porcine) (Heparin Vial(*)) 5,000 units SUBCUT Q8HR [facility] Last Admin: 05/30/18 05:05 Dose: 5,000 units Hydralazine HCl (Apresoline Iv*) 5 mg IV SLOW PU Q6H PRN PRN Reason: BLOOD PRESSURE Metoprolol Succinate (Toprol Xl Tab*) 50 mg PO [facility] Last Admin: 05/30/18 08:39 Dose: 50 mg Montelukast Sodium (Singulair Tab*) 10 mg PO [facility] Last Admin: 05/30/18 08:40 Dose: 10 mg Multivitamins/Minerals (Theragran/Minerals Tab*) 1 tab PO QAM [facility] Last Admin: 05/30/18 08:39 Dose: 1 tab Ondansetron HCl (Zofran Tab*) 4 mg PO Q6H PRN PRN Reason: NAUSEA Oxycodone/Acetaminophen (Percocet 5/325 Tab*) 1 tab PO Q4H PRN PRN Reason: PAIN - SEVERE Prednisolone Acetate (Pred Forte 1%*) 1 drop RIGHT EYE TID [facility] Last Admin: 05/30/18 08:40 Dose: 1 drop Thiamine HCl (Vitamin B-1 Tab*) 100 mg PO DAILY [facility] Last Admin: 05/30/18 08:39 Dose: 100 mg Vital Signs 05/29/18 05/29/18 05/29/18 12:11 12:31 12:36 Temperature 98.7 F Pulse Rate 114 Respiratory 20 19 21 Rate Blood Pressure 169/105 168/102 (mmHg) O2 Sat by Pulse 93 Oximetry 05/29/18 05/29/18 05/29/18 12:52 13:00 13:06 Temperature Pulse Rate Respiratory 20 24 21 Rate Blood Pressure 148/102 (mmHg) O2 Sat by Pulse Oximetry 05/29/18 05/29/18 05/29/18 13:30 13:37 14:00 Temperature 98.9 F Pulse Rate 99 Respiratory 18 23 17 Rate Blood Pressure 148/92 156/96 (mmHg) O2 Sat by Pulse 99 Oximetry 05/29/18 05/29/18 05/29/18 14:07 15:21 19:32 Temperature 98.9 F 97.5 F Pulse Rate 101 86 Respiratory 24 18 18 Rate Blood Pressure 153/94 142/100 148/94 (mmHg) O2 Sat by Pulse 94 98 Oximetry 05/29/18 05/29/18 05/30/18 20:05 23:15 00:46 Temperature 98.1 F 98.1 F Pulse Rate 79 79 Respiratory 16 Rate Blood Pressure 111/72 111/72 (mmHg) O2 Sat by Pulse 98 94 94 Oximetry 05/30/18 04:29 Temperature 97.4 F Pulse Rate 74 Respiratory 18 Rate Blood Pressure 118/76 (mmHg) O2 Sat by Pulse 96 Oximetry Intake and Output Last 24 Hours 05/28/18 05/29/18 05/30/1818 06:59 06:59 06:59 06:59 Intake Total 1050 Output Total 1050 Balance 0 Weight 176 lb Intake: IV Fluids 1050 Oral 0 Output: Urine 1050 Other: Estimated Void Medium # Bowel Movements 0 # Voids 1 Oxygen Devices in Use Now: None Neurology Exam: General: Well appearing man in no acute distress. HEENT: Normocephelic/atraumatic, sclera anicteric Neck: Supple Chest: Clear to auscultation bilaterally Cardiovascular: Regular rate and rhythm without murmurs, rubs, gallops Extremities: No clubbing, cyanosis, or edema Neurological Findings: Awake, alert, oriented to person, place, time, and current circumstances. Speech: fluent without dysarthric, repetition intact Cranial Nerve: PEERL, EOM intact, no facial asymmetry. Motor: s/s throughout, proximal and distal extremities x4 tone/bulk normal Sensation: distal to proximal sensory gradient demarcated at the knees bilaterally. Deep Tendon Reflex: 2+ throughout except for absent at the ankles. Finger to nose is intact. Gait: wide based gait with mild swaying towards the right and left. He did require a walker to ambulate. Result Diagrams: 05/29/18 12:32 05/29/18 12:32 Additional Lab and Data: Lab Results 05/29/18 Range/Units 12:32 WBC 9.3 (3.5-10.8) 10^3/ul RBC 4.05 (4.00-5.40) 10^6/ul Hgb 14.3 (14.0-18.0) g/dl Hct 41 L (42-52) % MCV 102 H (80-94) fL MCH 35 H (27-31) pg MCHC 35 (31-36) g/dl RDW 13 (10.5-15) % Plt Count 233 (150-450) 10^3/ul MPV 7.3 L (7.4-10.4) um3 Neut % (Auto) 65.6 (38-83) % Lymph % (Auto) 26.7 (25-47) % Warren % (Auto) 7.2 H (0-7) % Eos % (Auto) 0.1 (0-6) % Baso % (Auto) 0.4 (0-2) % Absolute Neuts (auto) 6.1 (1.5-7.7) 10^3/ul Absolute Lymphs (auto) 2.5 (1.0-4.8) 10^3/ul Absolute Monos (auto) 0.7 (0-0.8) 10^3/ul Absolute Eos (auto) 0 (0-0.6) 10^3/ul Absolute Basos (auto) 0 (0-0.2) 10^3/ul Absolute Nucleated RBC 0 10^3/ul Nucleated RBC % 0 Assessment/Plan 1. Acute toxic-metabolic encephalopathy causing delirium - The toxic may have been methamphetamine. Another differential diagnosis includes alcohol withdrawal or Wernicke's encephalopathy. I think the latter is high on the differential since he seemed to maybe respond to high dose IV thiamine. - Recommendations: continue PO thiamine 100 mg daily. Educated the patient regarding cessation of both alcohol and amphetamine use. He verbalized understanding 2. 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 He told me that he missed a follow-up appointment with Dr. Stewart. I recommend alcohol cessation. If he is not taking vitamin b12 supplementation, start him on cyanocobalamin 500 mcg daily. We discussed fall precautions. He may benefit from evaluation by PT before discharge. Time spent: 35 minutes of which >50% was spent with education and discussing the treatment plan as mentioned above. I will sign off but I am available for any questions or concerns.
[2018-05-30 12:19] VITALS: BP 130/79
--- NOTE | 2018-05-31 04:58 | DS ---
CC: Akira Calvillo NP; Colin Stewart MD * DISCHARGE SUMMARY: DATE OF ADMISSION: 05/29/18 DATE OF DISCHARGE: 05/30/18 PRIMARY CARE PROVIDER: Akira Calvillo NP NEUROLOGIST: Colin Stewart MD PRIMARY DIAGNOSIS: Toxic metabolic encephalopathy. SECONDARY DIAGNOSES: Include: 1. Chronic alcohol abuse. 2. Alcoholic neuropathy. 3. Depression. 4. Hypertension. 5. Human immunodeficiency virus. MEDICATIONS ON DISCHARGE: Include: 1. Multivitamin 1 tab daily. 2. Lidocaine 4% topically twice daily as needed. 3. Lasix 20 mg in the morning as needed. 4. Triumeq 1 tab in the morning. 5. Prednisolone 1% one drop to the right eye 3 times a day. 6. Percocet 5/325 one tab every 4 hours as needed, none prescribed. 7. Montelukast 10 mg in the morning. 8. Ondansetron 4 mg every 6 hours as needed for nausea. 9. Finasteride 5 mg in the morning. 10. Metoprolol succinate 50 mg in the morning. 11. Depakote 500 mg in the morning and 1000 mg at night. 12. Bupropion XL 300 mg in the morning. 13. Ketorolac 0.5% one drop to the right eye 3 times daily. 14. Flexeril 5 to 10 mg 3 times a day as needed. 15. Thiamine 100 mg daily. 16. Vitamin B12 500 mcg daily. Please note the addition of thiamine and vitamin B12 to home medication list. PERTINENT LABORATORY STUDIES: Hemoglobin 14, white blood cell count 9.3, platelets 233. Lactic acid 3.3 on presentation, 1.0 on repeat. Ammonia 31. Troponin I 0.00. TSH 0.62. Vitamin B12 is 363. Urine is bland and urine toxicology was positive for amphetamines and benzodiazepines. HISTORY OF PRESENT ILLNESS AND HOSPITAL COURSE: This is a 62-year-old gentleman with past medical history as outlined in the history of present illness on the day of admission, presented to the hospital with gait imbalance as well as hallucinations. Presented to the hospital, code montez was called, evaluated by Dr. Garrett, did not believe this to be TIA or CVA. Subsequently, the patient's urine toxicology returned positive for amphetamines and benzodiazepines. It is not clear whether the benzodiazepines lab test was secondary to that administered in the emergency room. The patient suffers from chronic gait instability secondary to cerebellar degeneration from chronic alcohol abuse. The patient gives an inconsistent history to this author as well as admitting provider as well as neurologist regarding his alcohol consumption. He told this author that he drinks 1 pint of vodka daily and has not increased or decreased his alcohol consumption. Approximately 30 seconds later, he tells me that he stopped drinking approximately 10 days ago. He was confronted with the amphetamine screen by Dr. Garrett and the patient denied amphetamine use and then admitted amphetamine use again in close succession. When seen by this author, the patient reports that he thinks he knows what happened and that his roommate's bottle of Adderall was next to his bottle of oxycodone in the dark and he thinks he took the wrong medication. The veracity of his claim is unclear; however, it is believed that amphetamine use and potentially benzodiazepine use led to the acute change in mental status presenting as acute delirium/toxic metabolic encephalopathy. The patient has recovered back to his baseline on the day of discharge. Reasons to return to the hospital including but not limited to recurrent or worsening symptoms, chest pain, shortness of breath, nausea, vomiting, lightheadedness, loss of consciousness or near loss of conscious, hallucinations , inability to obtain or tolerate medications, frequent falls, bleeding from any source were discussed with the patient and he acknowledged understanding. At followup, please; 1. Evaluate for continued alcohol abstinence. 2. Evaluate for resumption of symptoms. 3. No other specific labs or vitals that need followup. TIME SPENT: Greater than 60 minutes was spent on the discharge of the patient, greater than 15 minutes was spent in counseling alcohol and illicit medication cessation. [id number]/[facility] #: [id number] RAMA
--- NOTE | 2018-05-31 13:41 | EEG ---
ELECTROENCEPHALOGRAPHY: DATE OF SERVICE: 05/29/18 DATE READ: 05/30/18 MEDICATIONS: 1. Vitamin B1. 2. Heparin. 3. Prednisolone. 4. Triumeq. 5. Bupropion. 6. Finasteride 7. Metoprolol. 8. Montelukast. 9. Theragran. 10. Ondansetron. 11. Lorazepam 2 mg that was given at 12:52. ORDERED PROVIDER: Elsa Anders NP CLINICAL PROBLEM: Mr. Jermaine Jason is a 62-year-old man with history of HIV and alcohol abuse, who presented with acute confusion state. This EEG was obtained to exclude nonconvulsive status epilepticus. CLINICAL STATE: Awake. REPORT: The background consisted of a mixed frequency in the alpha, delta, theta, and mostly diffuse beta range with a frequency of 15-18 Hz. There were some epochs that showed appropriate organization and clearly defined anterior- posterior voltage gradient. The majority of the study showed diffuse low- amplitude alpha and beta frequencies. There was a waking background of 10 Hz, which was symmetrical and showed normal reactivity. There were intervals of moderate amplitude diffuse delta and theta frequencies ranging in the 2-5 Hz lasting for 1-2 seconds. Hyperventilation and photic stimulation were not performed. Throughout the recording, there were no electrographic seizures. CLINICAL IMPRESSION: This is an abnormal awake EEG due to diffuse slowing of the background, which is typically seen with mild nonspecific encephalopathy. The diffuse beta frequency is also seen with benzodiazepine and barbiturate use. There were no electrographic seizures. [id number]/[facility] #: [id number] [facility]
== END 2018-05-30 15:00 | disposition home or self-care (01) ==
LOC: ED 12:08 → MEDTELE 13:17
PROVIDERS: ADMIT Internal Medicine; ATTEND Internal Medicine
DX: G92 Toxic encephalopathy (principal); G62.1 Alcoholic polyneuropathy; F32.9 Major depressive disorder, single episode, unspecified; I10 Essential (primary) hypertension; B20 Human immunodeficiency virus [HIV] disease; R53.1 Weakness; M54.9 Dorsalgia, unspecified; G89.29 Other chronic pain; E87.2 Acidosis; Z87.891 Personal history of nicotine dependence; N40.0 Benign prostatic hyperplasia without lower urinary tract symptoms; R26.0 Ataxic gait; G40.909 Epilepsy, unspecified, not intractable, without status epilepticus; R00.0 Tachycardia, unspecified; Z79.899 Other long term (current) drug therapy
CPT/HCPCS: 36415; 70450; 70496; 70498; 71045; 80053; 80061; 80164; 80307; 80320; 81003; 81015; 82140; 82607; 83605; 84443; 84484; 85025; 85610; 85730; 86850; 86900; 86901; 93005; 95819; 96365; 96372; 96375; 99285; A9270-GY; G0378; G0480; J1644; J2060; J3411; Q9967

== ENCOUNTER 2018-08-27 07:25 | Day surgery (SDC) | payer BC, OTHER ==
[~2018-08-27 07:25] MED LIST changes: -Buffered Lidocaine 0.9% SYRIN* 5 ML/SYR SYRINGE INTRADERM ONE
[2018-08-27] MEDS ORDERED: fentaNYL* 50 MCG/ML 2 ML VIAL (100 MCG VIAL) ONE (09:13)
[2018-08-27] MEDS ORDERED: Midazolam* 1 MG/ML 5 ML VIAL (5 MG) ONE (09:13)
[2018-08-27 10:27] VITALS: BP 122/85
[2018-08-27] MEDS ORDERED: Buffered Lidocaine 0.9% SYRIN* 5 ML/SYR SYRINGE INTRADERM ONE (11:47)
--- NOTE | 2018-08-27 12:10 | OP ---
OPERATIVE NOTE: DATE OF OPERATION: 08/27/18. DATE OF : 57. SURGEON: Toni Del Cid M.D. PREOPERATIVE DIAGNOSIS: Cataract, left eye. POSTOPERATIVE DIAGNOSIS: Cataract, left eye. OPERATIVE PROCEDURE: Extracapsular cataract extraction with intraocular lens implant, left eye. PROCEDURE: The patient was brought to the operating room after being given 1/2% Alcaine with epineph rine drops in the preoperative area. The eye was prepped and draped in the usual sterile fashion. S terile drape and eyelid speculum were placed. Again, topical 1/2% Alcaine with epinephrine was given . A paracentesis incision was made at the 3 o'clock position with the No.75 blade. Clear cornea inc ision 2.2 x 2.2-mm was created at the 6 o'clock position starting at the anterior limbus using the 2. 2-mm keratome. The anterior chamber was irrigated with 0.4 mL of 1% non-preservative intracameral li docaine and filled with DisCoVisc. A capsulorrhexis was completed using the cystotome and the Utrata forceps. Hydrodissection was performed with balanced salt solution. The lens nucleus was removed wi th the Phacoemulsification handpiece without incident. Cortex was removed with the irrigation-aspira tion handpiece. The capsular bag was re-inflated using DisCoVisc and an [id number] implant was insert ed with the shooter. The irrigation-aspiration handpiece was used to remove all residual DisCoVisc. The eye was refilled with balanced salt solution and the wound checked and found to be watertight. Topical Maxitrol drops were given. [id number]/[facility] #: [id number]
[2018-08-27] MEDS ORDERED: Neomycin/Polymy/Dex OPTH.SUSP* MAXITROL 0.1% 5 ML ONE (12:43)
[2018-08-27] MEDS ORDERED: Ketorolac 0.5% OPHTH (NF) 0.5 % 5 ML BTL ONE (12:43)
[2018-08-27] MEDS ORDERED: Povidone Iodine 5% OPTH* 30 ML BTL ONE (12:43)
[2018-08-27] MEDS ORDERED: Lidocaine 2% EPI 1:200000 MPF*10-20 ML VIAL ONE (12:43)
[2018-08-27] MEDS ORDERED: acetaZOLAMIDE TAB* 250 MG ONE (12:43)
[2018-08-27] MEDS ORDERED: Cyclopentolate 1% OPTH.SOL* 2 ML BTL ONE (12:43)
[2018-08-27] MEDS ORDERED: Lidocaine 1%* 5 ML VIAL ONE (12:43)
[2018-08-27] MEDS ORDERED: Phenylephrine 2.5% OPTH.SOL* 2 ML BTL ONE (12:43)
[2018-08-27] MEDS ORDERED: Proparacaine 0.5% OPHTH.SOL* 15 ML BTL ONE (12:50)
== END 2018-08-27 10:37 | disposition home or self-care (01) ==
LOC: OREAST 07:25
PROVIDERS: ATTEND Specialist
DX: H25.812 Combined forms of age-related cataract, left eye (principal); F17.210 Nicotine dependence, cigarettes, uncomplicated; Z21 Asymptomatic human immunodeficiency virus [HIV] infection status; I10 Essential (primary) hypertension; F31.9 Bipolar disorder, unspecified
CPT/HCPCS: A9270-GY; J2250; J3010; V2632